=== PATIENT | male | born 1955 | race Caucasian/White ===

== ENCOUNTER → 2019-12-11 08:16 | Outpatient (CLI) | payer MEDICARE, BC, SELFPAY ==
--- NOTE | 2019-12-11 08:16 | MR_ITS ---
PROCEDURE: MR SHOULDER LT WO CON CLINICAL INDICATION: left shoulder pain after fall LT SHOULDER PAIN. PT FELL AND LANDED ON SHOULDER [id number] AGO. PAIN WHEN RAISING ARM. ARM CATCHES AND MAKES A POPPING NOISE. WEAKNESS IN ARM. NO PRIOR. COMPARISON: No exams were available for comparison TECHNIQUE: Routine multiplanar multi echo sequences are performed without gadolinium enhancement. FINDINGS: Hypertrophic changes are present at the acromioclavicular joint with resultant subacromial stenosis. There is some impingement upon the musculotendinous junction of the supraspinatus tendon. There is some increased T2 signal within the supraspinatus and infraspinatus tendons consistent with tendinopathy/tendinosis. A definite tear is not identified. The subscapularis and teres minor tendons are intact. The bicipital tendon is in place. No obvious labral tear. Small amount of fluid is present in the subcoracoid region. IMPRESSION: Hypertrophic changes of the AC joint with some impingement upon the supraspinatus tendon with tendinopathy/tendinosis but no evidence of rotator cuff tear. Small amount fluid noted in the sub coracoid region Dictated by: Reji Green MD 12/12/2019 12:21 Reji Green MD in [place] 12/12/2019 12:21
== END ==
PROVIDERS: PCP Family Medicine; Visit Provider Family Medicine
DX: M25.512 Pain in left shoulder (principal); S49.92XD Unspecified injury of left shoulder and upper arm, subsequent encounter
CPT/HCPCS: 73221

== ENCOUNTER 2020-01-10 13:00 | Outpatient (RCR) | payer MEDICARE, BC, SELFPAY ==
--- NOTE | 2019-12-09 12:05 | HMH.OTOPEV ---
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 Chief Complaint Pain Symptom Type Ache Symptoms Relieved By Nothing Symptoms Aggravated By Physical Activity Prior Functional Limitations None Current Functional Limitations Reaching,Lifting Symptom Description Constant and Continuous Level of pain today (0-10) 6 Pain scale - at its best (0-10) 6 Pain scale - at its worst (0-10) 10 Shoulder/Elbow Eval Shoulder Objective Measurements Shoulder ROM Left Shoulder Abduction Active Range of 80 Motion (degrees) Shoulder Flexion Active Range of Motion 90 (degrees) Query Text: Shoulder External Rotation Active Range 50 of Motion (degrees) Shoulder Internal Rotation Active Range 60 of Motion (degrees) Shoulder MMT Shoulder Abduction Strength Grade 3- Fair- Shoulder Flexion Strength Grade 3- Fair- Shoulder Horizontal Abduction Strength 3- Fair- Grade Shoulder Horizontal Adduction Strength 3- Fair- Grade Shoulder External Rotation Strength 3- Fair- Grade Shoulder Internal Rotation Strength 3- Fair- Grade Shoulder Strength Patient Testing Sitting Position Shoulder Special Tests impingement sign present shoulder exam left standard Shoulder Drop Arm Test Negative Left Shoulder Empty Can (Supraspinatus) Test Positive Left Shoulder Mendiola-Brian Impingement Positive Left Test Elbow Objective Measurements OT Outpatient Assessment Impairments Problems/Impairments Impaired Range of Motion, Impaired Strength,Subjective C /O Pain Prognosis Rehab Potential Good Clinical Impression Consistent with Diagnosis Yes Short Term Goals Number of Weeks 2 Increase Range of Motion Yes: L shoulder AROM flex: 120 ; ABD: 120; ER: 60 and IR
--- NOTE | 2020-01-06 14:01 | HMH.RHREAS ---
Rehab Reassessment Rehab OP Re-assessment Start: 01/06/20 13:10 Freq: Status: Active Protocol: Document 01/06/20 13:44 KENNYRUBEN (Rec: 01/06/20 13:57 KENNYRUBEN [id number]) Electronically Signed By Antoinette Queen, RADHA 01/06/20 13:44 Rehab Re-assessment Subjective Subjective My shoulder is still bothering me. I see the doctor on the . Objective Objective Notes Patient has participated well in skilled OP services of thera act, thera exer and modalities to improve B UE AAROM, AROM and decrease pain management. Patient AROM of B UE shoulder flex, ABD, ER and IR, strengthen and endurance has improved. However Patient continues to verbalize increase high pain levels at night. 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 Assessment Progress Assessment Progressing as Expected Assessment Notes AROM has improved. Endurance has improved. Pain remained the same. Patient goals met L shoulder AROM flex: 130 ABD: 120 ER: 70 IR: 65 Goals Not Met L pain levels 6/10 Revised Goals L shoulder AROM flex: 140 ABD: 140 ER: 80 IR: 65 Pain at worst 5/10 Endurance to 40 mins prior to RB. Plan Plan Patient to complete another OT session on 01/10/20. Follow with ortho on 01/14/20 Frequency of Therapy 1-2x/wk Duration of therapy 4 Time and Billing Re-Eval Time 15 Re-Eval Billing Units 1 PHYSICIAN CERTIFICATION: I certify the specified therapy services for Chris Eddy are required, authorized, and reviewed every 30 days.
== END 2020-01-10 14:02 | disposition home or self-care (01) ==
LOC: OT 13:00
PROVIDERS: PCP Family Medicine; Visit Provider Family Medicine
DX: S49.92XD Unspecified injury of left shoulder and upper arm, subsequent encounter (principal); M25.512 Pain in left shoulder
CPT/HCPCS: 97014; 97033; 97035; 97110; 97164; 97530; G0283

== ENCOUNTER → 2020-01-14 13:23 | Outpatient (CLI) | payer MEDICARE, BC, SELFPAY ==
--- NOTE | 2020-01-14 13:30 | XR_ITS ---
PROCEDURE: XR SHOULDER LT MIN 2V CLINICAL INDICATION: left shoulder pain COMPARISON: No exams were available for comparison FINDINGS: Osteoarthritic changes are present at the acromioclavicular joint and glenohumeral joint. No fracture or dislocation. No lytic or blastic change. Other findings:No significant subacromial stenosis IMPRESSION: Mild osteoarthritis Dictated by: Reji Green MD 01/14/2020 16:59 Reji Green MD in [place] 01/14/2020 16:59
== END ==
PROVIDERS: PCP Family Medicine; Visit Provider Orthopaedic Surgery
DX: M25.512 Pain in left shoulder (principal)
CPT/HCPCS: 73030

== ENCOUNTER → 2020-04-21 07:52 | Outpatient (CLI) | payer MEDICARE, BC, SELFPAY ==
--- NOTE | 2020-04-21 07:53 | MR_ITS ---
PROCEDURE: MR CERVICAL SPINE WO CON (3D volume rendering MRI myelogram image set included) Referring Doctor: Paolo Colunga Patient Age:65Y CLINICAL INDICATION: neck pain Left side neck pain since fallJuly 2019 left arm pain and numbness COMPARISON: No exams were available for comparison TECHNIQUE: Standard multiplanar multiecho sequences are performed without contrast. 3-D MIP and myelographic images are also rendered and reviewed 3D volume rendering MRI myelogram image set included performed on MRI workstation FINDINGS: No prominent cranial cervical junction is normal. Normal alignment C-spine with no subluxation. Vertebral bodies are intact and disc spaces are well maintained. I would only note that at C4/5 there is a small disc protrusion at midline which mildly effaces the thecal sac and may just abut the cervical cord but does not it. There is a generous volume underlying osseous cervical canal in the cervical cord appears normal in caliber and signal throughout. The 3D MR myelogram image set shows only scant if any anterior indentation upon the thecal sac C4/5. No significant cut off of nerve root sleeves. Most notable additional finding are the perineural cysts lower lower C-spine c. These are seen along and towards periphery of-neural foramen most evident at C6/7 and to less degree C5/6 of with small perineural cyst at C4/5 to the left the only IMPRESSION: No prominent findings at the C-spine. Minor observations Only trace/scant central disc protrusion at C4/5 noted. Barely appreciable and only very slightly indenting the thecal sac at midline. Other minor observation: Incidental note small perineural cysts at the lower [id number] evident bilaterally at C6/7 and C5/6, and less evident to the left C4/5 Dictated by: Evangelista Dasilva MD 04/26/2020 13:27 Evangelista Dasilva MD in [place] 04/26/2020 13:27
== END ==
PROVIDERS: PCP Family Medicine; Visit Provider Family Medicine
DX: M54.2 Cervicalgia (principal)
CPT/HCPCS: 72141; 76376

== ENCOUNTER → 2020-05-18 18:08 | Outpatient (CLI) | payer MEDICARE, BC, SELFPAY ==
[2020-05-26 11:23] LABS: Neisseria gonorrhoeae, NAA Negative (Negative)
== END ==
PROVIDERS: Visit Provider Family Medicine
DX: Z11.3 Encounter for screening for infections with a predominantly sexual mode of transmission (principal); Z72.51 High risk heterosexual behavior; Z72.89 Other problems related to lifestyle
CPT/HCPCS: 87491; 87591

== ENCOUNTER → 2020-05-27 17:12 | Outpatient (CLI) | payer MEDICARE, BC, SELFPAY | PROVIDERS: PCP Family Medicine; Visit Provider Family Medicine | DX: Z20.822 Contact with and (suspected) exposure to COVID-19 (principal) | CPT/HCPCS: U0003 ==

== ENCOUNTER → 2020-08-20 13:22 | Outpatient (CLI) | payer MEDICARE, BC, SELFPAY ==
[2020-08-20 13:44] LABS: Basophils % 0.5 % (0.1-2.0); Eosinophils # 0.4 K/mm3 (0.0-0.4); Eosinophils % 5.5 % (0.1-12.0); Hematocrit 43.2 % (42.0-52.0); Hemoglobin 14.8 g/dL (14.1-18.0); Lymphocytes # 2.3 K/mm3 (0.7-4.5); Lymphocytes % 28.9 % (10-50); Mean Corpuscular HGB Conc 34.2 g/dL (31.8-35.4); Mean Corpuscular Volume 96.5 fl (80-94); Mean Platelet Volume 8.1 fl (7.4-10.4); Monocytes # 0.6 K/mm3 (0.1-1.0); Neutrophils # 4.6 K/mm3 (1.8-7.8); Platelet Count 225 K/mm3 (142-424); Red Blood Count 4.48 M/mm3 (4.60-6.20); Red Cell Distribution Width 13.8 % (11.5-17.5); White Blood Count 7.9 K/mm3 (4.8-10.8)
[2020-08-20 14:07] LABS: Chloride 102 mmol/L (98-107)
[2020-08-20 14:08] LABS: Potassium 4.4 mmoL/L (3.5-5.1); Sodium 135 mmol/L (136-145)
[2020-08-20 14:10] LABS: Alanine Aminotransferase 64 U/L (12-78); Albumin Level 4.5 g/dl (3.5-5.0); Albumin/Globulin Ratio 1.6 (1.1-1.8); Alkaline Phosphatase 67 U/L (38-126); Anion Gap 15.4 mEq/L (5-15); Aspartate Amino Transferase 47 U/L (17-59); Bilirubin,Total 0.7 mg/dl (0.2-1.3); Blood Urea Nitrogen 14 mg/dl (9-20); Carbon Dioxide 22 mmol/L (22.0-30.0); Cholesterol 224 mg/dl (140-200); Estimated Glomerular Filt Rate 97 ml/min (>60); GFR (African American) 117 ML/MIN (>60); Globulin 2.9 g/dL (1.3-3.2); Total Protein,Serum 7.4 g/dl (6.3-8.2); Triglycerides 245 mg/dl (30-150); VLDL Cholesterol 49 mg/dL (0-40)
[2020-08-20 14:11] LABS: Calcium 9.2 mg/dl (8.4-10.2); Chol/HDL Ratio 6.1 (1-3.5); Glucose 114 mg/dl (74-100); HDL Cholesterol 37 mg/dl (40-60)
[2020-08-20 14:17] LABS: Hemoglobin A1C 6.3 % (4.0-6.0)
[2020-08-20 14:22] LABS: Direct LDL Cholesterol 143.68 mg/dL (100-129)
[2020-08-20 14:28] LABS: T4 (Thyroxine) 7.9 ug/dl (5.53-11.0)
[2020-08-20 14:42] LABS: Thyroid Stimulating Hormone 3.88 uIU/mL (0.465-4.68)
[2020-08-20 15:29] LABS: Prostate Specific Ag Screen 0.7 ng/ml (0.0-4.0)
== END ==
PROVIDERS: Visit Provider Family Medicine
DX: Z12.5 Encounter for screening for malignant neoplasm of prostate (principal); G47.00 Insomnia, unspecified; E11.9 Type 2 diabetes mellitus without complications; N52.9 Male erectile dysfunction, unspecified; Z79.84 Long term (current) use of oral hypoglycemic drugs
CPT/HCPCS: 80053; 80061; 83036; 84436; 84443; 85025; G0103

== ENCOUNTER 2020-10-01 12:02 | Observation (INO) | payer MEDICARE, BC, SELFPAY ==
[2020-10-01 12:18] VITALS: BP 160/87; PULSE 100; RESP 20; TEMP 36.9; O2SAT 96; BMI 37.2
--- NOTE | 2020-10-01 12:53 | XR_ITS ---
PROCEDURE: XR KNEE LT 2V CLINICAL INDICATION: pain COMPARISON: No exams were available for comparison FINDINGS: There is very slight decrease in the joint space medially which may be related to minimal osteoarthritic change. No fracture or dislocation. No lytic or blastic change. Other findings:None. IMPRESSION: Minimal osteoarthritic change medial compartment Dictated by: Reji Green MD 10/01/2020 14:28 Reji Green MD in [place] 10/01/2020 14:28
--- NOTE | 2020-10-01 12:53 | XR_ITS ---
PROCEDURE: XR KNEE RT 2V CLINICAL INDICATION: pain COMPARISON: No exams were available for comparison FINDINGS: No fracture or dislocation. No lytic or blastic change. There is normal mineralization. There are mild osteoarthritic changes of the medial compartment and to lesser degree at the patellofemoral joint and lateral compartment. Other findings:There may be a small suprapatellar effusion. IMPRESSION: Mild osteoarthritis Dictated by: Reji Green MD 10/01/2020 14:27 Reji Green MD in [place] 10/01/2020 14:27
--- NOTE | 2020-10-01 12:53 | XR_ITS ---
PROCEDURE: XR CHEST 2V CLINICAL HISTORY: dyspnea COMPARISON: No exams were available for comparison FINDINGS: The cardiomediastinal silhouette and pulmonary vascularity are within normal limits. There are slight increased markings in the right lower lung zone medially suspicious for an area of infiltrate. No acute bony abnormalities. IMPRESSION: Possible infiltrate in the right lower lobe medially Dictated by: Reji Green MD 10/01/2020 14:31 Reji Green MD in [place] 10/01/2020 14:31
--- NOTE | 2020-10-01 12:55 | P.CONPHA_ITS ---
[facility] Pharmacy VTE Monitoring - Patient Demographics Admission date: 10/01/20 Report Date: 10/01/20 Time: 12:55 Allergies/Adverse Reactions: Patient Allergies No Known Allergies Allergy (Verified 10/01/20 11:06) Height: 1.88 m Weight: 131.542 kg - Prophylaxis VTE Prophylaxis Ordered?: Yes Types of VTE Prophylaxis: TEDS Knee High Location of Applied Device: Bilateral Lower Extremeties
[2020-10-01 13:35] LABS: Basophils % 0.3 % (0.1-2.0); Eosinophils # 0.3 K/mm3 (0.0-0.4); Eosinophils % 1.8 % (0.1-12.0); Hemoglobin 14.7 g/dL (14.1-18.0); Lymphocytes % 14.3 % (10-50); Mean Corpuscular HGB Conc 34.9 g/dL (31.8-35.4); Mean Corpuscular Hemoglobin 32.9 pg (27.0-31.2); Mean Corpuscular Volume 94.3 fl (80-94); Mean Platelet Volume 8.3 fl (7.4-10.4); Monocytes # 0.9 K/mm3 (0.1-1.0); Monocytes % 6.2 % (1.7-9.3); Neutrophils # 10.9 K/mm3 (1.8-7.8); Neutrophils % 77.5 % (37.0-80.0); Platelet Count 234 K/mm3 (142-424); Red Blood Count 4.45 M/mm3 (4.60-6.20); Red Cell Distribution Width 13.5 % (11.5-17.5); White Blood Count 14.1 K/mm3 (4.8-10.8)
[2020-10-01 13:42] LABS: Chloride 101 mmol/L (98-107); Potassium 4.5 mmoL/L (3.5-5.1); Sodium 135 mmol/L (136-145)
[2020-10-01 13:44] LABS: Blood Urea Nitrogen 20 mg/dl (9-20); Creatinine Clearance Estimated 137 mL/min (50-200); Estimated Glomerular Filt Rate 135 ml/min (>60); GFR (African American) 164 ML/MIN (>60)
[2020-10-01 13:45] LABS: Alanine Aminotransferase 35 U/L (12-78); Albumin Level 4.6 g/dl (3.5-5.0); Albumin/Globulin Ratio 1.3 (1.1-1.8); Alkaline Phosphatase 60 U/L (38-126); Anion Gap 12.5 mEq/L (5-15); Aspartate Amino Transferase 31 U/L (17-59); Bilirubin,Total 0.9 mg/dl (0.2-1.3); Calcium 9.2 mg/dl (8.4-10.2); Carbon Dioxide 26 mmol/L (22.0-30.0); Globulin 3.6 g/dL (1.3-3.2); Glucose 108 mg/dl (74-100); Total Protein,Serum 8.2 g/dl (6.3-8.2)
[2020-10-01 13:51] LABS: C-Reactive Protein 22.8 mg/L (0-4)
[2020-10-01 14:11] LABS: Erythrocyte Sedimentation Rate 73 mm/hr (0-20)
[2020-10-01 14:56] VITALS: BP 158/80; PULSE 98; RESP 18; TEMP 36.7; O2SAT 97
--- NOTE | 2020-10-01 17:36 | PC.NURSE ---
HE IS AOX4, ABLE TO MAKE NEEDS KNOWN TO STAFF, HE HAS BEEN UP TO CHAIR SINCE ARRIVING TO FLOOR, VITAL SIGNS HAVE REMAINED STABLE, PT HAS DENIED DIFFICULTY BREATHING AND HAS NOT REQUIRED O2 SUPPORT, HE DENIES N/V/D, HAS TOLERATED REGULAR DIET WELL, NO NEEDS VOICED
--- NOTE | 2020-10-01 19:19 | HMH.HP ---
*Admission Date: 10/01/20 *Chief complaint: angioedema *History of present illness: Patient is a 65-year-old white male, known to me from the office, who was direct admitted for angioedema with escalating features. The patient had been spraying an insecticide in his garden preceding his admission. He evidently used a very potent dose, and it came in contact with his skin. He developed a skin lesion on the dorsum of his right thumb, had called the office with symptoms suggesting contact dermatitis with possible cellulitis. We called in a course of oral Keflex and topical Temovate. The patient's systemic complaints escalated, he had a low-grade fever, diffuse joint pain, hives on his upper extremities, lower extremities, trunk and back, overt swelling of the lips and earlobes and a sensation of tightness in his neck and throat. He related that he felt absolutely horrible and was concerned about the swelling in his upper airway. This led to the decision to meet him for IV steroids, IV Benadryl, and further work-up. Of note is a visit to the emergency room in [place] but a month ago following a tick bite in his abdomen. He relays that he was put on a course of antibiotics. Receipt of specific information from the hospital is pending at the time of dictation. Patient does not have an YUMIKO inhibitor on board, and I think his symptoms are more related to exposure than infection. He is noted to have inflammatory markers elevated, Lyme studies are pending. [facility] History Medical History: Reports:: Anxiety, Depression, Diabetes Mellitus Type 1, Hypertension *Have you ever received a pneumonia vaccine?: Yes *Have you received a flu vaccine this season?: Yes Other Surgeries: Yes: Colonoscopy, Other Amputation: No Fractures: No - *Social History Last grade of school completed: High school graduate Smoking Status: Never smoker Alcohol Intake: never Alcohol Intake Frequency:: a few times a month Substance Use Type: denies use *Occupational Status:: employed Housing: house Household Members: other *Travel in the last 8 weeks: None - Psychiatric History Pschychiatric History:: Reports:: Anxiety, Depression Family Hx:: Cancer, Diabetes, Heart Attack, Hypertension, Stroke Review of Systems - Constitutional Reports body ache(s), Reports fatigue, Reports fever(s), Reports lack of energy, Reports malaise, Reports weakness - Eyes Denies change in vision - ENT Reports change in voice, Reports hoarseness, Reports lip swelling, Reports mouth pain, Reports pain with swallowing, Reports sore throat, Reports throat swelling, Reports tongue swelling - *Cardiovascular Reports shortness of breath, Denies chest pain - *Respiratory Reports chest congestion - *Gastrointestinal Denies abdominal pain - *Genitourinary Denies difficulty urinating - *Musculoskeletal Reports abnormal walking, Reports joint pain, Reports joint swelling, Reports muscle cramps, Reports muscle weakness, Reports body aches, Reports numbness, Reports stiffness - Integumentary/Breasts Reports changing lesions, Reports redness, Reports lesions, Reports new lesions, Reports rash, Denies yellowing of the skin - *Neurologic Reports abnormal walking, Reports numbness, Reports sensory deficit, Reports weakness - Psychiatric Reports abnormal sleep pattern - Endocrine Reports flushing - Hematologic/Lymphatic Denies easy bleeding - Allergic/Immunologic Reports itchy eyes, Reports lip swelling, Reports throat swelling, Reports tongue swelling, Reports hives, Reports wheezing Meds Home Medications Medication Instructions Recorded Confirmed Type zolpidem 5 mg tablet 5 mg PO HS PRN #30 tab 09/25/20 10/01/20 Rx Atorvastatin Calcium [Lipitor 20mg 20 mg PO DAILY 10/01/20 10/01/20 History Tab] Clobetasol Propionate [Temovate 1 applic TOPICAL BID 10/01/20 10/01/20 History 0.05% cream 15gm tube] Meloxicam 15 mg PO DAILY 10/01/20 10/01/20 History Metformin HCl [Gluc
[2020-10-01 19:32] VITALS: BP 147/82; PULSE 100; RESP 16; TEMP 36.6; O2SAT 96
[2020-10-02 02:09] LABS: POC Glucose,Bedside 413 (70-110)
[2020-10-02 02:27] LABS: POC Glucose,Bedside 244 (70-110)
[2020-10-02 03:47] VITALS: BP 128/74; PULSE 92; RESP 16; TEMP 36.6; O2SAT 92
--- NOTE | 2020-10-02 04:47 | PC.NURSE ---
Patient was a direct admit from Dr. Colunga's office. He us A&Ox4 , vital signs have been stable. Patient has had no complaints this shift. He has rested well. He is independent. Call hall is within reach, bed is in lowest position.
[2020-10-02 05:00] VITALS: BMI 37.2
[2020-10-02 08:00] VITALS: BP 145/83; PULSE 102; RESP 20; TEMP 36.9; O2SAT 96
--- NOTE | 2020-10-02 08:03 | HMH.PHAINT ---
clarified home medication list using list from [facility] and pt interview
--- NOTE | 2020-10-02 08:48 | HMH.DCSUM ---
General - General Admission date:: 10/01/20 Discharge date: 10/02/20 HPI HPI: Patient is a 65-year-old white male, known to me from the office, who was direct admitted for angioedema with escalating features. The patient had been spraying an insecticide in his garden preceding his admission. He evidently used a very potent dose, and it came in contact with his skin. He developed a skin lesion on the dorsum of his right thumb, had called the office with symptoms suggesting contact dermatitis with possible cellulitis. We called in a course of oral Keflex and topical Temovate. The patient's systemic complaints escalated, he had a low-grade fever, diffuse joint pain, hives on his upper extremities, lower extremities, trunk and back, overt swelling of the lips and earlobes and a sensation of tightness in his neck and throat. He related that he felt absolutely horrible and was concerned about the swelling in his upper airway. This led to the decision to meet him for IV steroids, IV Benadryl, and further work-up. Of note is a visit to the emergency room in [place] but a month ago following a tick bite in his abdomen. He relays that he was put on a course of antibiotics. Receipt of specific information from the hospital is pending at the time of dictation. Patient does not have an YUMIKO inhibitor on board, and I think his symptoms are more related to exposure than infection. He is noted to have inflammatory markers elevated, Lyme studies are pending. Hospital Course Hospital Course: Laboratory Tests 10/01/20 10/01/20 10/01/20 13:20 13:20 16:32 WBC 14.1 H RBC 4.45 L Hgb 14.7 Hct 42.0 MCV 94.3 H MCH 32.9 H MCHC 34.9 RDW 13.5 Plt Count 234 MPV 8.3 Neut % (Auto) 77.5 Lymph % (Auto) 14.3 [place] % (Auto) 6.2 Eos % (Auto) 1.8 Baso % (Auto) 0.3 Neut # (Auto) 10.9 H Lymph # (Auto) 2.0 [place] # (Auto) 0.9 Eos # (Auto) 0.3 Baso # (Auto) 0.0 ESR 73 H Sodium 135 L Potassium 4.5 Chloride 101 Carbon Dioxide 26 Anion Gap 12.5 BUN 20 Creatinine 0.60 L Estimated Creat Clear 137 Estimated GFR 135 Est GFR ( Amer) 164 Glucose 108 H POC Glucose 244 H Calcium 9.2 Total Bilirubin 0.9 AST 31 ALT 35 Alkaline Phosphatase 60 C-Reactive Protein 22.8 H Total Protein 8.2 Albumin 4.6 Globulin 3.6 H Albumin/Globulin Ratio 1.3 10/01/20 22:33 WBC RBC Hgb Hct MCV MCH MCHC RDW Plt Count MPV Neut % (Auto) Lymph % (Auto) [place] % (Auto) Eos % (Auto) Baso % (Auto) Neut # (Auto) Lymph # (Auto) [place] # (Auto) Eos # (Auto) Baso # (Auto) ESR Sodium Potassium Chloride Carbon Dioxide Anion Gap BUN Creatinine Estimated Creat Clear Estimated GFR Est GFR ( Amer) Glucose POC Glucose 413 H* Calcium Total Bilirubin AST ALT Alkaline Phosphatase C-Reactive Protein Total Protein Albumin Globulin Albumin/Globulin Ratio Microbiology 10/01/20 13:20 Nasopharyngeal Coronavirus COVID-19 PCR - Final PROCEDURE: XR KNEE LT 2V CLINICAL INDICATION: pain COMPARISON: No exams were available for comparison FINDINGS: There is very slight decrease in the joint space medially which may be related to minimal osteoarthritic change. No fracture or dislocation. No lytic or blastic change. Other findings:None. IMPRESSION: Minimal osteoarthritic change medial compartment PROCEDURE: XR KNEE RT 2V CLINICAL INDICATION: pain COMPARISON: No exams were available for comparison FINDINGS: No fracture or dislocation. No lytic or blastic change. There is normal mineralization. There are mild osteoarthritic changes of the medial compartment and to lesser degree at the patellofemoral joint and lateral compartment. Other findings:There may be a small suprapatellar effusion. IMPRESSION: Mild osteoarthritis PROCEDURE: XR CHEST 2V CLINICAL
[2020-10-02 12:00] LABS: POC Glucose,Bedside 241 (70-110)
== END 2020-10-02 11:14 | disposition home or self-care (01) ==
PROVIDERS: Admitting Provider Family Medicine; PCP Family Medicine; Visit Provider Family Medicine
DX: T78.3XXA Angioneurotic edema, initial encounter (principal); T60.91XA Toxic effect of unspecified pesticide, accidental (unintentional), initial encounter; L25.9 Unspecified contact dermatitis, unspecified cause; E11.9 Type 2 diabetes mellitus without complications; Z79.84 Long term (current) use of oral hypoglycemic drugs; Z79.899 Other long term (current) drug therapy; Y92.017 Garden or yard in single-family (private) house as the place of occurrence of the external cause; I10 Essential (primary) hypertension
CPT/HCPCS: G0379; 36415; 71046; 73560; 80053; 82962; 85025; 85651; 86140; 86618; G0378; U0003

== ENCOUNTER 2020-10-04 18:28 | Emergency (ER) | payer MEDICARE, BC, SELFPAY ==
[2020-10-04 18:29] VITALS: BP 152/85; PULSE 100; RESP 18; TEMP 36.8; O2SAT 95; BMI 36.9
[2020-10-04 19:00] VITALS: BP 146/89; PULSE 97; O2SAT 93
[2020-10-04 19:17] LABS: Basophils # 0.1 K/mm3 (0-0.2); Basophils % 0.4 % (0.1-2.0); Eosinophils # 0.2 K/mm3 (0.0-0.4); Eosinophils % 1.3 % (0.1-12.0); Hemoglobin 14.6 g/dL (14.1-18.0); Lymphocytes # 2.6 K/mm3 (0.7-4.5); Lymphocytes % 16.8 % (10-50); Mean Corpuscular HGB Conc 34.8 g/dL (31.8-35.4); Mean Corpuscular Hemoglobin 32.8 pg (27.0-31.2); Mean Corpuscular Volume 94.2 fl (80-94); Monocytes # 0.8 K/mm3 (0.1-1.0); Monocytes % 5.1 % (1.7-9.3); Neutrophils % 76.4 % (37.0-80.0); Platelet Count 237 K/mm3 (142-424); Red Blood Count 4.46 M/mm3 (4.60-6.20); Red Cell Distribution Width 13.3 % (11.5-17.5); White Blood Count 15.7 K/mm3 (4.8-10.8)
[2020-10-04 19:19] LABS: MANUAL DIFFERENTIAL MANUAL DIFFERENTIAL (MANUAL DIFF)
[2020-10-04 19:20] LABS: Alanine Aminotransferase 61 U/L (12-78); Albumin Level 4.2 g/dl (3.5-5.0); Albumin/Globulin Ratio 1.3 (1.1-1.8); Alkaline Phosphatase 66 U/L (38-126); Anion Gap 12.1 mEq/L (5-15); Aspartate Amino Transferase 34 U/L (17-59); Bilirubin,Total 0.9 mg/dl (0.2-1.3); Blood Urea Nitrogen 14 mg/dl (9-20); Calcium 8.7 mg/dl (8.4-10.2); Carbon Dioxide 28 mmol/L (22.0-30.0); Chloride 99 mmol/L (98-107); Creatinine Clearance Estimated 136 mL/min (50-200); Estimated Glomerular Filt Rate 135 ml/min (>60); GFR (African American) 164 ML/MIN (>60); Globulin 3.3 g/dL (1.3-3.2); Glucose 126 mg/dl (74-100); Potassium 4.1 mmoL/L (3.5-5.1); Sodium 135 mmol/L (136-145); Total Protein,Serum 7.5 g/dl (6.3-8.2)
[2020-10-04 19:30] VITALS: BP 121/68; PULSE 94; O2SAT 93
[2020-10-04 19:32] LABS: Lymphocytes % 12 % (10-50); Monocytes % 4 % (2-9); Neutrophils % 84 % (42-76); Platelet Estimate Normal; RBC Morphology Normal; Total Cells Counted 100
--- NOTE | 2020-10-04 19:41 | HMH.EDGENADL ---
ED Disposition Clinical Impression: Acute urticaria Disposition: Home, Self-Care Condition on Discharge: Good Instructions: DI for Hives Additional Instructions: Prednisone, hydroxyzine, Pepcid as prescribed. See Dr. Colunga in the office tomorrow as scheduled. Additional instructions for ALLERGIC REACTION: Return immediately if severe intolerable rash or itching, trouble breathing, or faintness. Prescriptions: hydrOXYzine pamoate [Hydroxyzine Pamoate] 50 mg PO Q6H 5 Days #20 cap Transmission Status: Pending to [facility] Famotidine [Pepcid 20mg Tablet] 20 mg PO BID 5 Days #10 tab Transmission Status: Pending to [facility] predniSONE [Prednisone 20mg Tab] 20 mg PO BID #10 tab Transmission Status: Pending to [facility] Referrals: Paolo Colunga MD [Primary Care Provider] - - Critical Care Critical Care Time: No Attestation: On 10/04/20, the high probability of a clinically significant, sudden or life threatening deterioration of the following system(s) required my full and direct attention, intervention and personal management. The time I documented below is in addition to time spent performing reported procedures but includes the following listed in this critical care notation. Medical Decision Making - Luis Daniel Inquiry Pt receiving controlled substance: No Vital Signs: 10/04/20 18:29 Temperature 98.2 F Temperature Source Oral Pulse Rate [Right] 100 H Respiratory Rate 18 Blood Pressure [Right Arm] 152/85 H Blood Pressure Mean [Right Arm] 107 02 Sat by Pulse Oximetry 95 Oxygen Delivery Method Room Air - Lab Data Lab Results 10/04/20 19:05: WBC 15.7 H, RBC 4.46 L, Hgb 14.6, Hct 42.0, MCV 94.2 H, MCH 32.8 H, MCHC 34.8, RDW 13.3, Plt Count 237, MPV 8.0, Neut % (Auto) 76.4, Lymph % (Auto) 16.8, [place] % (Auto) 5.1, Eos % (Auto) 1.3, Baso % (Auto) 0.4, Neut # (Auto) 12.0 H, Lymph # (Auto) 2.6, [place] # (Auto) 0.8, Eos # (Auto) 0.2, Baso # (Auto) 0.1, Total Counted 100, Neutrophils % (Manual) 84 H, Lymphocytes % (Manual) 12, Monocytes % (Manual) 4, Platelet Estimate Normal, RBC Morphology Normal 10/04/20 19:05: Sodium 135 L, Potassium 4.1, Chloride 99, Carbon Dioxide 28, Anion Gap 12.1, BUN 14, Creatinine 0.60 L, Estimated Creat Clear 136, Estimated GFR 135, Est GFR ( Amer) 164, Glucose 126 H, Calcium 8.7, Total Bilirubin 0.9, AST 34, ALT 61, Alkaline Phosphatase 66, Total Protein 7.5, Albumin 4.2, Globulin 3.3 H, Albumin/Globulin Ratio 1.3 Result diagrams: 10/04/20 19:05 10/04/20 19:05 Orders (Tests/Meds): ED MEDICATIONS Generic Name Dose Route Start Last Admin Trade Name Freq PRN Reason Stop Dose Admin Sodium Chloride 1,000 mls @ 999 mls/hr 10/04/20 20:15 10/04/20 20:03 Sod Chlor 0.9% 1000ml Bag IV 10/04/20 21:15 999 mls/hr .Q1H1M CRYSTAL Administration Sodium Chloride 8 ml 10/04/20 19:45 Sodium Chloride 0.9% 10ml Vial IV 11/03/20 19:44 NEEDED PRN dilute pepcid Discontinued Medications Generic Name Dose Route Start Last Admin Trade Name Freq PRN Reason Stop Dose Admin Diphenhydramine HCl 25 mg 10/04/20 18:54 10/04/20 19:12 Diphenhydramine 50mg/Ml Vial IV 10/04/20 18:55 25 mg ONCE ONE Administration Famotidine 20 mg 10/04/20 19:45 10/04/20 20:03 Famotidine 20mg/2ml Vial IV 10/04/20 19:46 20 mg ONCE ONE Administration Methylprednisolone Sodium Succinate 125 mg 10/04/20 18:54 10/04/20 19:11 Methylprednisolone Sod Succ 125mg Vial IV 10/04/20 18:55 125 mg ONCE ONE Administration Metoclopramide HCl 5 mg 10/04/20 18:54 10/04/20 19:14 Metoclopramide Hcl 10mg/2ml Vial IVP 10/04/20 18:55 5 mg ONCE ONE Administration - Physician Consults Physician Consulted: Keanu Time: 20:05 Reason -: Pt condition Comment/Response: Start on steroids, antihistamines, Pepcid. He will see the patient in his office tomorrow as scheduled. General Adult HPI - General Chief complaint: Allergic Reaction State
[2020-10-04 20:00] VITALS: BP 136/72; PULSE 94; O2SAT 93
[2020-10-04 20:30] VITALS: BP 136/78; PULSE 93; O2SAT 93
[2020-10-04 21:26] VITALS: BP 134/71; PULSE 91; RESP 16; TEMP 36.8; O2SAT 94
== END 2020-10-04 21:28 | disposition home or self-care (01) ==
PROVIDERS: Emergency Provider Emergency Medicine; PCP Family Medicine
DX: L50.8 Other urticaria (principal); I10 Essential (primary) hypertension; F41.8 Other specified anxiety disorders; E10.9 Type 1 diabetes mellitus without complications; Z79.899 Other long term (current) drug therapy
CPT/HCPCS: 80053; 85007; 85025; 96374; 96375; 99282

== ENCOUNTER 2020-10-30 11:29 | Emergency (ER) | payer MEDICARE, BC, SELFPAY ==
[2020-10-30 11:30] VITALS: BP 166/72; PULSE 96; RESP 20; TEMP 36.7; O2SAT 97; BMI 36.4
--- NOTE | 2020-10-30 12:10 | HMH.EDUTC ---
[facility] [place] Clinical Impression: Acute urticaria Disposition: Home, Self-Care Condition on Discharge: Good Instructions: DI for Hives, DI for General Allergic Reactions, Prednisone Additional Instructions: Make sure to look around and try to avoid weeds or hay to see if that may be what is provoking your hives and allergic reaction Take medication as prescribed Start oral steriods tomorrow you was given injection today Follow up with your Family doctor Return if needed Prescriptions: hydrOXYzine pamoate [Hydroxyzine Pamoate] 50 mg PO Q8HP PRN #15 cap PRN Reason: Itching Transmission Status: Received by [employer] Famotidine [Pepcid 20mg Tablet] 20 mg PO BID #10 tab Transmission Status: Received by [employer] predniSONE [Prednisone 20mg Tab] 20 mg PO BID #10 tab Transmission Status: Received by [employer] Referrals: Paolo Colunga MD [Primary Care Provider] - As needed Time of Disposition: 12:45 Medical Decision Making - Luis Daniel Inquiry Pt receiving controlled substance: No Luis Daniel was queried for this patient: No Vital Signs: 10/30/20 11:30 10/30/20 12:38 Temperature 98.1 F 98.1 F Temperature Source Oral Pulse Rate 96 H Pulse Rate [Right Brachial] 96 H Respiratory Rate 20 20 Blood Pressure 166/72 H Blood Pressure [Right Arm] 166/72 H Blood Pressure Mean [Right Arm] 103 Blood Pressure Source [Right Arm] Automatic Cuff Blood Pressure Position [Right Arm] Sitting 02 Sat by Pulse Oximetry 97 Oxygen Delivery Method Room Air Orders (Tests/Meds): ED MEDICATIONS Discontinued Medications Generic Name Dose Route Start Last Admin Trade Name Freq PRN Reason Stop Dose Admin Famotidine 20 mg 10/30/20 12:17 10/30/20 12:23 Famotidine 20mg Tablet PO 10/30/20 12:18 20 mg ONCE ONE Administration Methylprednisolone Sodium Succinate 125 mg 10/30/20 12:17 10/30/20 12:24 Methylprednisolone Sod Succ 125mg Vial IM 10/30/20 12:18 125 mg ONCE ONE Administration Medical Decision Narrative: Patient state that he was given Prednisone, hydroxyzine and pepcid for his last break out and it worked to clear it up quickly [facility] [place] - General Stated complaint: hives all over body Time Seen by Provider: 10/30/20 12:10 Mode of Arrival: Ambulatory Source of Information: Patient Limitations: No Limitations Description of Symptoms (Recalled from Triage Doc. by RN): PATIENT C/O HIVES ALL OVER BODY. 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 HE WAS SEEN BY PCP AND ADMITTED TO HOSPITAL FOR THE HIVES. ALSO STATES HE CAME BACK AFTER D/C FROM HOSPITAL FOR FLARE UP OF HIVES WELL. HE STATES THE HIVES ARE STARTING TO MAKE HIM FEEL SICK AND REPORTS WEAKNESS, NAUSEA, AND SOA. CURRENTLY TAKING ALLERGY MEDICINES FOR THE HIVES, BUT THEY ARE NOT GETTING BETTER HEENT Symptoms (Recalled from RN notes): No Resp Symptoms (Recalled from RN notes): No Skin Symptoms (Recalled from RN notes): Yes MS Symptoms (Recalled from RN notes): No Functional Status (Recalled from RN notes): WNL - History of Present Illness Provider Complaint: Patient state that he used some commercial grade week killer about three weeks ago and it did not kill the weeds so he pulled them up by hand States that he broke out in hives all over his body and was admitted to the hospital for a day and they give him steriods and they went away States that then he went to another garden that had not been sprayed and pulled some weeds and again had to go to the ED for hives all over his body State that they give him some more steriods and they went away States that on Wed he cut some hay and has been rolling it now having hives again all over his body and in his hair States that he was up most of the night last night itching but they have not figured out what he may be allergic too - Related Data Home Medications Medication Instructions Recorded Confirme
[2020-10-30 12:38] VITALS: BP 166/72; PULSE 96; RESP 20; TEMP 36.7; O2SAT 97
== END 2020-10-30 12:58 | disposition home or self-care (01) ==
PROVIDERS: Emergency Provider Nurse Practitioner; PCP Family Medicine
DX: L50.8 Other urticaria (principal); F41.8 Other specified anxiety disorders; I10 Essential (primary) hypertension
CPT/HCPCS: G0463; 96372; 99202

== ENCOUNTER → 2021-02-18 19:12 | Outpatient (CLI) | payer MEDICARE, BC, SELFPAY ==
[2021-02-18 19:44] LABS: Basophils # 0.1 K/mm3 (0-0.2); Eosinophils # 0.3 K/mm3 (0.0-0.4); Hematocrit 48.8 % (42.0-52.0); Hemoglobin 16.3 g/dL (14.1-18.0); Lymphocytes # 2.2 K/mm3 (0.7-4.5); Lymphocytes % 22.2 % (10-50); Mean Corpuscular HGB Conc 33.5 g/dL (31.8-35.4); Mean Corpuscular Hemoglobin 32.6 pg (27.0-31.2); Mean Corpuscular Volume 97.4 fl (80-94); Mean Platelet Volume 8.3 fl (7.4-10.4); Monocytes # 0.6 K/mm3 (0.1-1.0); Monocytes % 6.1 % (1.7-9.3); Neutrophils # 6.7 K/mm3 (1.8-7.8); Neutrophils % 67.6 % (37.0-80.0); Platelet Count 272 K/mm3 (142-424); Red Blood Count 5.01 M/mm3 (4.60-6.20); Red Cell Distribution Width 13.7 % (11.5-17.5)
[2021-02-18 20:07] LABS: Chloride 102 mmol/L (98-107)
[2021-02-18 20:08] LABS: Sodium 140 mmol/L (136-145)
[2021-02-18 20:10] LABS: Alanine Aminotransferase 47 U/L (12-78); Albumin Level 4.5 g/dl (3.5-5.0); Albumin/Globulin Ratio 1.3 (1.1-1.8); Alkaline Phosphatase 79 U/L (38-126); Aspartate Amino Transferase 41 U/L (17-59); Bilirubin,Total 0.4 mg/dl (0.2-1.3); Blood Urea Nitrogen 8 mg/dl (9-20); Carbon Dioxide 24 mmol/L (22.0-30.0); Estimated Glomerular Filt Rate 166 ml/min (>60); GFR (African American) 201 ML/MIN (>60); Globulin 3.6 g/dL (1.3-3.2); Total Protein,Serum 8.1 g/dl (6.3-8.2)
[2021-02-18 20:11] LABS: Chol/HDL Ratio 4.3 (1-3.5); Cholesterol 145 mg/dl (140-200); Glucose 88 mg/dl (74-100); HDL Cholesterol 34 mg/dl (40-60); Triglycerides 192 mg/dl (30-150); VLDL Cholesterol 38 mg/dL (0-40)
[2021-02-18 20:34] LABS: Thyroid Stimulating Hormone 1.43 uIU/mL (0.465-4.68)
[2021-02-18 20:41] LABS: Direct LDL Cholesterol 85.34 mg/dL (100-129)
[2021-02-18 20:50] LABS: Hemoglobin A1C 5.7 % (4.0-6.0)
== END ==
PROVIDERS: Visit Provider Family Medicine
DX: I10 Essential (primary) hypertension (principal); T78.3XXA Angioneurotic edema, initial encounter; R06.00 Dyspnea, unspecified; E11.9 Type 2 diabetes mellitus without complications; E78.5 Hyperlipidemia, unspecified; Z79.84 Long term (current) use of oral hypoglycemic drugs
CPT/HCPCS: 80053; 80061; 83036; 84443; 85025

== ENCOUNTER → 2021-03-20 09:29 | Outpatient (CLI) | payer MEDICARE, BC, SELFPAY ==
[2021-03-20 09:34] LABS: MANUAL DIFFERENTIAL MANUAL DIFFERENTIAL (MANUAL DIFF)
[2021-03-20 09:55] LABS: Basophils # 0.1 K/mm3 (0-0.2); Basophils % 0.9 % (0.1-2.0); Eosinophils # 0.4 K/mm3 (0.0-0.4); Eosinophils % 4.1 % (0.1-12.0); Hematocrit 44.4 % (42.0-52.0); Hemoglobin 15.4 g/dL (14.1-18.0); Lymphocytes # 1.7 K/mm3 (0.7-4.5); Lymphocytes % 18.4 % (10-50); Mean Corpuscular HGB Conc 34.7 g/dL (31.8-35.4); Mean Corpuscular Hemoglobin 32.7 pg (27.0-31.2); Mean Corpuscular Volume 94.2 fl (80-94); Mean Platelet Volume 7.7 fl (7.4-10.4); Monocytes # 0.6 K/mm3 (0.1-1.0); Monocytes % 6.3 % (1.7-9.3); Neutrophils # 6.4 K/mm3 (1.8-7.8); Neutrophils % 70.2 % (37.0-80.0); Platelet Count 277 K/mm3 (142-424); Red Blood Count 4.71 M/mm3 (4.60-6.20); Red Cell Distribution Width 13.7 % (11.5-17.5); White Blood Count 9.1 K/mm3 (4.8-10.8)
[2021-03-20 10:27] LABS: Chloride 99 mmol/L (98-107)
[2021-03-20 10:28] LABS: Potassium 4.4 mmoL/L (3.5-5.1); Sodium 138 mmol/L (136-145)
[2021-03-20 10:31] LABS: Anion Gap 13.4 mEq/L (5-15); Blood Urea Nitrogen 16 mg/dl (9-20); Calcium 9.4 mg/dl (8.4-10.2); Carbon Dioxide 30 mmol/L (22.0-30.0); Estimated Glomerular Filt Rate 166 ml/min (>60); GFR (African American) 201 ML/MIN (>60); Glucose 160 mg/dl (74-100)
[2021-03-20 11:08] LABS: Eosinophils % 3 % (0-3); Lymphocytes % 20 % (10-50); Monocytes % 7 % (2-9); Neutrophils % 68 % (42-76); Platelet Estimate Normal; RBC Morphology Normal; Total Cells Counted 100
== END ==
PROVIDERS: Visit Provider Urology
DX: N47.1 Phimosis (principal); Z01.812 Encounter for preprocedural laboratory examination; Z11.52 Encounter for screening for COVID-19; Z51.81 Encounter for therapeutic drug level monitoring
CPT/HCPCS: 36415; 80048; 85007; 85014; 85018; 85048; 85049; C9803; U0003; U0005

== ENCOUNTER 2021-03-22 08:50 | Day surgery (SDC) | payer MEDICARE, BC, SELFPAY ==
[2021-03-12 10:58] VITALS: BMI 34.9
[2021-03-22 09:37] VITALS: BP 146/93; PULSE 89; RESP 18; TEMP 36.8; O2SAT 96
--- NOTE | 2021-03-22 11:25 | P.PN_ITS ---
[facility] Anesthesia Checklist - Patient Identification Patient Identification: Arm Band - Structural Data Admitted From: Home Planned Operative Procedure/s: Circumcision Consent for Planned Operative Procedure(s) Verified: Yes - NPO Status Verified Time NPO: 00:00 - Additional verifications Anesthesia Reactions: Yes (difficulty to urinating) Hx Blood Transfusions: No Blood Transfusion Reaction: No - Airway Assessment C-Spine Mobility Assessed: Yes TMJ Mobility Assessed: Yes Dentition: Edentulous - Neurological Assessment Level of Consciousness: Awake Hx Seizures: No Numbness or tingling in extremities: No - Anesthesia Plan Anesthesia Risk discussed: Yes Anesthesia Plan: Verified ASA Class: III Anesthesia Type: MAC [facility] History I have reviewed the patient's past medical history: Yes Medical History: Reports:: Anxiety, Depression, Diabetes Mellitus Type 2, Hypertension Denies:: Cancer, Diabetes Mellitus Type 1, Internal Pacemaker, MRSA, Seizures *Have you ever received a pneumonia vaccine?: Yes *Have you received a flu vaccine this season?: No Other Medical History: Reports: Arthritis. Denies: Blood Transfusion Reaction Anesthesia experience/problems:: None Other Surgeries: Yes: No Previous Surgery, Colonoscopy, Other. No: Pacemaker Amputation: No Fractures: No - *Social History Last grade of school completed: High school graduate Smoking Status: Never smoker Tobacco Type: smokeless tobacco # Packs/Day (cigarettes): 1 Alcohol Intake: current Alcohol Intake Frequency:: holidays/special occasions only Substance Use Type: denies use *Occupational Status:: retired Housing: house Household Members: other *Travel in the last 8 weeks: None - Psychiatric History Pschychiatric History:: Reports:: Anxiety, Depression Family Hx:: Cancer, Diabetes
[2021-03-22 12:18] VITALS: BP 109/52; PULSE 90; RESP 18; TEMP 36.3; O2SAT 94
[2021-03-22 12:33] VITALS: BP 118/56; PULSE 92; RESP 16; TEMP 36.3; O2SAT 93
[2021-03-22 12:48] VITALS: BP 116/67; PULSE 91; RESP 16; TEMP 36.3; O2SAT 96
--- NOTE | 2021-03-22 16:57 | P.OP_ITS ---
Date of procedure: 03/22/21 Pre-op Diagnosis:: Penile phimosis Post-op Diagnosis:: Penile phimosis Procedure performed:: Circumcision, adult Surgeon:: Cedrick Richardson MD NIGHT COORDINATOR:: Sly Russ Anesthesia: MAC Estimated blood loss (mL): 2 Clinical Note:: 66-year-old white male with penile phimosis. He presents for urologic management. Operative findings:: Penile phimosis is noted. After cutting and retracting the foreskin back there are some chronic changes at the glans penis and foreskin. No cancers noted. Operative note:: Patient taken to the operating room after informed consent was obtained. He was placed on the operating table in the supine position and general anesthesia administered. Preoperative antibiotics and sequential compression devices placed. 30 cc of local anesthetic was placed as a ring block around the base of the penis in a circumferential fashion. After adequate anesthesia incision was marked at the [place] of the glans. Straight clamp was used to clamp the dorsal foreskin back to the marked line for 30 seconds. It was then released and scissors used to incise the skin. Additional prep was placed after pulling the foreskin back. Foreskin was then clamped at 4 positions and scissors used to incise the foreskin in a circumferential fashion. Hemostasis then achieved of the underlying tissue and the skin was approximated 3-0 chromic's in interrupted fashion. The foreskin was noted to be very adhesed and adherent to the chronic phimosis. Compression dressing applied. Patient tolerated procedure well no complications. Condition: stable Disposition: same day Specimens:: Foreskin Complications:: None
[2022-01-20 10:54] LABS: POC Glucose,Bedside 117 (70-110)
== END 2021-03-22 12:50 | disposition home or self-care (01) ==
LOC: OR 08:51
PROVIDERS: PCP Family Medicine; Visit Provider Urology
DX: N47.1 Phimosis (principal); F41.9 Anxiety disorder, unspecified; F32.A Depression, unspecified; E11.9 Type 2 diabetes mellitus without complications; I10 Essential (primary) hypertension; M19.90 Unspecified osteoarthritis, unspecified site; F20.9 Schizophrenia, unspecified; F43.10 Post-traumatic stress disorder, unspecified; Z79.84 Long term (current) use of oral hypoglycemic drugs; Z79.899 Other long term (current) drug therapy
CPT/HCPCS: 54150; 82962; 96374

== ENCOUNTER → 2021-04-12 14:31 | Outpatient (CLI) | payer MEDICARE, BC, SELFPAY | PROVIDERS: Visit Provider Family Medicine | DX: Z98.890 Other specified postprocedural states (principal) | CPT/HCPCS: 87070; 87077; 87186; 87205 ==

== ENCOUNTER → 2021-06-14 16:00 | Outpatient (CLI) | payer MEDICARE, SELFPAY ==
[2021-06-14 19:19] LABS: Basophils # 0.1 K/mm3 (0-0.2); Basophils % 0.5 % (0.1-2.0); Eosinophils # 0.3 K/mm3 (0.0-0.4); Hematocrit 46.7 % (42.0-52.0); Hemoglobin 15.7 g/dL (14.1-18.0); Lymphocytes # 2.5 K/mm3 (0.7-4.5); Lymphocytes % 23.6 % (10-50); Mean Corpuscular HGB Conc 33.5 g/dL (31.8-35.4); Mean Corpuscular Hemoglobin 32.3 pg (27.0-31.2); Mean Corpuscular Volume 96.5 fl (80-94); Mean Platelet Volume 8.8 fl (7.4-10.4); Monocytes # 0.6 K/mm3 (0.1-1.0); Monocytes % 5.3 % (1.7-9.3); Neutrophils # 7.1 K/mm3 (1.8-7.8); Neutrophils % 67.6 % (37.0-80.0); Platelet Count 341 K/mm3 (142-424); Red Blood Count 4.84 M/mm3 (4.60-6.20); Red Cell Distribution Width 13.6 % (11.5-17.5); White Blood Count 10.5 K/mm3 (4.8-10.8)
[2021-06-14 19:49] LABS: Alanine Aminotransferase 36 U/L (12-78); Albumin Level 4.4 g/dl (3.5-5.0); Albumin/Globulin Ratio 1.3 (1.1-1.8); Alkaline Phosphatase 91 U/L (38-126); Anion Gap 15.3 mEq/L (5-15); Aspartate Amino Transferase 35 U/L (17-59); Bilirubin,Total 0.5 mg/dl (0.2-1.3); Blood Urea Nitrogen 17 mg/dl (9-20); Calcium 9.2 mg/dl (8.4-10.2); Carbon Dioxide 26 mmol/L (22.0-30.0); Chloride 100 mmol/L (98-107); Chol/HDL Ratio 4.5 (1-3.5); Cholesterol 201 mg/dl (140-200); Estimated Glomerular Filt Rate 135 ml/min (>60); GFR (African American) 163 ML/MIN (>60); Globulin 3.5 g/dL (1.3-3.2); Glucose 102 mg/dl (74-100); HDL Cholesterol 45 mg/dl (40-60); Potassium 4.3 mmoL/L (3.5-5.1); Sodium 137 mmol/L (136-145); Total Protein,Serum 7.9 g/dl (6.3-8.2); Triglycerides 88 mg/dl (30-150); VLDL Cholesterol 18 mg/dL (0-40)
[2021-06-14 20:06] LABS: 25-OH Vitamin D, Total 38.4 ng/mL (30-100)
[2021-06-14 20:20] LABS: Thyroid Stimulating Hormone 2.77 uIU/mL (0.465-4.68)
== END ==
LOC: LAB.DROPOF 06-16 09:33
PROVIDERS: Visit Provider Family Medicine
DX: Z00.00 Encounter for general adult medical examination without abnormal findings (principal); R06.00 Dyspnea, unspecified; T78.3XXA Angioneurotic edema, initial encounter; E55.9 Vitamin D deficiency, unspecified; N52.9 Male erectile dysfunction, unspecified
CPT/HCPCS: 80053; 80061; 82306; 84443; 85025

== ENCOUNTER → 2021-07-20 13:24 | Outpatient (CLI) | payer MEDICARE, SELFPAY ==
[2021-07-20 13:50] LABS: Erythrocyte Sedimentation Rate 26 mm/hr (0-20)
[2021-07-20 14:13] LABS: Uric Acid 5.2 mg/dl (3.5-8.5)
[2021-07-20 14:30] LABS: C-Reactive Protein 16.5 mg/L (0-4)
[2021-07-21 12:19] LABS: RA Latex Turbid. 589.1 IU/mL (<14.0)
[2021-07-21 18:10] LABS: Antinuclear Antibodies, IFA Negative (.)
== END ==
LOC: LAB.DROPOF 08-12 13:24
PROVIDERS: Visit Provider Family Medicine
DX: T78.3XXA Angioneurotic edema, initial encounter (principal)
CPT/HCPCS: 84550; 85651; 86038; 86140; 86431

== ENCOUNTER → 2021-08-20 16:00 | Outpatient (CLI) | payer MEDICARE, SELFPAY ==
[2021-08-20 17:20] LABS: Alanine Aminotransferase 31 U/L (12-78); Albumin Level 3.8 g/dl (3.5-5.0); Albumin/Globulin Ratio 1.3 (1.1-1.8); Alkaline Phosphatase 65 U/L (38-126); Anion Gap 12.8 mEq/L (5-15); Aspartate Amino Transferase 25 U/L (17-59); Basophils # 0.1 K/mm3 (0-0.2); Basophils % 0.6 % (0.1-2.0); Bilirubin,Total 0.5 mg/dl (0.2-1.3); Blood Urea Nitrogen 21 mg/dl (9-20); Calcium 9.1 mg/dl (8.4-10.2); Carbon Dioxide 28 mmol/L (22.0-30.0); Chloride 103 mmol/L (98-107); Eosinophils # 0.1 K/mm3 (0.0-0.4); Eosinophils % 1.2 % (0.1-12.0); Estimated Glomerular Filt Rate 97 ml/min (>60); GFR (African American) 117 ML/MIN (>60); Globulin 2.9 g/dL (1.3-3.2); Glucose 113 mg/dl (74-100); Hematocrit 42.2 % (42.0-52.0); Hemoglobin 14.2 g/dL (14.1-18.0); Lymphocytes # 3.1 K/mm3 (0.7-4.5); Lymphocytes % 26.4 % (10-50); Mean Corpuscular HGB Conc 33.5 g/dL (31.8-35.4); Mean Corpuscular Hemoglobin 32.3 pg (27.0-31.2); Mean Corpuscular Volume 96.4 fl (80-94); Mean Platelet Volume 9.1 fl (7.4-10.4); Monocytes # 0.6 K/mm3 (0.1-1.0); Monocytes % 4.9 % (1.7-9.3); Neutrophils # 7.9 K/mm3 (1.8-7.8); Neutrophils % 66.9 % (37.0-80.0); Platelet Count 239 K/mm3 (142-424); Potassium 3.8 mmoL/L (3.5-5.1); Red Blood Count 4.38 M/mm3 (4.60-6.20); Red Cell Distribution Width 14.5 % (11.5-17.5); Sodium 140 mmol/L (136-145); Total Protein,Serum 6.7 g/dl (6.3-8.2); White Blood Count 11.7 K/mm3 (4.8-10.8)
== END ==
LOC: LAB.DROPOF 08-23 18:04
PROVIDERS: Visit Provider Family Medicine
DX: M15.4 Erosive (osteo)arthritis (principal); T78.3XXA Angioneurotic edema, initial encounter
CPT/HCPCS: 80053; 85025

== ENCOUNTER → 2021-12-08 20:43 | Outpatient (CLI) | payer MEDICARE, SELFPAY | PROVIDERS: PCP Family Medicine; Visit Provider Emergency Medicine | DX: U07.1 COVID-19 (principal) | CPT/HCPCS: C9803; U0003; U0005 ==

== ENCOUNTER → 2022-05-13 15:09 | Outpatient (CLI) | payer MEDICARE, SELFPAY ==
[2022-05-13 14:09] LABS: Coronavirus 19, PCR Not Detected (NotDetected); Influenza A, PCR Not Detected (NotDetected); Influenza B, PCR Not Detected (NotDetected)
== END ==
PROVIDERS: PCP Family Medicine; Visit Provider Family Medicine
DX: R05.9 Cough, unspecified (principal)
CPT/HCPCS: C9803; U0003; U0005

== ENCOUNTER → 2022-06-13 15:06 | Outpatient (CLI) | payer MEDICARE, SELFPAY ==
--- NOTE | 2022-06-13 15:12 | XR_ITS ---
FINAL REPORT TECHNIQUE: Chest PA & Lateral CLINICAL HISTORY: soa for 2 months, pain in chest, frequent bouts of pna COMPARISON: September 2020 FINDINGS: 2 views of the chest were performed. The heart size is normal. The mediastinum is within normal limits. There is mild scarring in the lung bases. There are no pleural effusions. There is no pneumothorax. The bony thorax appears intact. IMPRESSION: No acute cardiopulmonary process. Reviewed, Interpreted and Dictated by Micky Cavazos III, MD Transcribed by Perez Jeuss Authenticated and [facility]
== END ==
LOC: RAD 15:08
PROVIDERS: PCP Family Medicine; Visit Provider Family Medicine
DX: J18.9 Pneumonia, unspecified organism (principal)
CPT/HCPCS: 71046

== ENCOUNTER → 2022-08-08 23:35 | Outpatient (CLI) | payer MEDICARE, SELFPAY ==
[2022-08-08 18:56] LABS: Alanine Aminotransferase 55 U/L (12-78); Albumin Level 4.1 g/dl (3.5-5.0); Albumin/Globulin Ratio 1.6 (1.1-1.8); Alkaline Phosphatase 59 U/L (38-126); Anion Gap 7.9 mEq/L (5-15); Aspartate Amino Transferase 35 U/L (17-59); Bilirubin,Total 0.5 mg/dl (0.2-1.3); Blood Urea Nitrogen 16 mg/dl (9-20); Calcium 8.8 mg/dl (8.4-10.2); Carbon Dioxide 27 mmol/L (22.0-30.0); Chloride 103 mmol/L (98-107); Chol/HDL Ratio 2.6 (1-3.5); Cholesterol 135 mg/dl (140-200); Estimated Glomerular Filt Rate 166 ml/min (>60); GFR (African American) 201 ML/MIN (>60); Globulin 2.6 g/dL (1.3-3.2); Glucose 136 mg/dl (74-100); HDL Cholesterol 51 mg/dl (40-60); Potassium 3.9 mmoL/L (3.5-5.1); Sodium 134 mmol/L (136-145); Total Protein,Serum 6.7 g/dl (6.3-8.2); Triglycerides 169 mg/dl (30-150); VLDL Cholesterol 34 mg/dL (0-40)
[2022-08-08 19:07] LABS: Direct LDL Cholesterol 65.78 mg/dL (100-129)
[2022-08-08 19:22] LABS: Basophils % 0.1 % (0.1-2.0); Eosinophils % 0.2 % (0.1-12.0); Hemoglobin 15.1 g/dL (14.1-18.0); Lymphocytes % 8.4 % (10-50); Mean Corpuscular HGB Conc 33.4 g/dL (31.8-35.4); Mean Corpuscular Hemoglobin 32.2 pg (27.0-31.2); Mean Corpuscular Volume 96.2 fl (80-94); Mean Platelet Volume 9.2 fl (7.4-10.4); Monocytes # 0.4 K/mm3 (0.1-1.0); Monocytes % 3.3 % (1.7-9.3); Platelet Count 214 K/mm3 (142-424); Red Blood Count 4.68 M/mm3 (4.60-6.20); White Blood Count 12.5 K/mm3 (4.8-10.8)
[2022-08-08 19:26] LABS: Thyroid Stimulating Hormone 1.27 uIU/mL (0.465-4.68)
[2022-08-08 19:29] LABS: MANUAL DIFFERENTIAL MANUAL DIFFERENTIAL (MANUAL DIFF)
[2022-08-08 19:50] LABS: Hemoglobin A1C 5.9 % (4.0-6.0)
[2022-08-08 20:38] LABS: Eosinophils % 1 % (0-3); Lymphocytes % 9 % (10-50); Monocytes % 3 % (2-9); Neutrophils % 87 % (42-76); Total Cells Counted 100
[2022-08-08 20:39] LABS: Platelet Estimate Normal; RBC Morphology Normal
== END ==
PROVIDERS: PCP Family Medicine; Visit Provider Family Medicine
DX: F39 Unspecified mood [affective] disorder (principal); G47.00 Insomnia, unspecified; N52.9 Male erectile dysfunction, unspecified; Z79.899 Other long term (current) drug therapy
CPT/HCPCS: 80053; 80061; 83036; 84443; 85007; 85025

== ENCOUNTER → 2022-10-06 14:05 | Outpatient (CLI) | payer MEDICARE, SELFPAY ==
--- NOTE | 2022-10-06 14:05 | CT_ITS ---
FINAL REPORT TECHNIQUE: Axial CT images were performed from the lung apices through the upper abdomen. Inspiration and expiration supine images were obtained. In addition prone images in inspiration were obtained. Coronal and sagittal reformats were submitted. This study was performed with techniques to keep radiation doses as low as reasonably achievable (ALARA). Individualized dose reduction techniques using automated exposure control or adjustment of mA and/or kV according to the patient's size were employed. CLINICAL HISTORY: soa FINDINGS: Severe coronary artery calcifications are identified. There is no evidence of emphysema or bronchiectasis identified. There is mild peripheral interstitial fibrosis present. There are small areas of air trapping in the upper lobes seen on the expiration images. There is no axillary adenopathy. There is no hilar or mediastinal mass or adenopathy. Heart size is normal. There is no pericardial or pleural effusion. Gallstones are identified in the gallbladder. Moderate vascular calcifications are noted. IMPRESSION: Mild peripheral interstitial fibrosis. Small areas of air trapping in the upper lobes on expiration. Gallstone present. Reviewed, Interpreted and Dictated by Micky Cavazos III, MD Transcribed by Cynthia Villa Authenticated and [facility]
[2022-10-06 15:10] VITALS: PULSE 87
== END ==
PROVIDERS: PCP Family Medicine; Visit Provider Internal Medicine Pulmonary Disease
DX: J84.9 Interstitial pulmonary disease, unspecified (principal); R06.02 Shortness of breath
CPT/HCPCS: 71250; 94060; 94618; 94640; 94727; 94729

== ENCOUNTER → 2023-01-16 14:38 | Outpatient (CLI) | payer MEDICARE, SELFPAY ==
--- NOTE | 2023-01-16 15:08 | PC.NURSE ---
Pre and Post Spirometry completed without incident. Albuterol 0.083% given via HHN, per protocol, Pt tolerated tx well.
== END ==
PROVIDERS: PCP Family Medicine; Visit Provider Internal Medicine Pulmonary Disease
DX: R06.02 Shortness of breath (principal)
CPT/HCPCS: 94060; 94726; 94729

== ENCOUNTER → 2023-03-31 09:05 | Outpatient (CLI) | payer MEDICARE, SELFPAY ==
[2023-03-31 21:55] LABS: Amphetamine/Metha Screen,Urine Negative ng/ml (<1000)
[2023-03-31 21:56] LABS: Barbiturates Screen,Urine Negative ng/ml (<200); Benzodiazepines Screen,Urine Negative ng/ml (<200)
[2023-03-31 21:57] LABS: Cannabinoid Screen,Urine Positive ng/ml (<50)
[2023-03-31 21:58] LABS: Cocaine Screen,Urine Negative ng/ml (<300)
[2023-03-31 21:59] LABS: Methadone Screen,Urine Negative ng/ml (<300); Opiate Screen,Urine Negative ng/ml (<300)
[2023-03-31 22:00] LABS: Phencyclidine Screen,Urine Negative ng/ml (<25)
== END ==
PROVIDERS: PCP Family Medicine; Visit Provider Family Medicine
DX: M54.2 Cervicalgia (principal)
CPT/HCPCS: 80305

== ENCOUNTER 2023-04-28 09:27 | Outpatient (CLI) | payer MEDICARE, SELFPAY ==
[2023-04-28 23:22] LABS: Amphetamine/Metha Screen,Urine Negative ng/ml (<1000); Barbiturates Screen,Urine Negative ng/ml (<200); Benzodiazepines Screen,Urine Negative ng/ml (<200); Cannabinoid Screen,Urine Negative ng/ml (<50); Cocaine Screen,Urine Negative ng/ml (<300); Methadone Screen,Urine Negative ng/ml (<300); Opiate Screen,Urine Negative ng/ml (<300); Phencyclidine Screen,Urine Negative ng/ml (<25)
== END 2023-04-28 23:59 ==
LOC: LAB.DROPOF 04-29 09:28
PROVIDERS: PCP Family Medicine; Visit Provider Family Medicine
DX: Z79.899 Other long term (current) drug therapy (principal)
CPT/HCPCS: 80307

== ENCOUNTER 2023-05-15 18:24 | Outpatient (CLI) | payer MEDICARE, SELFPAY ==
[2023-05-15 23:47] LABS: Amphetamine/Metha Screen,Urine Negative ng/ml (<1000); Barbiturates Screen,Urine Negative ng/ml (<200)
[2023-05-15 23:48] LABS: Benzodiazepines Screen,Urine Negative ng/ml (<200); Cannabinoid Screen,Urine Negative ng/ml (<50)
[2023-05-15 23:49] LABS: Cocaine Screen,Urine Negative ng/ml (<300)
[2023-05-15 23:50] LABS: Methadone Screen,Urine Negative ng/ml (<300)
[2023-05-15 23:51] LABS: Opiate Screen,Urine Positive ng/ml (<300)
[2023-05-16] LABS: Phencyclidine Screen,Urine Negative ng/ml (<25)
== END 2023-05-15 23:59 ==
LOC: LAB.DROPOF 18:24
PROVIDERS: PCP Family Medicine; Visit Provider Family Medicine
DX: Z79.899 Other long term (current) drug therapy (principal)
CPT/HCPCS: 80307

== ENCOUNTER 2023-05-25 11:50 | Emergency (ER) | payer MEDICARE, SELFPAY ==
[2023-05-25 12:30] VITALS: BP 160/87; PULSE 104; RESP 18; TEMP 36.7; O2SAT 97; BMI 36.3
--- NOTE | 2023-05-25 12:36 | ED_ITS ---
Discharge Plan Disposition Patient Disposition: Home, Self-Care Condition: Good Prescriptions Prescriptions: New furosemide [Lasix] 20 mg tablet 20 mg PO DAILY Qty: 5 0RF No Action albuterol sulfate 90 mcg/actuation HFA aerosol inhaler 2 puff inhalation QID PRN (Reason: shortness of breath or wheezing) Qty: 8.5 10RF albuterol sulfate 2.5 mg /3 mL (0.083 %) solution for nebulization 2.5 mg inhalation QID Qty: 180 10RF folic acid 1 mg tablet 1 mg PO DAILY Qty: 90 3RF metformin 500 mg tablet See Rx Instructions .ROUTE .COMPLEX Qty: 180 3RF Dose Instruction: TAKE 1 TABLET BY MOUTH 2 TIMES DAILY FOR DIABETES. Rx Instructions: TAKE 1 TABLET BY MOUTH 2 TIMES DAILY FOR DIABETES. prednisone 20 mg tablet 40 mg PO DAILY Qty: 60 3RF sulfamethoxazole-trimethoprim [Bactrim DS] 800-160 mg tablet 1 tab PO .q48 hrs Qty: 45 0RF Rx Instructions: One tablet by oral every other day. atorvastatin 20 mg tablet See Rx Instructions .ROUTE .COMPLEX Qty: 90 3RF Dose Instruction: TAKE 1 TABLET BY MOUTH ONCE A DAY Rx Instructions: TAKE 1 TABLET BY MOUTH ONCE A DAY oxycodone-acetaminophen [Percocet] 10-325 mg tablet 1 tab PO TID PRN (Reason: pain) Qty: 90 0RF Rx Instructions: for severe pain assoc w/rheumatoid gabapentin 300 mg capsule 300 mg PO Q8H PRN (Reason: neuropathy) Qty: 90 3RF Referrals Follow up/Referrals: Paolo Colunga MD [Primary Care Provider] - See instructions Activity Restrictions/Add. Instructions Additional Instructions/Restrictions: Resume your normal oral steroids Take the medications as directed. Follow up with your regular doctor within the next 48 to 72 hours. GO TO THE ER FOR ANY WORSENING SYMPTOMS Clinical Impressions Clinical Impression: Arthralgia, Rheumatoid arthritis, Pedal edema Instructions Patient Instructions: DI for Arthralgia, Furosemide, Ketorolac Injection, Dexamethasone Injection Discharge ED Provider: Hilario Raza [facility] General Stated complaint: joints hands and feet aching Time Seen by Provider: 05/25/23 12:36 History of Present Illness Provider Complaint: He states that over the past several days he has had worsening joint pain in his hands and feet. He has a history of rheumatoid arthritis. He states that in the past he has had to get a steroid shot to try to help it. He also states that over the past several days he has developed some swelling in both his feet. He states that the swelling causes his pain to be worse in his feet. He denies any shortness of breath, cough, congestion, chest pain, fever and malaise. He does state that the joint pain makes him feel more fatigued than his normal. Related Data Previous Rx's Medication Instructions Recorded albuterol sulfate 90 mcg/actuation 2 puff inhalation QID PRN 04/26/22 aerosol inhaler shortness of breath or wheezing #8.5 grams albuterol sulfate 2.5 mg/3 mL 2.5 mg (3 mL) inhalation QID #180 05/13/22 (0.083 %) solution for nebulization mL folic acid 1 mg tablet 1 mg PO DAILY #90 tabs 11/28/22 metformin 500 mg tablet See Rx Instructions .Route 11/28/22 .COMPLEX #180 tabs prednisone 20 mg tablet 40 mg PO DAILY #60 tabs 01/26/23 sulfamethoxazole 800 1 tab PO .q48 hrs #45 tabs 01/26/23 mg-trimethoprim 160 mg tablet (Bactrim DS) atorvastatin 20 mg tablet See Rx Instructions .Route 01/27/23 .COMPLEX #90 tabs oxycodone-acetaminophen 10 mg-325 1 tab PO TID PRN pain #90 tabs 05/23/23 mg tablet (Percocet) furosemide 20 mg tablet (Lasix) 20 mg PO DAILY #5 tabs 05/25/23 gabapentin 300 mg capsule 300 mg PO Q8H PRN neuropathy #90 05/25/23 caps Allergies Allergy/AdvReac Type Severity Reaction Status Date / Time No Known Allergies Allergy Verified 05/25/23 12:47 [facility] Disclaimer: The information contained in this section may have been updated after the patient was seen, as this information can be updated by other users. Medical History Asthma Asthma Dyspnea on exertion History of 2019 novel coronavirus disease (COVID-19) ILD (interstitial lung disease) Immunosuppression Pulmonary fibrosis, unspecified Rheumatoid arthritis Surgical History History of surgery on lower extremity Family History Other Diabetes Social History Smoking Status: Never smoker second hand exposure: No alcohol intake: current substance use type: denies use current occupational status: retired Travel in the last 8 weeks: None household members: other housing: house current occupation: [employer] current occupational exposures/hazards: No caffeine: Yes ROS Obtained: Yes All systems reviewed & no additional complaints except as documented Constitutional Constitutional: Denies chills and Denies fever(s) Eyes Eyes: Denies eye discharge ENT Ears, Nose, Mouth, and Throat: Denies dizziness, Denies otalgia and Denies sore throat Cardiovascular Cardiovascular: Denies chest pain, Denies dyspnea, Denies dyspnea on exertion and Reports pedal edema Respiratory Respiratory: Denies shortness of breath, Denies chest congestion, Denies cough, Denies dyspnea, Denies dyspnea on exertion, Denies stridor and Denies wheezing Gastrointestinal Gastrointestingal: Denies nausea or vomiting Musculoskeletal Musculoskeletal: Reports as per HPI and Reports arthralgias Integumentary/Breasts Skin/Breast: Denies rash Neurologic Neurologic: Denies dizziness and Denies paresthesias Allergic/Immunologic Allergic/Immunologic: Denies wheezing Physical Exam General General appearance: alert and in no apparent distress Head Head exam: atraumatic, normocephalic and normal inspection Eye Eye exam: Present normal appearance, PERRL and EOMI ENT ENT exam: Present normal exam, normal oropharynx, mucous membranes moist, TM's normal bilaterally and normal external ear exam Neck Neck exam: Present normal inspection, full ROM and trachea midline; Absent meningismus or lymphadenopathy Chest Chest inspection: Present normal inspection and symmetric chest wall rise; Absent tenderness Respiratory Respiratory exam: Present normal lung sounds bilaterally; Absent respiratory distress Cardiovascular Cardiovascular exam: Present regular rate and normal rhythm; Absent JVD Expanded Cardiovascular Exam Peripheral pulses: 2+: radial (R), radial (L), posterior tibialis (R), posterior tibialis (L), dorsalis pedis (R) and dorsalis pedis (L) Abdominal Exam Abdominal exam: Present soft and normal bowel sounds; Absent distention, tenderness or guarding Extremities Exam Extremities exam: Present normal inspection, full ROM and normal capillary refill; Absent calf tenderness Expanded Lower Extremity Exam Right: Foot/toe exam: Present swelling Left: Foot/toe exam: Present swelling Back Exam Back exam: Present normal inspection; Absent tenderness Neurological Exam Neurological exam: Present alert and oriented X3 Psychiatric Psychiatric exam: Present normal affect and normal mood Skin Skin exam: Present warm, dry, intact and normal color Lymphatic Lymphatic Findings: no adenopathy Medical Decision Making Medical Records Medical records reviewed: No I reviewed the patient's medical records. Luis Daniel Inquiry Pt receiving controlled substance: No
[2023-05-25] MEDS: KETOROLAC 60MG/2ML VIAL 60 MG IM (13:06)
[2023-05-25] MEDS: DEXAMETHASONE 4MG/ML 1ML VIAL 8 MG IM (13:06)
[2023-05-25 13:35] VITALS: BP 160/87; PULSE 104; RESP 18; TEMP 36.7; O2SAT 97
== END 2023-05-25 13:35 | disposition home or self-care (01) ==
PROVIDERS: Emergency Provider Nurse Practitioner Family; PCP Family Medicine
DX: M79.641 Pain in right hand; M79.642 Pain in left hand; M79.671 Pain in right foot; M79.672 Pain in left foot; R60.0 Localized edema; M06.9 Rheumatoid arthritis, unspecified; J84.9 Interstitial pulmonary disease, unspecified
CPT/HCPCS: 96372; 99212; 99214; G0463

== ENCOUNTER 2023-08-10 11:07 | Outpatient (CLI) | payer MEDICARE, SELFPAY ==
[2023-08-10 18:28] LABS: Basophils % 0.3 % (0.1-2.0); Eosinophils # 0.2 K/mm3 (0.0-0.4); Eosinophils % 1.4 % (0.1-12.0); Hematocrit 42.9 % (42.0-52.0); Hemoglobin 14.3 g/dL (14.1-18.0); Lymphocytes # 1.9 K/mm3 (0.7-4.5); Lymphocytes % 16.8 % (10-50); Mean Corpuscular HGB Conc 33.5 g/dL (31.8-35.4); Mean Corpuscular Hemoglobin 32.7 pg (27.0-31.2); Mean Corpuscular Volume 97.7 fl (80-94); Mean Platelet Volume 8.2 fl (7.4-10.4); Monocytes # 0.5 K/mm3 (0.1-1.0); Monocytes % 4.8 % (1.7-9.3); Neutrophils # 8.6 K/mm3 (1.8-7.8); Neutrophils % 76.7 % (37.0-80.0); Platelet Count 279 K/mm3 (142-424); Red Blood Count 4.39 M/mm3 (4.60-6.20); Red Cell Distribution Width 15.5 % (11.5-17.5); White Blood Count 11.2 K/mm3 (4.8-10.8)
[2023-08-10 18:56] LABS: Alanine Aminotransferase 38 U/L (12-78); Albumin Level 4.2 g/dl (3.5-5.0); Albumin/Globulin Ratio 1.5 (1.1-1.8); Alkaline Phosphatase 75 U/L (38-126); Anion Gap 13.9 mEq/L (5-15); Aspartate Amino Transferase 33 U/L (17-59); Bilirubin,Total 0.6 mg/dl (0.2-1.3); Blood Urea Nitrogen 14 mg/dl (9-20); Calcium 9.4 mg/dl (8.4-10.2); Carbon Dioxide 24 mmol/L (22.0-30.0); Chloride 106 mmol/L (98-107); Chol/HDL Ratio 3.9 (1-3.5); Cholesterol 141 mg/dl (140-200); Estimated Glomerular Filt Rate 134 ml/min (>60); GFR (African American) 162 ML/MIN (>60); Globulin 2.8 g/dL (1.3-3.2); Glucose 122 mg/dl (74-100); HDL Cholesterol 36 mg/dl (40-60); Potassium 3.9 mmoL/L (3.5-5.1); Sodium 140 mmol/L (136-145); Triglycerides 114 mg/dl (30-150); VLDL Cholesterol 23 mg/dL (0-40)
[2023-08-10 19:07] LABS: Direct LDL Cholesterol 76.05 mg/dL (100-129)
[2023-08-10 19:15] LABS: 25-OH Vitamin D, Total 27.4 ng/mL (30-100)
[2023-08-10 19:28] LABS: Prostate Specific Ag Screen 0.6 ng/ml (0.0-4.0)
[2023-08-10 19:47] LABS: Vitamin B12 833 pg/mL (239-931)
[2023-08-10 20:37] LABS: Hemoglobin A1C 6.3 % (4.0-6.0)
== END 2023-08-10 23:59 | disposition home or self-care (01) ==
LOC: LAB.DROPOF 08-11 11:08
PROVIDERS: PCP Family Medicine; Visit Provider Family Medicine
DX: M06.9 Rheumatoid arthritis, unspecified (principal); R60.0 Localized edema; E11.9 Type 2 diabetes mellitus without complications; E55.9 Vitamin D deficiency, unspecified; E78.5 Hyperlipidemia, unspecified; Z12.5 Encounter for screening for malignant neoplasm of prostate; Z68.34 Body mass index [BMI] 34.0-34.9, adult; Z79.84 Long term (current) use of oral hypoglycemic drugs
CPT/HCPCS: 80053; 80061; 82306; 82607; 83036; 85025; G0103

== ENCOUNTER 2023-09-14 09:50 | Outpatient (CLI) | payer MEDICARE, SELFPAY ==
[2023-09-16 11:40] LABS: Testosterone,Total 230 ng/dL (264-916)
== END 2023-09-14 23:59 | disposition home or self-care (01) ==
LOC: LAB.DROPOF 09-15 09:50
PROVIDERS: PCP Family Medicine; Visit Provider Family Medicine
DX: N52.9 Male erectile dysfunction, unspecified (principal)
CPT/HCPCS: 84403

== ENCOUNTER 2024-01-31 10:04 | Outpatient (CLI) | payer MEDICARE, SELFPAY ==
[2024-01-31 18:34] LABS: Creatinine,Urine Random 98 mg/dL (Not Estab.); Microalbumin < 6.000 mg/L (0-16.7)
== END 2024-01-31 23:59 | disposition home or self-care (01) ==
LOC: LAB.DROPOF 02-01 10:05
PROVIDERS: PCP Family Medicine; Visit Provider Family Medicine
DX: N52.9 Male erectile dysfunction, unspecified (principal); E34.9 Endocrine disorder, unspecified
CPT/HCPCS: 82043; 82570

== ENCOUNTER 2024-04-12 14:35 | Outpatient (CLI) | payer MEDICARE, SELFPAY ==
[2024-04-12 18:36] LABS: Albumin Level 3.9 g/dl (3.5-5.0); Chloride 105 mmol/L (98-107); Potassium 4.4 mmoL/L (3.5-5.1); Sodium 133 mmol/L (136-145)
[2024-04-12 18:39] LABS: Alanine Aminotransferase 52 U/L (12-78); Albumin/Globulin Ratio 1.3 (1.1-1.8); Alkaline Phosphatase 75 U/L (38-126); Anion Gap 7.4 mEq/L (5-15); Aspartate Amino Transferase 48 U/L (17-59); Bilirubin,Total 0.6 mg/dl (0.2-1.3); Blood Urea Nitrogen 15 mg/dl (9-20); Carbon Dioxide 25 mmol/L (22.0-30.0); Estimated Glomerular Filt Rate 134 ml/min (>60); GFR (African American) 162 ML/MIN (>60); Globulin 2.9 g/dL (1.3-3.2); Total Protein,Serum 6.8 g/dl (6.3-8.2)
[2024-04-12 18:40] LABS: Glucose 121 mg/dl (74-100)
[2024-04-12 18:45] LABS: C-Reactive Protein 4.1 mg/L (0-4)
[2024-04-12 18:53] LABS: Eosinophils % 0.9 % (0.1-12.0); Hemoglobin 13.3 g/dL (14.1-18.0); Mean Corpuscular Hemoglobin 33.2 pg (27.0-31.2); Mean Corpuscular Volume 94.8 fl (80-94); Mean Platelet Volume 9.3 fl (7.4-10.4); Monocytes % 7.8 % (1.7-9.3); Neutrophils % 77.3 % (37.0-80.0); Platelet Count 269 K/mm3 (142-424); Red Blood Count 4.01 M/mm3 (4.60-6.20); Red Cell Distribution Width 13.6 % (11.5-17.5); White Blood Count 9.9 K/mm3 (4.8-10.8)
[2024-04-12 18:54] LABS: Basophils % 0.4 % (0.1-2.0); Eosinophils # 0.1 K/mm3 (0.0-0.4); Lymphocytes # 1.3 K/mm3 (0.7-4.5); Monocytes # 0.8 K/mm3 (0.1-1.0); Neutrophils # 7.6 K/mm3 (1.8-7.8)
[2024-04-12 19:05] LABS: Erythrocyte Sedimentation Rate 29 mm/hr (0-20)
[2024-04-12 19:06] LABS: Hemoglobin A1C 5.9 % (4.0-6.0)
== END 2024-04-12 23:59 | disposition home or self-care (01) ==
LOC: LAB.DROPOF 04-15 12:05
PROVIDERS: PCP Family Medicine; Visit Provider Family Medicine
DX: T78.3XXA Angioneurotic edema, initial encounter (principal); J84.9 Interstitial pulmonary disease, unspecified; M05.79 Rheumatoid arthritis with rheumatoid factor of multiple sites without organ or systems involvement; E11.9 Type 2 diabetes mellitus without complications; Z79.84 Long term (current) use of oral hypoglycemic drugs; F17.200 Nicotine dependence, unspecified, uncomplicated
CPT/HCPCS: 80053; 83036; 85025; 85651; 86140

== ENCOUNTER 2024-05-13 14:10 | Outpatient (CLI) | payer MEDICARE, SELFPAY ==
[2024-05-13 18:33] LABS: Basophils % 0.3 % (0.1-2.0); Eosinophils # 0.2 K/mm3 (0.0-0.4); Hematocrit 38.9 % (42.0-52.0); Hemoglobin 13.2 g/dL (14.1-18.0); Lymphocytes % 38.1 % (10-50); Mean Corpuscular HGB Conc 33.9 g/dL (31.8-35.4); Mean Corpuscular Volume 97.3 fl (80-94); Mean Platelet Volume 9.9 fl (7.4-10.4); Monocytes # 0.8 K/mm3 (0.1-1.0); Monocytes % 10.3 % (1.7-9.3); Neutrophils # 3.9 K/mm3 (1.8-7.8); Platelet Count 198 K/mm3 (142-424); Red Cell Distribution Width 14.4 % (11.5-17.5); White Blood Count 7.9 K/mm3 (4.8-10.8)
[2024-05-13 18:54] LABS: Albumin Level 3.8 g/dl (3.5-5.0); Chloride 104 mmol/L (98-107); Potassium 3.8 mmoL/L (3.5-5.1); Sodium 134 mmol/L (136-145)
[2024-05-13 18:57] LABS: Alanine Aminotransferase 43 U/L (12-78); Albumin/Globulin Ratio 1.5 (1.1-1.8); Alkaline Phosphatase 71 U/L (38-126); Anion Gap 9.8 mEq/L (5-15); Aspartate Amino Transferase 33 U/L (17-59); Bilirubin,Total 0.3 mg/dl (0.2-1.3); Blood Urea Nitrogen 13 mg/dl (9-20); Carbon Dioxide 24 mmol/L (22.0-30.0); Estimated Glomerular Filt Rate 112 ml/min (>60); GFR (African American) 135 ML/MIN (>60); Globulin 2.6 g/dL (1.3-3.2); Total Protein,Serum 6.4 g/dl (6.3-8.2)
[2024-05-13 18:58] LABS: Calcium 8.7 mg/dl (8.4-10.2); Glucose 119 mg/dl (74-100)
== END 2024-05-13 23:59 | disposition home or self-care (01) ==
LOC: LAB.DROPOF 05-14 07:59
PROVIDERS: PCP Family Medicine; Visit Provider Family Medicine
DX: M05.749 Rheumatoid arthritis with rheumatoid factor of unspecified hand without organ or systems involvement (principal)
CPT/HCPCS: 80053; 85025

== ENCOUNTER 2024-08-12 15:04 | Outpatient (CLI) | payer MEDICARE, SELFPAY ==
[2024-08-12 20:45] LABS: Albumin Level 3.9 g/dl (3.5-5.0); Albumin/Globulin Ratio 1.2 (1.1-1.8); Alkaline Phosphatase 76 U/L (38-126); Anion Gap 13.9 mEq/L (5-15); Bilirubin,Total 0.4 mg/dl (0.2-1.3); Blood Urea Nitrogen 12 mg/dl (9-20); Calcium 8.5 mg/dl (8.4-10.2); Carbon Dioxide 22 mmol/L (22.0-30.0); Chloride 106 mmol/L (98-107); Chol/HDL Ratio 2.9 (1-3.5); Cholesterol 150 mg/dl (140-200); Estimated Glomerular Filt Rate 134 ml/min (>60); GFR (African American) 162 ML/MIN (>60); Globulin 3.2 g/dL (1.3-3.2); Glucose 255 mg/dl (74-100); HDL Cholesterol 52 mg/dl (40-60); Potassium 3.9 mmoL/L (3.5-5.1); Sodium 138 mmol/L (136-145); Total Protein,Serum 7.1 g/dl (6.3-8.2); Triglycerides 108 mg/dl (30-150); VLDL Cholesterol 22 mg/dL (0-40)
[2024-08-12 20:50] LABS: Alanine Aminotransferase 50 U/L (12-78); Aspartate Amino Transferase 32 U/L (17-59)
[2024-08-12 20:56] LABS: C-Reactive Protein 0.9 mg/L (0-4); Direct LDL Cholesterol 71.66 mg/dL (100-129)
[2024-08-12 22:43] LABS: Prostate Specific Ag Screen 0.7 ng/ml (0.0-4.0)
== END 2024-08-12 23:59 | disposition home or self-care (01) ==
LOC: LAB.DROPOF 08-13 13:16
PROVIDERS: PCP Family Medicine; Visit Provider Family Medicine
DX: M06.9 Rheumatoid arthritis, unspecified (principal)
CPT/HCPCS: 80053; 80061; 84550; 86140; G0103

== ENCOUNTER 2024-09-09 15:09 | Outpatient (CLI) | payer MEDICARE, SELFPAY ==
[2024-09-09 18:56] LABS: Basophils % 0.4 % (0.1-2.0); Eosinophils # 0.1 Kmm3 (0.0-0.4); Eosinophils % 1.2 % (0.1-12.0); Hematocrit 41.4 % (42.0-52.0); Hemoglobin 14.2 g/dL (14.1-18.0); Immature Granulocytes # 0.06 10^3uL; Immature Granulocytes % 0.6 %; Lymphocytes # 1.9 K/mm3 (0.7-4.5); Lymphocytes % 18.1 % (10-50); Mean Corpuscular HGB Conc 34.3 g/dL (31.8-35.4); Mean Corpuscular Hemoglobin 33.6 pg (27.0-31.2); Mean Corpuscular Volume 97.9 fl (80-94); Mean Platelet Volume 9.6 fl (7.4-10.4); Monocytes # 1.1 K/mm3 (0.1-1.0); Monocytes % 10.3 % (1.7-9.3); Neutrophils # 7.4 K/mm3 (1.8-7.8); Neutrophils % 69.4 % (37.0-80.0); Nucleated Red Blood Cells # 0 10^3/uL; Nucleated Red Blood Cells % 0 %; Platelet Count 237 K/mm3 (142-424); Red Blood Count 4.23 M/mm3 (4.60-6.20); Red Cell Distribution Width-SD 50.3 fL; White Blood Count 10.6 K/mm3 (4.8-10.8)
[2024-09-09 20:14] LABS: Creatinine,Urine Random 139 mg/dL (Not Estab.)
[2024-09-09 20:15] LABS: Microalbumin/Creatinine Ratio 11.6
[2024-09-09 20:37] LABS: Alanine Aminotransferase 55 U/L (12-78); Albumin Level 4.1 g/dl (3.5-5.0); Albumin/Globulin Ratio 1.6 (1.1-1.8); Alkaline Phosphatase 89 U/L (38-126); Anion Gap 11.6 mEq/L (5-15); Aspartate Amino Transferase 39 U/L (17-59); Bilirubin,Total 0.5 mg/dl (0.2-1.3); Blood Urea Nitrogen 15 mg/dl (9-20); Calcium 8.7 mg/dl (8.4-10.2); Carbon Dioxide 25 mmol/L (22.0-30.0); Chloride 101 mmol/L (98-107); Chol/HDL Ratio 4.6 (1-3.5); Cholesterol 198 mg/dl (140-200); Estimated Glomerular Filt Rate 112 ml/min (>60); GFR (African American) 135 ML/MIN (>60); Globulin 2.6 g/dL (1.3-3.2); Glucose 186 mg/dl (74-100); HDL Cholesterol 43 mg/dl (40-60); Potassium 3.6 mmoL/L (3.5-5.1); Sodium 134 mmol/L (136-145); Total Protein,Serum 6.7 g/dl (6.3-8.2); Triglycerides 144 mg/dl (30-150); VLDL Cholesterol 29 mg/dL (0-40)
[2024-09-09 20:48] LABS: Direct LDL Cholesterol 139.78 mg/dL (100-129)
[2024-09-09 20:56] LABS: Hemoglobin A1C 6.1 % (4.0-6.0)
[2024-09-09 21:13] LABS: Thyroid Stimulating Hormone 3.46 uIU/mL (0.465-4.68)
== END 2024-09-09 23:59 | disposition home or self-care (01) ==
LOC: LAB.DROPOF 21:45
PROVIDERS: PCP Family Medicine; Visit Provider Family Medicine
DX: M06.9 Rheumatoid arthritis, unspecified (principal)
CPT/HCPCS: 80053; 80061; 82043; 82570; 83036; 84443; 85025

== ENCOUNTER 2024-10-29 20:05 | Emergency (ER) | payer MEDICARE, SELFPAY ==
[2024-10-29] VITALS (7 sets, daily range): BP systolic 125–132; BP diastolic 68–91; PULSE 83–95; RESP 16–22; TEMP 36.6–36.9; O2SAT 95–97; BMI 34.2
[2024-10-29 20:23] LABS: Microscopic, Urine URINE MICROSCOPIC (MICROSCOPIC)
--- OUTSIDE RECORDS SUMMARY | 2024-10-29 20:23 | XMS_ITS | Encounter Summary ---
Author Organization [facility] Address [address] [id number] Care Team Providers Care Ambulatory Analyst Name Role Phone Paolo Colunga MD Primary Care Provider [phone] Encounter Details Date Type Department Care Team (Late st Contact Info) Description 12/22/2023 [facility] [address] [place] [address] Paolo Colunga MD [address] [place] [address] Social History Tobacco Use Types Packs/Day Years Used Date Smoking Tobacco: Never Smokeless Tobacco: Current Snuff PHQ-2 Answer Date Recorded Patient Health Questionnaire-2 Score 0 06/22/2022 PHQ-2A Answer Date Recorded Depression Risk 0 06/22/2022 Sex and Gender Information Value Date Recorded Sex Assigned at Male 02/15/2022 10:22 AM EDT Legal Sex Male 6:46 PM EDT Gender Identity Male 02/15/2022 10:22 AM EDT Sexual Orientation Not on file documented as of this encounter Plan of Treatment Not on file documented as of this encounter Visit Diagnoses Not on filedocumented in this encounter Additional Health Concerns Assessment Noted Time A fall risk assessment has been complete d for the patient 06/22/2022 1:33 PM EST A Body Mass Index follow-up plan has been documented for the patient 06/22/2022 1:54 PM EST documented as of this encounter Care Teams Ambulatory Analyst Relationship Specialty Start Date End Date Paolo Colunga MD PCP - General 08/02/21 documented as of this encounter
--- OUTSIDE RECORDS SUMMARY | 2024-10-29 20:23 | XMS_ITS | Encounter Summary ---
Author Organization [facility] Address [address] [place] [address] Care Team Providers Care Furniture Builder Name Role Phone Paolo Colunga MD Primary Care Provider [phone] Reason for Referral * Consultation (Routine) - Closed Specialty Diagnoses / Procedures Referred By Contac t Referred To Contact Rheumatology Diagnoses Elevated rheumatoid factor Elevated sed rate Elevated C-reactive protein (CRP) Paolo Colunga MD Phone: tel: fax: Referral ID Status Reason Start Date Expiration Date V isits Requested Visits Authorized [id number] Closed Specialty Services Required 08/02/2021 02/01/2023 1 1 Encounter Details Date Type Department Care Team (Late st Contact Info) Description 08/02/2021 [facility] [address] [place] [address] Paolo Colunga MD [facility] [place] [address] Elevated rheumatoid factor (Primary Dx); Elevated sed rate; Elevated C-reactive protein (CRP) Social History Tobacco Use Types Packs/Day Years Used Date Smoking Tobacco: Never Assessed Sex and Gender Information Value Date Recorded Sex Assigned at Male 02/15/2022 10:22 AM EDT Legal Sex Male 6:46 PM EDT Gender Identity Male 02/15/2022 10:22 AM EDT Sexual Orientation Not on file documented as of this encounter Plan of Treatment Scheduled Referrals Name Type Priority Associated Diagnoses Order Schedule Ambulatory referral to Rheumatology Outpatient Referral Routine Elevated rheumatoid factor Elevated sed rate Elevated C-reactive protein (CRP) 1 Occurrences starting 08/02/2021 until 11/01/2021 documented as of this encounter Visit Diagnoses Diagnosis Elevated rheumatoid factor- Primary Other and unspecified nonspecific immunological findings Elevated sed rate Elevated sedimentation rate Elevated C-reactive protein (CRP) documented in this encounter Care Teams Furniture Builder Relationship Specialty Start Date End Date Paolo Colunga MD PCP - General 08/02/21 documented as of this encounter
--- OUTSIDE RECORDS SUMMARY | 2024-10-29 20:23 | XMS_ITS | Clinical Summary ---
Author Organization [facility] Address [address] [place] [address] Care Team Providers Care [employer] Certified Internetwork Expert Name Role Phone Paolo Colunga MD Primary Care Provider [phone] Allergies No known active allergies Medications atorvastatin (Lipitor) 20 MG tablet 2 Active gabapentin (Neurontin) 300 MG capsule 2 Active metFORMIN (Glucophage) 500 MG tablet 2 Active clonazePAM (KlonoPIN) 2 MG tablet 2 Active levoFLOXacin (Levaquin) 500 MG tablet 2 Active zolpidem (Ambien) 10 MG tablet 2 Active predniSONE (Deltasone) 10 MG tablet Take 1-3 tabs as needed for breakthrough pain 60 tablet 2 2 Active Additional Information Patient not taking.Reported on 06/22/2022 oxyCODONE-aceta minophen (Percocet) 7.5-325 MG tablet Take 1 tablet by mouth 3 (three) times a day. 3 Active albuterol 108 (90 Base) MCG/ACT inhaler Inhale 2 puffs 1 (one) time each day if needed. 3 Active Adalimumab (Humira Pen) 40 MG/0.4ML Pen-injector KitIndications: Seropositive rheumatoid arthritis of multiple sites (CMS/HCC) Inject 40 mg under the skin 1 (one) time per week. 12 each 2 3 Active Immunizations Immunization Administration Dates Next Due Influenza, injectable, quadrivalent 03/22/2017 Influenza, seasonal, injectable, preservative fr ee 2012 Pneumococcal Polysaccharide PPV23 04/07/2020, Tdap 03/26/2013,2012 Family History Medical History Relation Name Comments Depression Brothjethro palomino Diabetes Father Chris palomino sr. Hearing loss Father Chris palomino sr. Heart disease Father Chris palomino sr. Obesity Father Chrsi palomino sr. Mental illness Maternal Grandmother Violet Palomino Relation Name Status Comments Brothjethro palomino Father Chris palomino sr. Maternal Grandmother Violet Palomino Social History Tobacco Use Types Packs/Day Years Used Date Smoking Tobacco: Never Smokeless Tobacco: Current Snuff Tobacco Cessation:Ready to Q uit: Not Asked; Counseling Given: Not Answered PHQ-2 Answer Date Recorded Patient Health Questionnaire-2 Score 0 06/22/2022 PHQ-2A Answer Date Recorded Depression Risk 0 06/22/2022 Sex and Gender Information Value Date Recorded Sex Assigned at Male 02/15/2022 10:22 AM EDT Legal Sex Male 6:46 PM EDT Gender Identity Male 02/15/2022 10:22 AM EDT Sexual Orientation Not on file Last Filed Vital Signs Vital Sign Reading Time Taken Comments Blood Pressure 136/83 06/22/2022 1:29 PM EST Pulse 84 06/22/2022 1:29 PM EST Temperature 36.6 C (97.9 F) 06/22/2022 1:29 PM EST Respiratory Rate - - Oxygen Saturation 95% 06/22/2022 1:29 PM EST Inhaled Oxygen Concentration - - Weight 124 kg (273 lb 2.4 oz) 06/22/2022 1:29 PM EST Height 185.4 cm (6' 1 ) 06/22/2022 1:29 PM EST Body Mass Index 36.04 06/22/2022 1:29 PM EST Plan of Treatment Health Maintenance Due Date Last Done Comments [facility]Med[facility] Annual Wellness (AWV) 1955 Y-Infant/Child/Adol SDOH Screenings 1955 [id number] Vaccine (#1) 02/08/1960 [facility]- SDOH Screenings 1973 [facility]-Adult SDOH Screenings 1973 [facility]-Zoster Vaccines (1 of 2) 1974 CT Colonography 02/08/2000 Colonoscopy 02/08/2000 FIT-DNA 02/08/2000 FIT 02/08/2000 FOBT 02/08/2000 Sigmoidoscopy 02/08/2000 [facility]-Colorectal Cancer Screening 02/08/2000 [facility]-RSV Vaccine: 60+ Years o r (1 - Risk 60-74 years 1-dose series) 2015 [facility]-Pneumococcal Vaccine: 50 + Years (2 of 2 - PCV) 04/07/2021 04/07/2020, 03/22/2017 [facility]-DTaP,Tdap,and Td Vaccine s (3 - Td or Tdap) 03/26/2023 03/26/2013, 2012 [facility]-Depression Screening 06/23/2023 023, 06/22/2022 [facility]-Influenza Vaccine (#1) 12/23/202403/22, 2012 [facility]-Hepatitis C Screening Completed 09/14/2021 [facility]-Obesity Intervention Completed 023, 02/22/2022 HPV Vaccines Aged Out No longer eligi ble based on patient's age to complete this topic [facility]-HIB Vaccines Aged Out No longer e ligible based on patient's age to complete this topic [facility]-Hepatitis A Vaccines Aged Out No longer eligible based on patient's age to complete this topic [facility]-IPV Vaccines Aged Out No longer e ligible based on patient's age to complete this topic [facility]-Rotavirus Vaccines Aged Out No lo nger eligible based on patient's age to complete this topic Procedures Procedure Name Priority Date/Time Associated Diagnosis Comments ACUTE HEPATITIS PANEL Routine 09/14/2021 1:31 PM EDT Polyarthralgia Rheumatoid factor positive from Last 3 Months or Most Recently Relevant to Health Maintenance Results * Acute Hepatitis Panel (09/14/2021 1:31 PM EDT) Hepatitis B Surf Antigen Negative Negative 09/14/2021 3:39 PM EDT [facility] Hepatitis C Antibody Negative Negative 09/14/2021 3:39 PM EDT [facility] Hepatitis A Antibody IgM Negative Negative 09/14/2021 3:39 PM EDT [facility] Hepatitis B Core Antibody IgM Negative Negative 09/14/2021 3:39 PM EDT [facility] Blood Venous blood specimen / Unknown Venipuncture / Unknown 09/14/2021 1:31 PM EDT 09/14/2021 1:31 PM EDT us Marilynn Segundo Hernandez [facility]LOOD ORDER[facility] Imelda taveras [facility] [address] [place] [address] from Last 3 Months or Most Recently Relevant to Health Maintenance Insurance [employer] Care Teams [employer] Certified Internetwork Expert Relationship Specialty Start Date End Date Paolo Colunga MD PCP - General 08/02/21
--- OUTSIDE RECORDS SUMMARY | 2024-10-29 20:23 | XMS_ITS | Clinical Summary ---
Author Organization [facility] Address [address] [place] [address] Phone Care Team Providers Care Adult Care Manager Name Role Phone Kimberly Andrews MD Primary Care Provider [phone] Allergies No known active allergies Medications omeprazole (PRILOSEC) 10 mg Oral Capsule, Delayed Release(E.C.) Take 10 mg by mouth daily. Active pantoprazole (PROTONIX) 20 mg Oral Tablet, Delayed Release (E.C.) Take by mouth daily. Active albuterol (PROVENTIL) 2.5 mg /3 mL (0.083 %) Inhl Solution for Nebulization Take 2.5 mg by nebulization every 6 hours as needed for Wheezing. Active metFORMIN (GLUCOPHAGE) 500 mg Oral Tablet Take 500 mg by mouth 2 times daily. Active sulfaSALAzine (AZULFIDINE) 500 mg Oral Tablet Take by mouth every 6 hours. Active gabapentin (NEURONTIN) 300 mg Oral Capsule Take 300 mg by mouth 3 times daily. Active zolpidem (AMBIEN) 10 mg Oral Tablet Take 10 mg by mouth nightly. Active predniSONE (DELTASONE) 5 mg Oral Tablet Take 5 mg by mouth 2 times daily. Active atorvastatin (LIPITOR) 20 mg Oral Tablet Take 20 mg by mouth daily. Active folic acid (FOLVITE) 1 mg Oral Tablet Take by mouth daily. Active oxyCODONE 10 mg Oral Tablet Take 10 mg by mouth every 6 hours. Active Active Problems Problem Noted Date Diagnosed Date Seropositive rheumatoid arthritis of multiple si nisa 01/23/2023 Encounters Date Type Department Care Team Description 08/26/2024 4:15 PM EDT Office Visit [facility] [address] [place] [address] Ryan Lockett MD Cough, unspecified type (Primary Dx); SOB (shortness of breath); UIP (usual interstitial pneumonitis) ([facility]); Seropositive rheumatoid arthritis of multiple sites ([facility]) 08/26/2024 Travel from Last 3 Months Surgical History Surgery Date Site/Laterality Comments ELBOW SURGERY right elbow surgery due to work injury-elbow was crushed. FINGER SURGERY left index finger surgery due to blood poisoning. CHOLECYSTECTOMY 2018 polyp Medical History Medical History Date Comments Arthritis Bipolar 1 disorder ([facility]) bipolar manic depressive. LA (myocardial infarction) ([facility]) patient denied any heart attack at time of database call but told Jahaira Boateng he had mild heart attack 6 years ago at time of her phone call. Family History Medical History Relation Name Comments Cancer Father da palomino Sr. lung canc er Diabetes Father da palomino Sr. Heart Disease Father da palomino Sr. Asthma Mother Sheryl Relation Name Status Comments Father da palomino Sr. Mother Sheryl Alive Social History Tobacco Use Types Packs/Day Years Used Date Smoking Tobacco: Never Smokeless Tobacco: Current Chew Tobacco Cessation:Ready to Q uit: Not Asked; Counseling Given: Not Answered Comments:refused counseling. Alcohol Use Standard Drinks/Week Comments Yes 0 (1 standard drink = 0.6 oz pure alcohol) rarely.1 bottle bourbon per year. Sex and Gender Information Value Date Recorded Sex Assigned at Not on file Legal Sex Male 2:10 PM EDT Gender Identity Not on file Sexual Orientation Not on file Obstetrics History Last Filed Vital Signs Vital Sign Reading Time Taken Comments Blood Pressure 138/88 08/26/2024 4:19 PM EDT Pulse 76 08/26/2024 4:19 PM EDT Temperature 36.2 C (97.2 F) 03/07/2023 3:59 PM EST Respiratory Rate 18 03/07/2023 3:59 PM EST Oxygen Saturation 95% 08/26/2024 4:19 PM EDT Inhaled Oxygen Concentration - - Weight 122.5 kg (270 lb) 08/26/2024 4:19 PM EDT Height 188 cm (6' 2 ) 08/26/2024 4:19 PM EDT Body Mass Index 34.67 08/26/2024 4:19 PM EDT Plan of Treatment Upcoming Encounters Date Type Department Care Team (Late st Contact Info) Description 02/26/2025 12:00 PM EST Appointment [facility] [address] [place] [address] Ryan Lockett MD [address] [phone] 02/26/2025 1:00 PM EST Appointment [facility] [address] [place] [address] Ryan Lockett MD [address] [phone] 02/28/2025 1:00 PM EST Office Visit [facility] [address] [phone] Ryan Lockett MD [address] [phone] Health Maintenance Due Date Last Done Comments Wellness Exam Medicare 1958 Hepatitis C Screening 1973 Cologuard 02/08/2000 Colon Cancer Screening 02/08/2000 Colonoscopy 02/08/2000 FIT 02/08/2000 Sigmoidoscopy 02/08/2000 Virtual Colonography 02/08/2000 Zoster (1 of 2) 2005 RSV or 60+ (1 - Ris k 60-74 years 1-dose series) 2015 DTaP/TDaP/Td (3 - Td or Tdap) 03/26/2023, 2012 COVID-19 Vaccine (1 - 2023-2 5 season) 2023 Influenza Vaccine (#1) 2024 7, 2012 Pneumococcal Vaccine 50+ Completed 024, 04/07/2020, 03/22/2017 Hepatitis B Vaccine Aged Out No longe r eligible based on patient's age to complete this topic Meningococcal B Vaccine Aged Out No l onger eligible based on patient's age to complete this topic Insurance AALIYAH KRUSE MR AALIYAH KRUSE MR Care Teams Adult Care Manager Relationship Specialty Start Date End Date Kimberly Andrews MD [address] [place] [address] PCP - General Family Medicine 08/29/11
[2024-10-29 20:24] LABS: Bilirubin,Urine Negative (Negative); Color,Urine YELLOW (Yellow); Glucose,Urine (UA) Negative (Negative); Ketones,Urine Negative (Negative); Leukocyte Esterase,Urine Negative (Negative); PH,Urine 6.0 (5.0-8.5); Protein,Urine Negative (Negative); Specific Gravity, Urine 1.010 (1.005-1.030); Urobilinogen,Urine 0.2 EU/dl (0.2)
[2024-10-29 20:47] LABS: Amorphous Sediment,Urine 1+ /lpf; Bacteria,Urine Trace /lpf; RBC,Urine Occasional #/hpf (0-3); WBC,Urine Occasional #/hpf (0-3)
[2024-10-29] MEDS: METHOCARBAMOL 500MG TABLET 500 MG PO (20:55)
[2024-10-29] MEDS: MORPHINE 4MG/ML SYRINGE 4 MG IV (20:55)
[2024-10-29] MEDS: KETOROLAC 30MG/ML VIAL 15 MG IV (20:55)
[2024-10-29 21:11] LABS: Hematocrit 39.6 % (42.0-52.0); Hemoglobin 13.1 g/dL (14.1-18.0); Immature Granulocytes % 0.8 %; Mean Corpuscular HGB Conc 33.1 g/dL (31.8-35.4); Mean Corpuscular Hemoglobin 32.0 pg (27.0-31.2); Mean Corpuscular Volume 96.8 fl (80-94); Nucleated Red Blood Cells % 0 %; Platelet Count 237 K/mm3 (142-424); Red Blood Count 4.09 M/mm3 (4.60-6.20); Red Cell Distribution Width-SD 50.9 fL; White Blood Count 12.9 K/mm3 (4.8-10.8)
--- NOTE | 2024-10-29 21:11 | HMH.EDGENADL ---
Discharge Plan Disposition Patient Disposition: Home, Self-Care Condition: Good Prescriptions Prescriptions: New oxycodone 5 mg tablet 5 mg PO Q8H PRN (Reason: pain) Qty: 5 0RF methocarbamol 500 mg tablet 500 mg PO Q8H PRN (Reason: pain) Qty: 10 0RF No Action atorvastatin 20 mg tablet See Rx Instructions .ROUTE .COMPLEX Qty: 90 3RF Dose Instruction: TAKE 1 TABLET BY MOUTH ONCE A DAY Rx Instructions: TAKE 1 TABLET BY MOUTH ONCE A DAY methotrexate sodium 25 mg/mL solution PO prednisone 5 mg tablet PO Patient Comments: TAKE 1 TABLET BY MOUTH ONCE DAILY DIRECTED IN OFFICE. TAKE WITH FOOD. NO NSAID USE. omeprazole 40 mg capsule,delayed release(DR/EC) PO Patient Comments: TAKE 1 CAPSULE BY MOUTH ONCE DAILY. sulfasalazine 500 mg tablet PO Patient Comments: TAKE 2 TABLETS BY MOUTH TWICE DAILY pantoprazole [Protonix] 40 mg tablet,delayed release (DR/EC) 40 mg PO BID Qty: 180 3RF zolpidem [Ambien] 10 mg tablet 10 mg PO HS Qty: 30 3RF famotidine [Pepcid] 20 mg tablet 20 mg PO BID Qty: 180 3RF folic acid 1 mg tablet 1 mg PO DAILY Qty: 90 3RF oxycodone-acetaminophen [Percocet] 10-325 mg tablet 1 tab PO Q6H PRN (Reason: pain) Qty: 120 0RF Rx Instructions: for severe pain assoc w/rheumatoid gabapentin 300 mg capsule 300 mg PO Q8H PRN (Reason: neuropathy) Qty: 90 3RF metformin 500 mg tablet See Rx Instructions .ROUTE .COMPLEX Qty: 180 3RF Dose Instruction: TAKE 1 TABLET BY MOUTH 2 TIMES DAILY FOR DIABETES. Rx Instructions: TAKE 1 TABLET BY MOUTH 2 TIMES DAILY FOR DIABETES. Referrals Follow up/Referrals: Paolo Colunga MD [Primary Care Provider, Family Practice] - See instructions Activity Restrictions/Add. Instructions Additional Instructions/Restrictions: You were evaluated in the emergency department today. Please use caution when taking the extra pain medications provided to you, as they can be sedating and can cause dizziness and balance issues especially when taken in addition to your chronic home pain medication. Follow-up closely with your primary care provider as well as your umbrella mender. Return to the emergency department for new or worsening symptoms. Clinical Impressions Clinical Impression: Flare of rheumatoid arthritis Instructions Patient Instructions: Rheumatoid Arthritis, DI for Chronic Pain -- Adult, DI for Acute Pain -- Adult Print Language Print Language: Indonesian Discharge ED Provider: Peri Jarrett General Adult HPI General Chief complaint: PAIN Stated complaint: arthritis all over painful and swollen Time Seen by Provider: 10/29/24 20:17 Mode of Arrival: Ambulatory Source of Information: Patient Description of Symptoms (Recalled from ER Triage Doc. by RN): Pt present with overall body pain from his RA which flared 2 weeks ago. Pt is on daily medications,is a pt of Dr Vega, informed him they were not helping and he advised him to come to hospital. History of Present Illness HPI narrative: This patient is a 69-year-old male with a history of rheumatoid arthritis and interstitial lung disease presenting to the emergency department for evaluation with concern for RA flare. Patient states that he is been dealing with a flare for several weeks now and has been persistent. He notes that the pain has been getting worse and nothing has been coming down. He states he is on prednisone, methotrexate, Percocet, and other medications to control his pain and symptoms but they are not helping. He saw his primary care provider for this 10/09/2024 at which point meds were refilled. He notes that he has an appointment scheduled 10/31/2024 with rheumatology at [facility] where he goes, but he was miserable today prompting ED evaluation. He states that all of his joints hurt, including his feet, his ankles, his knees, his hands. He also notes swelling all over his joints, especially down in his legs and feet. He states the swelling is a little bit better compared to last week but the pain is still there. He states he is not able to sleep secondary to pain. He notes that his symptoms were previously well-controlled on rinvoq but insurance stopped covering this. He has no fevers, chills, chest pain, shortness of breath, abdominal pain, or other concerns Related Data Home Medications ?Medication ?Instructions ?Recorded ?Confirmed methotrexate sodium 25 mg/mL mg PO 07/10/23 10/09/24 injection solution omeprazole 40 mg capsule,delayed mg PO 01/31/24 10/09/24 release prednisone 5 mg tablet mg PO 01/31/24 10/09/24 sulfasalazine 500 mg tablet PO 05/13/24 10/09/24 Previous Rx's ?Medication ?Instructions ?Recorded gabapentin 300 mg capsule 300 mg PO Q8H PRN neuropathy #90 07/10/24 caps pantoprazole 40 mg tablet,delayed 40 mg PO BID #180 tabs 07/10/24 release (Protonix) zolpidem 10 mg tablet (Ambien) 10 mg PO HS #30 tabs 07/10/24 atorvastatin 20 mg tablet See Rx Instructions .Route 08/12/24 .COMPLEX #90 tabs metformin 500 mg tablet See Rx Instructions .Route 09/18/24 .COMPLEX #180 tabs famotidine 20 mg tablet (Pepcid) 20 mg PO BID #180 tabs 10/09/24 folic acid 1 mg tablet 1 mg PO DAILY #90 tabs 10/09/24 oxycodone-acetaminophen 10 mg-325 1 tab PO Q6H PRN pain #120 tabs 10/09/24 mg tablet (Percocet) methocarbamol 500 mg tablet 500 mg PO Q8H PRN pain #10 tabs 10/29/24 oxycodone 5 mg tablet 5 mg PO Q8H PRN pain #5 tabs 10/29/24 Allergies Allergy/AdvReac Type Severity Reaction Status Date / Time No Known Allergies Allergy Verified 10/09/24 13:01 [facility] Disclaimer: The information contained in this section may have been updated after the patient was seen, as this information can be updated by other users. Medical History Immunosuppression Asthma ILD (interstitial lung disease) Dyspnea on exertion Pulmonary fibrosis, unspecified Rheumatoid arthritis History of 2019 novel coronavirus disease (COVID-19) Asthma Surgical History History of surgery on lower extremity Family History Other Diabetes Social History Smoking Status: Never smoker second hand exposure: No alcohol intake: current alcohol intake frequency: holidays/special occasions only substance use type: denies use current occupational status: retired Travel in the last 8 weeks?: None household members: other housing: house current occupation: [employer] current occupational exposures/hazards: No caffeine: Yes Have you lived/traveled outside US in past 30 days?: No Contact w/someone who lives/traveled outside US past 30 days?: No Exposure to someone with infectious disease in past 14 days?: No Do you have a fever (greater than 100.4 F or 38 C)?: No Have you tested positive for COVID-19?: No Exposed to someone with COVID-19 in past 14 days?: No Do you have a sore throat?: No Do you have a cough?: No Do you have any weakness?: No Do you have any diarrhea?: No Are you experiencing any unusual bleeding?: No Do you have any muscle aches/pain?: Yes Do you have any abdominal pain?: No Are you experiencing loss of taste or smell?: No Other Medical History Have you received the Flu Vaccine for this season: No Have you received the Pneumonia Vaccine: Yes ROS Obtained: Yes All systems reviewed & no additional complaints except as documented Physical Exam General General appearance: alert and in no apparent distress Head Head exam: atraumatic and normocephalic Eye Eye exam: Present normal appearance, PERRL and EOMI ENT ENT exam: Present normal exam, normal oropharynx, mucous membranes moist and normal external ear exam Neck Neck exam: Present normal inspection, full ROM and trachea midline; Absent tenderness Chest Chest inspection: Present normal inspection and symmetric chest wall rise; Absent tenderness Respiratory Respiratory exam: Present normal lung sounds bilaterally; Absent respiratory distress, wheezes, stridor or accessory muscle use Cardiovascular Cardiovascular exam: Present regular rate and normal rhythm Abdominal Exam Abdominal exam: Present soft; Absent distention, tenderness or guarding Extremities Exam Extremities exam: Present normal capillary refill, edema and other (symmetric joint swelling to feet, ankles, hands, wrists, knees. No redness or warmth. symmetric BLE pitting edema); Absent tenderness Back Exam Back exam: Present normal inspection and full ROM; Absent tenderness Neurological Exam Neurological exam: Present alert, oriented X3, CN II-XII intact and normal gait; Absent motor sensory deficit Psychiatric Psychiatric exam: Present normal affect and normal mood Skin Skin exam: Present warm and dry Medical Decision Making Medical Records Medical records reviewed: Yes I reviewed the patient's medical records. Screening: Per USPSTF and CDC recommendations, given the prevalence of disease in our region, it is our hospital?s policy to screen for HIV and viral Hepatitis for all patients aged 18 and over and those with ongoing risk factors. Luis Daniel Inquiry Pt receiving controlled substance: Yes Luis Daniel was queried for this patient: Yes Risks and benefits of using a controlled substance: were discussed with pt by me Vital Signs: 10/29/24 20:26 10/29/24 20:30 10/29/24 20:45 Temperature 98.4 F Temperature Source Oral Pulse Rate 88 89 Pulse Rate [Left] 95 H Respiratory Rate 22 Blood Pressure 129/72 130/78 Blood Pressure [Right Arm] 130/79 Blood Pressure Mean [Right Arm] 96 Blood Pressure Source Blood Pressure Source [Right Arm] Automatic Cuff Blood Pressure Position Blood Pressure Position [Right Arm] Sitting 02 Sat by Pulse Oximetry 97 95 95 Oxygen Delivery Method Room Air 10/29/24 21:01 10/29/24 21:15 10/29/24 21:30 Temperature Temperature Source Pulse Rate 90 88 86 Pulse Rate [Left] Respiratory Rate Blood Pressure 125/68 125/71 132/77 Blood Pressure [Right Arm] Blood Pressure Mean [Right Arm] Blood Pressure Source Blood Pressure Source [Right Arm] Blood Pressure Position Blood Pressure Position [Right Arm] 02 Sat by Pulse Oximetry 96 95 95 Oxygen Delivery Method 10/29/24 22:09 Temperature 98 F Temperature Source Oral Pulse Rate 83 Pulse Rate [Left] Respiratory Rate 16 Blood Pressure 125/91 H Blood Pressure [Right Arm] Blood Pressure Mean [Right Arm] Blood Pressure Source Automatic Cuff Blood Pressure Source [Right Arm] Blood Pressure Position Sitting Blood Pressure Position [Right Arm] 02 Sat by Pulse Oximetry Oxygen Delivery Method Room Air Lab Data Lab results reviewed: Yes I reviewed the patient's lab results. Lab Results 10/29/24 20:17: Urine Color Yellow, Urine Appearance Clear, Urine pH 6.0, Ur Specific [place] 1.010, Urine Protein Negative, Urine Glucose (UA) Negative, Urine Ketones Negative, Urine Blood Negative, Urine Nitrate Negative, Urine Bilirubin Negative, Urine Urobilinogen 0.2, Ur Leukocyte Esterase Negative, Urine RBC Occasional, Urine WBC Occasional, Amorphous Sediment 1+, Urine Bacteria Trace 10/29/24 21:00: WBC 12.9 H, RBC 4.09 L, Hgb 13.1 L, Hct 39.6 L, MCV 96.8 H, MCH 32.0 H, MCHC 33.1, RDW 14.5, Plt Count 237, MPV 9.2, Neut % (Auto) 89.5 H, Lymph % (Auto) 4.8 L, [place] % (Auto) 4.4, Eos % (Auto) 0.3, Baso % (Auto) 0.2, Neut # (Auto) 11.5 H, Lymph # (Auto) 0.6 L, [place] # (Auto) 0.6, Eos # (Auto) 0.0, Baso # (Auto) 0.0, Sodium 134 L, Potassium 4.7, Chloride 97 L, Carbon Dioxide 22, Anion Gap 19.7 H, BUN 18, Creatinine 0.60 L, Estimated Creat Clear 116, Estimated GFR 134, Est GFR ( Amer) 162, Glucose 196 H, Calcium 9.4, Magnesium 1.8, Total Bilirubin 0.6, AST 41, ALT 43, Alkaline Phosphatase 66, NT-Pro-B Natriuret Pep 66.4, Total Protein 8.0, Albumin 4.6, Globulin 3.4 H, Albumin/Globulin Ratio 1.4, TSH 2.12, Thyroxine (T4) 11.0, HCV Ab PADMINI w/Rflx PCR Qn Negative, HIV Ag/Ab Combo Qual Negative 10/29/24 21:00 10/29/24 21:00 Orders (Tests/Meds): ED MEDICATIONS Discontinued Medications Generic Name Dose Route Start Last Admin Trade Name Freq PRN Reason Stop Dose Admin Ketorolac Tromethamine 15 mg 10/29/24 20:45 10/29/24 20:55 Ketorolac 30mg/Ml Vial IV 10/29/24 20:46 15 mg ONCE ONE Administration Methocarbamol 500 mg 10/29/24 20:46 10/29/24 20:55 Methocarbamol 500mg Tablet PO 10/29/24 20:47 500 mg ONCE ONE Administration Morphine Sulfate 4 mg 10/29/24 20:45 10/29/24 20:55 Morphine 4mg/Ml Syringe IV 10/29/24 20:46 4 mg ONCE ONE Administration ORDERS Category Date Time Status BNP [NT Pro Brain Natriuretic Pep.] Stat Lab 10/29/24 21:00 Completed Complete Blood Count Auto Diff Stat Lab 10/29/24 21:00 Completed Comprehensive Metabolic Panel Stat Lab 10/29/24 21:00 Completed HIV Combo Routine Lab 10/29/24 21:00 Completed Hepatitis C Ab Qual. W/ RFX Routine Lab 10/29/24 21:00 Completed MAG [Magnesium] Stat Lab 10/29/24 21:00 Completed T4 (Thyroxine) Stat Lab 10/29/24 21:00 Completed TSH [Thyroid Stimulating Hormone] Stat Lab 10/29/24 21:00 Completed UA [Urinalysis and Microscopic] Stat Lab 10/29/24 20:17 Completed Medical Decision Narrative: In summary, this patient is a 69-year-old male presenting to the Emergency Department for evaluation of concern for rheumatoid arthritis flare with significant joint swelling and bilateral leg swelling. Differential diagnoses considered include but are not limited to rheumatoid arthritis flare, CHF, dependent edema, venous insufficiency, NURIS. Ruling out the most morbid conditions drove assessment. It should be noted patient's history includes rheumatoid arthritis and interstitial lung disease which are not at goal therapy. This complicates all aspects of care by increasing patient's risk for morbidity. I reviewed patient's past medical records and noted PCP evaluation 10/09/2024 for flareup of RA. On exam, the patient is sitting upright in no acute distress. He has no chest pain, shortness of breath, or systemic symptoms. Vitals are normal and cardiac telemetry. He does have joint swelling as well as symmetric lower extremity edema. Workup included CBC, CMP, TSH, T4, BNP. He was given IV morphine, oral Robaxin, IV Toradol for symptomatic improvement. On reassessment, the patient is resting comfortably and states he is feeling a lot better. Labs obtained are reassuring with my leukocytosis in the setting of steroid use. Nothing actionable. Chemistry has mildly elevated anion gap, which is nonspecific. Nothing else acute, normal blood glucose. Ultimately, I feel he is appropriate for discharge as he has follow-up arranged in 2 days. I did elect to prescribe a brief course of oxycodone as well as Robaxin to add in addition to his home medications given his intractable pain pending his evaluation in 2 days. He was given strict return precautions Critical Care Critical Care Time Critical Care Time: No
[2024-10-29 21:17] LABS: Alanine Aminotransferase 43 U/L (12-78); Albumin Level 4.6 g/dl (3.5-5.0); Albumin/Globulin Ratio 1.4 (1.1-1.8); Alkaline Phosphatase 66 U/L (38-126); Anion Gap 19.7 mEq/L (5-15); Aspartate Amino Transferase 41 U/L (17-59); Bilirubin,Total 0.6 mg/dl (0.2-1.3); Blood Urea Nitrogen 18 mg/dl (9-20); Calcium 9.4 mg/dl (8.4-10.2); Carbon Dioxide 22 mmol/L (22.0-30.0); Chloride 97 mmol/L (98-107); Creatinine Clearance Estimated 116 mL/min (50-200); Creatinine,Serum 0.60 mg/dl (0.66-1.25); Estimated Glomerular Filt Rate 134 ml/min (>60); GFR (African American) 162 ML/MIN (>60); Globulin 3.4 g/dL (1.3-3.2); Glucose 196 mg/dl (74-100); Magnesium 1.8 mg/dl (1.6-2.3); Potassium 4.7 mmoL/L (3.5-5.1); Sodium 134 mmol/L (136-145); Total Protein,Serum 8.0 g/dl (6.3-8.2)
[2024-10-29 21:26] LABS: NT Pro Brain Natriuretic Pep. 66.4 pg/mL (0-125)
[2024-10-29 21:34] LABS: T4 (Thyroxine) 11.0 ug/dl (5.53-11.0)
[2024-10-29 21:47] LABS: Thyroid Stimulating Hormone 2.12 uIU/mL (0.465-4.68)
[2024-10-29 22:37] LABS: Hepatitis C Ab Qual. W/ RFX NEGATIVE (Negative)
== END 2024-10-29 22:10 | disposition home or self-care (01) ==
PROVIDERS: Emergency Provider Emergency Medicine; PCP Family Medicine
DX: M06.9 Rheumatoid arthritis, unspecified (principal)
CPT/HCPCS: 80053; 81001; 83735; 83880; 84436; 84443; 85025; 86803; 87389; 96374; 96375; 99284; J1885; J2270

== ENCOUNTER 2024-11-05 12:36 | Outpatient (CLI) | payer MEDICARE, SELFPAY ==
--- NOTE | 2024-11-05 | CA_ITS ---
APPROVED REPORT EXAM: Comprehensive 2D, Doppler, and color-flow Echocardiogram Pattern Worker: Malina Dewitt RT(R) Ht: 6 ft 1 in Wt: 264lbs BSA: 2.42 BP: 125/91 mmHg Indications: edema, pulmonary HTN, rhumatoid arthritis, pulmonary fibrosis 2D Dimensions LA Volume 34.60 mL LA Volume Index 14.30 mL/m2 (M/F) 16-34 M-Mode Dimensions RVDd 3.25 cm (0.9-2.6) LA Diam 3.41 cm (1.9-4.0) LVDd 4.82 cm (3.5-5.7) LVDs 3.57 cm (3.5-5.7) IVSd 0.94 cm (0.6-1.1) PWd 0.94 cm (0.6-1.1) EF (Teich) 50.90% FS 25.90% EDV (Teich) 108.60 mL ESV (Teich) 53.30 mL LV Diastology E Decel Time 180 (160-240 msec) E/A Ratio 1.3 Mitral Valve MV E Max Omar. 86.0 (40-130 cm/s) MV A Velocity 68.0 (40-130 cm/s) E/A Ratio 1.27 MV PHT 53.0 ms Left Ventricle The left ventricle is normal size. The left ventricular systolic function is normal. The left ventricular ejection fraction is within the normal range. There is increased LV wall thickness. There is normal LV segmental wall motion. The left ventricular diastolic function is normal. LVEF is 55%. Right Ventricle Right ventricle is mildly dilated. The right ventricular systolic function is normal. Atria The left atrium size is normal. The right atrium size is normal. There is no Doppler evidence of interatrial shunt. Aortic Valve The aortic valve is mildly thickened. There is no aortic valvular stenosis. No aortic regurgitation. Mitral Valve The mitral valve is normal in structure. No evidence of mitral valve stenosis. Mild mitral regurgitation. Tricuspid Valve Tricuspid valve is grossly normal in structure and function. Trace tricuspid regurgitation. Pulmonic Valve The pulmonary valve is normal in structure. Trace pulmonic regurgitation. Great Vessels The aortic root is normal in size. IVC is normal in size and collapses >50% with inspiration. Pericardium There is no pericardial effusion. Other Information Study Quality: Technically Difficult Conclusion Technically difficult study due to poor acoustic windows. Normal biventricular systolic function. Mild RV dilation. Mild MR. Electronically signed by : Rosa Li MD 11/09/2024 23:06:50
--- OUTSIDE RECORDS SUMMARY | 2024-11-05 12:39 | XMS_ITS | Clinical Summary ---
Author Organization [facility] Address [address] [facility] [place] [address] Phone Care Team Providers Care Lumber Driver Name Role Phone Kimberly Andrews MD Primary Care Provider [phone] Allergies No known active allergies Medications omeprazole [...] EDT Office Visit [facility] [address] [place] [address] Ryan Lockett MD Cough, unspecified type (Primary Dx); SOB (shortness of breath); UIP (usual interstitial pneumonitis) ([facility]); Seropositive rheumatoid arthritis of multiple sites ([facility]) 08/26/2024 Travel from Last 3 Months Surgical History Surgery Date Site/Laterality Comments ELBOW SURGERY right elbow surgery due to work injury-elbow was crushed. FINGER SURGERY left index finger surgery due to blood poisoning. CHOLECYSTECTOMY 2018 polyp Medical History Medical History Date Comments Arthritis Bipolar 1 disorder ([facility]) bipolar manic depressive. [place] (myocardial infarction) ([facility]) patient denied any heart attack at time [...] [place] [id number] Ryan Lockett MD [address] [phone] 02/26/2025 1:00 PM EST Appointment [facility] [address] [place] [address] Ryan Lockett MD [address] [phone] 02/28/2025 1:00 PM EST Office Visit [facility] [address] [phone] Ryan Lockett MD [address] [phone] Health Maintenance Due Date Last [...] KRUSE MR AALIYAH KRUSE MR Care Teams Lumber Driver Relationship Specialty Start Date End Date Kimberly Andrews MD [address] [place] [address] PCP - General Family Medicine 08/29/11
--- OUTSIDE RECORDS SUMMARY | 2024-11-05 12:40 | XMS_ITS | Clinical Summary ---
Author Organization [facility] Address [address] [place] [address] Care Team Providers Care Tankage Supervisor Name Role Phone Paolo Colunga MD Primary Care Provider [phone] Allergies No known active allergies Medications atorvastatin [...] disease Father Chris palomino sr. Obesity Father Chris palomino sr. Mental illness Maternal Grandmother Violet [...] Health Maintenance Due Date Last Done Comments [facility] Annual Wellness (AWV) 1955 Y-/Child/Adol SDOH Screenings 1955 [id number] Vaccine (#1) 02/08/1960 [facility]- SDOH Screenings 1973 [...] Antigen Negative Negative 09/14/2021 3:39 PM EDT [facility] Hepatitis C Antibody Negative Negative 09/14/2021 3:39 PM EDT [facility] Hepatitis A Antibody IgM Negative Negative 09/14/2021 3:39 PM EDT [facility] Hepatitis B Core Antibody IgM Negative Negative 09/14/2021 3:39 PM EDT [facility] Blood Venous blood specimen / Unknown Venipuncture / Unknown 09/14/2021 1:31 PM EDT 09/14/2021 1:31 PM EDT us Marilynn Segundo Hernandez CREDIT ADVISOR LAB BLOOD ORDERABLES Imelda taveras Result [facility] [address] [place] [address] from Last 3 Months or Most Recently Relevant to Health Maintenance Insurance [employer] Care Teams Tankage Supervisor Relationship Specialty Start Date End Date Paolo Colunga MD PCP - General 08/02/21
--- OUTSIDE RECORDS SUMMARY | 2024-11-05 12:40 | XMS_ITS | Encounter Summary ---
Author Organization [facility] Address [address] [id number] Care Team Providers Care Data Migration Lead Name Role Phone Paolo Colunga MD Primary Care Provider [phone] Encounter Details Date Type Department Care Team (Late st Contact Info) Description 12/22/2023 [facility] [address] [place] [address] Paolo Colunga MD [address] [place] [address] Social History Tobacco Use Types Packs/Day Years [...] documented as of this encounter Care Teams Data Migration Lead Relationship Specialty Start Date End Date Paolo Colunga MD PCP - General 08/02/21 documented as of this encounter
--- OUTSIDE RECORDS SUMMARY | 2024-11-05 12:40 | XMS_ITS | Encounter Summary ---
Author Organization [facility] Address [address] [place] [address] Care Team Providers Care Housing Specialist Name Role Phone Paolo Colunga MD Primary Care Provider [phone] Reason for Referral * Consultation (Routine) - Closed Specialty Diagnoses / Procedures Referred By Contac t Referred To Contact Rheumatology Diagnoses Elevated rheumatoid factor Elevated sed rate Elevated C-reactive protein (CRP) Paolo Colunga MD Phone: tel: fax: Referral ID Status Reason Start Date Expiration Date V isits Requested Visits Authorized [id number] Closed Specialty Services Required 08/02/2021 02/01/2023 1 1 Encounter Details Date Type Department Care Team (Late st Contact Info) Description 08/02/2021 [facility] [address] [place] [address] Paolo Colunga MD [facility] [place] [address] Elevated rheumatoid factor (Primary Dx); Elevated sed [...] (CRP) documented in this encounter Care Teams Housing Specialist Relationship Specialty Start Date End Date Paolo Colunga MD PCP - General 08/02/21 documented as of this encounter
== END 2024-11-05 23:59 | disposition home or self-care (01) ==
PROVIDERS: PCP Family Medicine; Visit Provider Internal Medicine Rheumatology
DX: I34.0 Nonrheumatic mitral (valve) insufficiency (principal); I51.7 Cardiomegaly; M06.09 Rheumatoid arthritis without rheumatoid factor, multiple sites; I27.20 Pulmonary hypertension, unspecified; J84.10 Pulmonary fibrosis, unspecified; J84.9 Interstitial pulmonary disease, unspecified
CPT/HCPCS: 93306

== ENCOUNTER 2024-11-21 14:01 | Emergency (ER) | payer MEDICARE, SELFPAY ==
[2024-11-21 14:36] VITALS: BP 161/87; PULSE 89; RESP 20; TEMP 37; O2SAT 95; BMI 34.9
--- NOTE | 2024-11-21 14:37 | HMH.EDGENADL ---
Discharge Plan Disposition Patient Disposition: Home, Self-Care Condition: Good Prescriptions Prescriptions: No Action atorvastatin 20 mg tablet See Rx Instructions .ROUTE .COMPLEX Qty: 90 3RF Dose Instruction: TAKE 1 TABLET BY MOUTH ONCE A DAY Rx Instructions: TAKE 1 TABLET BY MOUTH ONCE A DAY fluorouracil 5 % cream 1 applic topical BID Qty: 40 0RF Rx Instructions: use twice a day until signif blister forms, hold then allow blister to heal, repeat cycle as necessary oxycodone-acetaminophen [Percocet] 10-325 mg tablet 1 tab PO Q6H PRN (Reason: pain) Qty: 120 0RF Rx Instructions: for severe pain assoc w/rheumatoid zolpidem [Ambien] 10 mg tablet 10 mg PO HS Qty: 30 3RF methotrexate sodium 25 mg/mL solution PO prednisone 5 mg tablet PO Patient Comments: TAKE 1 TABLET BY MOUTH ONCE DAILY DIRECTED IN OFFICE. TAKE WITH FOOD. NO NSAID USE. omeprazole 40 mg capsule,delayed release(DR/EC) PO Patient Comments: TAKE 1 CAPSULE BY MOUTH ONCE DAILY. sulfasalazine 500 mg tablet PO Patient Comments: TAKE 2 TABLETS BY MOUTH TWICE DAILY pantoprazole [Protonix] 40 mg tablet,delayed release (DR/EC) 40 mg PO BID Qty: 180 3RF famotidine [Pepcid] 20 mg tablet 20 mg PO BID Qty: 180 3RF folic acid 1 mg tablet 1 mg PO DAILY Qty: 90 3RF metformin 500 mg tablet See Rx Instructions .ROUTE .COMPLEX Qty: 180 3RF Dose Instruction: TAKE 1 TABLET BY MOUTH 2 TIMES DAILY FOR DIABETES. Rx Instructions: TAKE 1 TABLET BY MOUTH 2 TIMES DAILY FOR DIABETES. gabapentin 300 mg capsule 300 mg PO Q8H PRN (Reason: neuropathy) Qty: 90 3RF oxycodone 5 mg tablet 5 mg PO Q8H PRN (Reason: pain) Qty: 5 0RF methocarbamol 500 mg tablet 500 mg PO Q8H PRN (Reason: pain) Qty: 10 0RF Referrals Follow up/Referrals: Paolo Colunga MD [Primary Care Provider, Family Practice] - See instructions Activity Restrictions/Add. Instructions Additional Instructions/Restrictions: You can use bacitracin ointment on the wound up to 3 times a day to help prevent infection. If your out in public, you can keep the wound covered with gauze. If not, is okay to leave the wound open. You can use gentle soap and water on the area to keep it clean. If you develop any signs of infection, such as increased redness, swelling, pus draining from the wound or fever, return to the emergency department for evaluation. Clinical Impressions Clinical Impression: Skin tear of left forearm without complication Print Language Print Language: Malaysian Discharge ED Provider: Gene Mejía General Adult HPI General Chief complaint: Extremity Injury, Upper Stated complaint: [id number] laceration to left arm Time Seen by Provider: 11/21/24 14:32 Mode of Arrival: Ambulatory Source of Information: Patient Limitations: No Limitations History of Present Illness HPI narrative: Chris Eddy is a 69-year-old male with a past medical history of diabetes mellitus, rheumatoid arthritis, ILD who presents to the emergency department for complaints of got caught on a screw. He states that this then tore the skin off of his left forearm. Laceration to his left forearm. Patient states that around 9:00 this morning, he was in his chicken coop and his left arm. He cleaned the wound at home with water and put triple antibiotic ointment on it. He states that his son looked at the injury and told him to come to the emergency department. He denies any other wounds or trauma. Related Data Home Medications ?Medication ?Instructions ?Recorded ?Confirmed methotrexate sodium 25 mg/mL mg PO 07/10/23 11/11/24 injection solution omeprazole 40 mg capsule,delayed mg PO 01/31/24 11/11/24 release prednisone 5 mg tablet mg PO 01/31/24 11/11/24 sulfasalazine 500 mg tablet PO 05/13/24 11/11/24 Previous Rx's ?Medication ?Instructions ?Recorded pantoprazole 40 mg tablet,delayed 40 mg PO BID #180 tabs 07/10/24 release (Protonix) atorvastatin 20 mg tablet See Rx Instructions .Route 08/12/24 .COMPLEX #90 tabs metformin 500 mg tablet See Rx Instructions .Route 09/18/24 .COMPLEX #180 tabs famotidine 20 mg tablet (Pepcid) 20 mg PO BID #180 tabs 10/09/24 folic acid 1 mg tablet 1 mg PO DAILY #90 tabs 10/09/24 methocarbamol 500 mg tablet 500 mg PO Q8H PRN pain #10 tabs 10/29/24 oxycodone 5 mg tablet 5 mg PO Q8H PRN pain #5 tabs 10/29/24 gabapentin 300 mg capsule 300 mg PO Q8H PRN neuropathy #90 11/08/24 caps fluorouracil 5 % topical cream 1 applic topical BID #40 grams 11/11/24 oxycodone-acetaminophen 10 mg-325 1 tab PO Q6H PRN pain #120 tabs 11/11/24 mg tablet (Percocet) zolpidem 10 mg tablet (Ambien) 10 mg PO HS #30 tabs 11/11/24 Allergies Allergy/AdvReac Type Severity Reaction Status Date / Time No Known Allergies Allergy Verified 11/11/24 13:53 [facility] Disclaimer: The information contained in this section may have been updated after the patient was seen, as this information can be updated by other users. Medical History Immunosuppression Asthma ILD (interstitial lung disease) Dyspnea on exertion Pulmonary fibrosis, unspecified Rheumatoid arthritis History of 2019 novel coronavirus disease (COVID-19) Asthma Surgical History History of surgery on lower extremity Family History Other Diabetes Social History (Updated 11/11/24 @ 13:53 by Lulú Hernandez MA) Smoking Status: Former smoker tobacco type: smokeless tobacco second hand exposure: No alcohol intake: current alcohol intake frequency: holidays/special occasions only substance use type: denies use current occupational status: retired Travel in the last 8 weeks?: None household members: other housing: house current occupation: [employer] current occupational exposures/hazards: No caffeine: Yes Have you lived/traveled outside US in past 30 days?: No Contact w/someone who lives/traveled outside US past 30 days?: No Exposure to someone with infectious disease in past 14 days?: No Do you have a fever (greater than 100.4 F or 38 C)?: No Have you tested positive for COVID-19?: No Exposed to someone with COVID-19 in past 14 days?: No Do you have a sore throat?: No Do you have a cough?: No Do you have any weakness?: No Do you have any diarrhea?: No Are you experiencing any unusual bleeding?: No Do you have any muscle aches/pain?: No Do you have any abdominal pain?: No Are you experiencing loss of taste or smell?: No Other Medical History Have you received the Flu Vaccine for this season: No Have you received the Pneumonia Vaccine: Yes ROS Obtained: Yes Systems reviewed as appropriate & no additional complaints except as documented Physical Exam General General appearance: alert and in no apparent distress Head Head exam: atraumatic Eye Eye exam: Present normal appearance ENT ENT exam: Present normal external ear exam Neck Neck exam: Present full ROM Chest Chest inspection: Present symmetric chest wall rise Respiratory Respiratory exam: Present normal lung sounds bilaterally; Absent respiratory distress Cardiovascular Cardiovascular exam: Present regular rate and normal rhythm Abdominal Exam Abdominal exam: Absent distention exam: Present deferred Extremities Exam Extremities exam: Present normal inspection and other (Left upper extremity: Skin avulsion to proximal left dorsal forearm. Wound is very superficial. There is a small skin flap over the more distal aspect of the wound. Wound is approximately 6 cm in length in total. No active bleeding.) Back Exam Back exam: Present normal inspection Neurological Exam Neurological exam: Present alert and oriented X3 Psychiatric Psychiatric exam: Present normal affect Skin Skin exam: Present warm and dry Medical Decision Making Medical Records Screening: Per USPSTF and CDC recommendations, given the prevalence of disease in our region, it is our hospital?s policy to screen for HIV and viral Hepatitis for all patients aged 18 and over and those with ongoing risk factors. Luis Daniel Inquiry Pt receiving controlled substance: No Vital Signs: 11/21/24 14:36 Temperature 98.6 F Temperature Source Oral Pulse Rate [Right] 89 Respiratory Rate 20 Blood Pressure [Right Arm] 161/87 H Blood Pressure Mean [Right Arm] 111 02 Sat by Pulse Oximetry 95 Oxygen Delivery Method Room Air Orders (Tests/Meds): ED MEDICATIONS Generic Name Dose Route Start Last Admin Trade Name Freq PRN Reason Stop Dose Admin Bacitracin 1 gm 11/21/24 14:42 Bacitracin Zinc Oint 30gm Tube TP 11/21/24 14:43 ONCE ONE Discontinued Medications Generic Name Dose Route Start Last Admin Trade Name Freq PRN Reason Stop Dose Admin Tetanus/Reduced Diphtheria/Acell Pertussis 0.5 ml 11/21/24 14:35 Tet/Diphth/Pert-Adult 0.5ml Syringe IM 11/21/24 14:36 .ONCE ONE Medical Decision Narrative: Chris Eddy is a 69-year-old male with a past medical history of diabetes mellitus, rheumatoid arthritis, ILD who presents to the emergency department for complaints of got caught on a screw. He states that this then tore the skin off of his left forearm. Laceration to his left forearm. Patient states that around 9:00 this morning, he was in his chicken coop and his left arm. He cleaned the wound at home with water and put triple antibiotic ointment on it. He states that his son looked at the injury and told him to come to the emergency department. He denies any other wounds or trauma. On arrival, patient is hypertensive, breathing roughly on room air with appropriate oxygen saturation, afebrile. Physical exam, stated above, reveals an overall well-appearing male in no distress. He has a skin tear to his left proximal forearm measures approximately 6 cm in length. There is a skin flap on the distal aspect of it. No other injuries are appreciated. Given the superficial nature of the wound, it is felt that it will heal appropriately by secondary intention without repair. X-ray imaging was considered, however given the superficial nature of the wound, there is no concern for foreign body or fracture and the radiation exposure outweighs the potential benefits at this time. Will place 3 Steri-Strips over the skin flap on the distal aspect. Prior to this, the patient's wound was irrigated thoroughly with Hibiclens and sterile water. Patient was directed to keep the wound clean by using gentle soap and water. Will provide bacitracin ointment. Return precautions were given. All questions were answered. He demonstrates understanding and was in agreement with this plan. He was then discharged from the emergency department in stable condition peer Procedures Laceration Laceration 1: Site: upper extremity Side (If applicable): left Size (cm): 6 Description: flap and other (skin avulsion) Depth: simple, single layer Pre-repair: irrigated extensively Skin layer closed with: other (Steri-Strips x 3) Critical Care Critical Care Time Critical Care Time: No
--- OUTSIDE RECORDS SUMMARY | 2024-11-21 14:42 | XMS_ITS | Clinical Summary ---
Author Organization [facility] Address [address] [place] [address] Care Team Providers Care Doctor Of Osteopathy Name Role Phone Paolo Colunga MD Primary Care Provider [phone] Allergies No known active allergies Medications atorvastatin [...] Health Maintenance Due Date Last Done Comments [facility]-Medicare Annual Wellness (AWV) 1955 Y-/Child/Adol SDOH Screenings 1955 [id number] Vaccine (#1) 02/08/1960 [facility]- SDOH Screenings 1973 [...] Antigen Negative Negative 09/14/2021 3:39 PM EDT [facility] Hepatitis C Antibody Negative Negative 09/14/2021 3:39 PM EDT [facility] Hepatitis A Antibody IgM Negative Negative 09/14/2021 3:39 PM EDT [facility] Hepatitis B Core Antibody IgM Negative Negative 09/14/2021 3:39 PM [facility]T [facility] Blood Venous blood specimen / Unknown Venipuncture / Unknown 09/14/2021 1:31 PM EDT 09/14/2021 1:31 PM EDT us Marilynn Segundo Hernandez MACHINE TANK OPERATOR LAB BLOOD ORDERABLES Imelda taveras [facility] [address] [place] [address] from Last 3 Months or Most Recently Relevant to Health Maintenance Insurance [employer] Care Teams Doctor Of Osteopathy Relationship Specialty Start Date End Date Paolo Colunga MD PCP - General 08/02/21
--- OUTSIDE RECORDS SUMMARY | 2024-11-21 14:42 | XMS_ITS | Clinical Summary ---
Author Organization [facility] Address [address] [facility] [place] [address] Phone Care Team Providers Care Rope Walker Name Role Phone Kimberly Andrews MD Primary Care Provider [phone] Allergies No known active allergies Medications omeprazole [...] EDT Office Visit [facility] [address] [place] [address] Ryan Lockett MD Cough, unspecified type (Primary Dx); SOB (shortness of breath); UIP (usual interstitial pneumonitis) ([facility]); Seropositive rheumatoid arthritis of multiple sites ([facility]) 08/26/2024 Travel from Last 3 Months Surgical History Surgery Date Site/Laterality Comments ELBOW SURGERY right elbow surgery due to work injury-elbow was crushed. FINGER SURGERY left index finger surgery due to blood poisoning. CHOLECYSTECTOMY 2018 polyp Medical History Medical History Date Comments Arthritis Bipolar 1 disorder ([facility]) bipolar manic depressive. DC (myocardial infarction) ([facility]) patient denied any heart attack at [...] [place] [address] Ryan Lockett MD [address] [address] 02/26/2025 1:00 PM EST Appointment [facility] [address] [place] [address] Ryan Lockett MD [address] [phone] 02/28/2025 1:00 PM EST Office Visit [facility] [address] [address] Ryan Lockett MD [address] [address] Health Maintenance Due Date Last [...] KRUSE MR AALIYAH KRUSE MR Care Teams Rope Walker Relationship Specialty Start Date End Date Kimberly Andrews MD [address] [place] [address] PCP - General Family Medicine 08/29/11
--- OUTSIDE RECORDS SUMMARY | 2024-11-21 14:42 | XMS_ITS | Encounter Summary ---
Author Organization [facility] Address [address] [id number] Care Team Providers Care Veneer Trimmer Name Role Phone Paolo Colunga MD Primary Care Provider [phone] Encounter Details Date Type Department Care Team (Late st Contact Info) Description 12/22/2023 [facility] [address] [place] [address] Paolo Colunga MD [address] [place] [address] Social History Tobacco Use Types Packs/Day Years [...] documented as of this encounter Care Teams Veneer Trimmer Relationship Specialty Start Date End Date Paolo Colunga MD PCP - General 08/02/21 documented as of this encounter
--- OUTSIDE RECORDS SUMMARY | 2024-11-21 14:42 | XMS_ITS | Encounter Summary ---
Author Organization [facility] Address [address] [place] [address] Care Team Providers Care Wheel Blocker Name Role Phone Paolo Colunga MD Primary Care Provider [phone] Reason for Referral * Consultation (Routine) - Closed Specialty Diagnoses / Procedures Referred By Contac t Referred To Contact Rheumatology Diagnoses Elevated rheumatoid factor Elevated sed rate Elevated C-reactive protein (CRP) Paolo Colunga MD Phone: tel: fax: Referral ID Status Reason Start Date Expiration Date V isits Requested Visits Authorized [id number] Closed Specialty Services Required 08/02/2021 02/01/2023 1 1 Encounter Details Date Type Department Care Team (Late st Contact Info) Description 08/02/2021 [facility] [address] [place] [address] Paolo Colunga MD [facility] [place] [address] Elevated rheumatoid factor (Primary Dx); Elevated sed [...] (CRP) documented in this encounter Care Teams Wheel Blocker Relationship Specialty Start Date End Date Paolo Colunga MD PCP - General 08/02/21 documented as of this encounter
[2024-11-21] MEDS: TET/DIPHTH/PERT-ADULT 0.5ML SYRINGE 0.5 ML IM (14:46)
[2024-11-21] MEDS: BACITRACIN ZINC OINT 30GM TUBE TP (14:47)
[2024-11-21 14:54] VITALS: BP 161/87; PULSE 82; RESP 18; TEMP 36.9; O2SAT 96
== END 2024-11-21 14:55 | disposition home or self-care (01) ==
PROVIDERS: Emergency Provider Student in an Organized Health Care Education/Training Program; PCP Family Medicine
DX: S51.802A Unspecified open wound of left forearm, initial encounter (principal); W26.8XXA Contact with other sharp object(s), not elsewhere classified, initial encounter
CPT/HCPCS: 90471; 90715; 99283

== ENCOUNTER 2024-11-23 14:01 | Observation (INO) | payer MEDICARE, SELFPAY ==
[2024-11-23] VITALS (9 sets, daily range): BP systolic 109–127; BP diastolic 58–69; PULSE 95–124; RESP 14–34; TEMP 36.8–38.3; O2SAT 94–96; BMI 35.6; BMI 36.3
--- OUTSIDE RECORDS SUMMARY | 2024-11-23 14:05 | XMS_ITS | Clinical Summary ---
Author Organization [facility] Address [address] [place] [address] Phone Care Team Providers Care Lockstitch Sleeve Setter Name Role Phone Kimberly Andrews MD Primary Care Provider [phone] Allergies No known active allergies Medications omeprazole [...] EDT Office Visit [facility] [address] [place] [address] Ryan Lockett MD Cough, unspecified type (Primary Dx); SOB (shortness of breath); UIP (usual interstitial pneumonitis) ([facility]); Seropositive rheumatoid arthritis of multiple sites ([facility]) 08/26/2024 Travel from Last 3 Months Surgical History Surgery Date Site/Laterality Comments ELBOW SURGERY right elbow surgery due to work injury-elbow was crushed. FINGER SURGERY left index finger surgery due to blood poisoning. CHOLECYSTECTOMY 2018 polyp Medical History Medical History Date Comments Arthritis Bipolar 1 disorder ([facility]) bipolar manic depressive. OR (myocardial infarction) ([facility]) patient denied any heart attack at time of database call but told Jahaira Boateng he had mild heart attack 6 years ago at time of her phone call. Family History Medical History Relation Name Comments Cancer Father da palomino Sr. lung canc er Diabetes Father da palomino Sr. Heart Disease Father da palomino Sr. Asthma Mother Sherly Relation Name Status Comments Father da palomino [...] [place] [address] Ryan Lockett MD [address] [address] 02/26/2025 1:00 PM EST Appointment [facility] [address] [place] [address] Ryan Lockett MD [address] [address] 02/28/2025 1:00 PM EST Office Visit [facility] [address] [address] Ryan Lockett MD [address] [address] Health Maintenance Due Date Last [...] KRUSE MR AALIYAH KRUSE MR Care Teams Lockstitch Sleeve Setter Relationship Specialty Start Date End Date Kimberly Andrews MD [address] [place] [address] PCP - General Family Medicine 08/29/11
--- OUTSIDE RECORDS SUMMARY | 2024-11-23 14:05 | XMS_ITS | Clinical Summary ---
Author Organization [facility] Address [address] [place] [address] Care Team Providers Care Dinner Cook Name Role Phone Paolo Colunga MD Primary Care Provider [phone] Allergies No known active allergies Medications atorvastatin [...] Due Date Last Done Comments [facility]-Medicare Annual Wellness (AWV) 1955 Y-Infant/Child/Adol SDOH Screenings 1955 [id number] Vaccine (#1) 02/08/1960 [facility]- SDOH Screenings 1973 [...] Antigen Negative Negative 09/14/2021 3:39 PM EDT [facility] Hepatitis C Antibody Negative Negative 09/14/2021 3:39 PM EDT [facility] Hepatitis A Antibody IgM Negative Negative 09/14/2021 3:39 PM EDT [facility] Hepatitis B Core Antibody IgM Negative Negative 09/14/2021 3:39 PM EDT [facility] Blood Venous blood specimen / Unknown Venipuncture / Unknown 09/14/2021 1:31 PM EDT 09/14/2021 1:31 PM EDT us Marilynn Segundo Hernandez ACCOUNTING RECRUITER LAB BLOOD ORDERABLES Imelda taveras Result [facility] [address] [place] [address] from Last 3 Months or Most Recently Relevant to Health Maintenance Insurance [employer] Care Teams Dinner Cook Relationship Specialty Start Date End Date Paolo Colunga MD PCP - General 08/02/21
--- OUTSIDE RECORDS SUMMARY | 2024-11-23 14:05 | XMS_ITS | Encounter Summary ---
Author Organization [facility] Address [address] [id number] Care Team Providers Care Weather Analyst Name Role Phone Paolo Colunga MD Primary Care Provider [phone] Encounter Details Date Type Department Care Team (Late st Contact Info) Description 12/22/2023 [facility] [address] [place] [address] Paolo Colunga MD [address] [place] [address] Social History Tobacco Use Types Packs/Day Years [...] documented as of this encounter Care Teams Weather Analyst Relationship Specialty Start Date End Date Paolo Colunga MD PCP - General 08/02/21 documented as of this encounter
--- OUTSIDE RECORDS SUMMARY | 2024-11-23 14:05 | XMS_ITS | Encounter Summary ---
Author Organization [facility] Address [address] [place] [address] Care Team Providers Care Embedded Hardware Engineer Name Role Phone Paolo Colunga MD Primary Care Provider [phone] Reason for Referral * Consultation (Routine) - Closed Specialty Diagnoses / Procedures Referred By Contac t Referred To Contact Rheumatology Diagnoses Elevated rheumatoid factor Elevated sed rate Elevated C-reactive protein (CRP) Paolo Colunga MD Phone: tel: fax: Referral ID Status Reason Start Date Expiration Date V isits Requested Visits Authorized [id number] Closed Specialty Services Required 08/02/2021 02/01/2023 1 1 Encounter Details Date Type Department Care Team (Late st Contact Info) Description 08/02/2021 [facility] [address] [place] [address] [facility] [place] [address] Elevated rheumatoid factor (Primary Dx); Elevated sed [...] (CRP) documented in this encounter Care Teams Embedded Hardware Engineer Relationship Specialty Start Date End Date Paolo Colunga MD PCP - General 08/02/21 documented as of this encounter
--- NOTE | 2024-11-23 14:08 | PC.NURSE ---
stroke alert called
--- NOTE | 2024-11-23 14:13 | CT_ITS ---
PROCEDURE INFORMATION: Exam: CTA Head With Contrast, Arteriography Exam date and time: 11/23/2024 2:18 PM Age: 69 years old Clinical indication: Stroke-like symptoms; Other: Possible stroke TECHNIQUE: Imaging protocol: Computed tomographic angiography of the head with contrast. Exam focused on the arteries. 3D rendering (Not supervised by radiologist): MIP and/or 3D reconstructed images were created by the technologist. Radiation optimization: All CT scans at this facility use at least one of these dose optimization techniques: automated exposure control; mA and/or kV adjustment per patient size (includes targeted exams where dose is matched to clinical indication); or iterative reconstruction. Contrast material: ISO 370; Contrast volume: 80 ml; Contrast route: INTRAVENOUS (IV); COMPARISON: CT HEAD/BRAIN WO CON 11/23/2024 2:16 PM FINDINGS: ANTERIOR CIRCULATION: Right internal carotid artery: Intracranial segment is patent with no significant stenosis. No aneurysm. Right middle cerebral artery: No occlusion or significant stenosis. No aneurysm. Right anterior cerebral artery: No occlusion or significant stenosis. No aneurysm. Left internal carotid artery: Intracranial segment is patent with no significant stenosis. No aneurysm. Left middle cerebral artery: No occlusion or significant stenosis. No aneurysm. Left anterior cerebral artery: No occlusion or significant stenosis. No aneurysm. POSTERIOR CIRCULATION: Right vertebral artery: No occlusion or significant stenosis. No aneurysm. Left vertebral artery: No occlusion or significant stenosis. No aneurysm. Basilar artery: No occlusion or significant stenosis. No aneurysm. Right posterior cerebral artery: No occlusion or significant stenosis. No aneurysm. Left posterior cerebral artery: No occlusion or significant stenosis. No aneurysm. Other arteries: Persistent circulation on the right. Brain: No definite mass, mass effect, or midline shift. Cerebral ventricles: No ventriculomegaly. Bones/joints: Unremarkable. No acute fracture. Soft tissues: Unremarkable. IMPRESSION: No large vessel stenosis or occlusion.
--- NOTE | 2024-11-23 14:13 | CT_ITS ---
PROCEDURE INFORMATION: Exam: CTA Neck With Contrast Exam date and time: 11/23/2024 2:18 PM Age: 69 years old Clinical indication: Stroke-like symptoms; Other: Possible stroke TECHNIQUE: Imaging protocol: Computed tomographic angiography of the neck with contrast. Exam focused on the cervical segments of the vasculature. 3D rendering (Not supervised by radiologist): MIP and/or 3D reconstructed images were created by the technologist. Radiation optimization: All CT scans at this facility use at least one of these dose optimization techniques: automated exposure control; mA and/or kV adjustment per patient size (includes targeted exams where dose is matched to clinical indication); or iterative reconstruction. Contrast material: ISO 370; Contrast volume: 80 ml; Contrast route: INTRAVENOUS (IV); COMPARISON: MR CERVICAL SPINE WO CON 04/21/2020 8:06 AM FINDINGS: Right common carotid artery: No stenosis. No dissection or occlusion. Right internal carotid artery: Mild atherosclerotic disease involving the origin right internal carotid artery. Right external carotid artery: No occlusion or stenosis of the origin. Left common carotid artery: No stenosis. No dissection or occlusion. Left internal carotid artery: Mild atherosclerotic disease involving origin of left internal carotid artery. Left external carotid artery: No occlusion or stenosis of the origin. Right vertebral artery: No stenosis. No dissection or occlusion. Left vertebral artery: No stenosis. No dissection or occlusion. Brain: Thin section images are in the CTA brain folder. Soft tissues: Normal. No significant soft tissue swelling. Bones/joints: No acute fracture. IMPRESSION: No stenosis or occlusion. REFERENCES: NASCET CRITERIA. The degree of stenosis in the cervical segment of the internal carotid artery is based on NASCET criteria. Normal is no stenosis. Mild is less than 50% stenosis. Moderate is 50-69% stenosis. Severe is 70% to 99% stenosis. Total occlusion is no detectable patent lumen.
--- NOTE | 2024-11-23 14:13 | ECG_ITS ---
APPROVED REPORT Exam: Resting ECG HR:122 bpm ECG Measurements Heart Rate 122 AXES OK 149 P 49 QRSd 85 QRS 48 QT 290 T 56 QTc 363 Conclusion SINUS TACHYCARDIA ABNORMAL RHYTHM ECG UNCONFIRMED REPORT Sinus tachycardia. No ST elevation or depression. QTc normal at 363 Electronically signed by : CRISTOBAL HUDDLESTON, 11/25/2024 14:19:54
--- NOTE | 2024-11-23 14:13 | CT_ITS ---
PROCEDURE INFORMATION: Exam: CT Head Without Contrast Exam date and time: 11/23/2024 2:16 PM Age: 69 years old Clinical indication: Stroke-like symptoms; Other: Possible stroke TECHNIQUE: Imaging protocol: Computed tomography of the head without contrast. Radiation optimization: All CT scans at this facility use at least one of these dose optimization techniques: automated exposure control; mA and/or kV adjustment per patient size (includes targeted exams where dose is matched to clinical indication); or iterative reconstruction. Other technique: STROKE PROTOCOL was implemented. COMPARISON: MR CERVICAL SPINE WO CON 04/21/2020 8:06 AM FINDINGS: Brain: Large bilateral posterior subdural hygromas. No intracranial hemorrhage. No midline shift. Cerebral ventricles: No ventriculomegaly. Paranasal sinuses: Visualized sinuses are unremarkable. No fluid levels. Mastoid air cells: Visualized mastoid air cells are well aerated. Bones: Unremarkable. No acute fracture. Soft tissues: Unremarkable. IMPRESSION: No acute intracranial abnormality. ASSESSMENT: ASPECTS (Melisa Stroke Program Early CT Score) is 10.
--- NOTE | 2024-11-23 14:13 | XR_ITS ---
PROCEDURE INFORMATION: Exam: XR Chest Exam date and time: 11/23/2024 2:21 PM Age: 69 years old Clinical indication: Shortness of breath; Additional info: SOA TECHNIQUE: Imaging protocol: Radiologic exam of the chest. Views: 1 view. COMPARISON: 1. CT HR CHEST X3 10/06/2022 2:15 PM 2. CR XR CHEST 2V 06/13/2022 3:25 PM FINDINGS: Lungs: Bilateral pulmonary infiltrates. When compared to previous chest x-ray they are more severe suggesting pulmonary edema and mild heart failure. Pleural spaces: Unremarkable. No pleural effusion. No pneumothorax. Heart/Mediastinum: See Lungs finding. Bones/joints: Unremarkable. IMPRESSION: Fluid overload versus heart failure.
[2024-11-23] MEDS: IOPAMIDOL-370 (76%);100ML BOTTLE 80 ML IV (14:17)
[2024-11-23] MEDS: SODIUM CHLORIDE 0.9% 10ML SYR (RAD ONLY) 10 ML IV (14:17)
[2024-11-23] MEDS: 0.9 % SODIUM CHLORIDE 50 ML VIAL IV (14:17)
--- NOTE | 2024-11-23 14:22 | PC.NURSE ---
pt [facility] 186
[2024-11-23 14:25] LABS: Hematocrit 41.7 % (42.0-52.0); Hemoglobin 14.4 g/dL (14.1-18.0); Immature Granulocytes % 0.6 %; Mean Corpuscular HGB Conc 34.5 g/dL (31.8-35.4); Mean Corpuscular Hemoglobin 32.9 pg (27.0-31.2); Mean Corpuscular Volume 95.2 fl (80-94); Nucleated Red Blood Cells % 0 %; Platelet Count 192 K/mm3 (142-424); Red Blood Count 4.38 M/mm3 (4.60-6.20); Red Cell Distribution Width-SD 52.7 fL; White Blood Count 16.2 K/mm3 (4.8-10.8)
[2024-11-23 14:36] LABS: VBG PCO2 34.2 mmol/L (35-51); VBG PH 7.44 mmol/L (7.31-7.41)
[2024-11-23 14:37] LABS: Lactate Venous 3.6 mmol/L (0.4-2.0); VBG HCO3 23.2 mmol/L (23-30); VBG PO2 111.3 mmol/L (28-40)
--- NOTE | 2024-11-23 14:52 | PC.NURSE ---
vrad on phone
[2024-11-23] MEDS: 0.9 % SODIUM CHLORIDE 1000ML 2,400 ML 1200 ML IV (14:56)
[2024-11-23 15:06] LABS: Albumin Level 3.7 g/dl (3.5-5.0); Chloride 94 mmol/L (98-107); Potassium 3.9 mmoL/L (3.5-5.1); Sodium 129 mmol/L (136-145)
[2024-11-23 15:08] LABS: Alanine Aminotransferase 49 U/L (12-78); Aspartate Amino Transferase 42 U/L (17-59); Blood Urea Nitrogen 17 mg/dl (9-20); Creatinine Clearance Estimated 121 mL/min (50-200); Creatinine,Serum 0.70 mg/dl (0.66-1.25); Estimated Glomerular Filt Rate 112 ml/min (>60); GFR (African American) 135 ML/MIN (>60)
[2024-11-23 15:09] LABS: Albumin/Globulin Ratio 1.0 (1.1-1.8); Alkaline Phosphatase 64 U/L (38-126); Anion Gap 11.9 mEq/L (5-15); Bilirubin,Total 0.9 mg/dl (0.2-1.3); Calcium 9.5 mg/dl (8.4-10.2); Carbon Dioxide 27 mmol/L (22.0-30.0); Cholesterol 164 mg/dl (140-200); Globulin 3.6 g/dL (1.3-3.2); Glucose 138 mg/dl (74-100); HDL Cholesterol 49 mg/dl (40-60); Total Protein,Serum 7.3 g/dl (6.3-8.2); Triglycerides 258 mg/dl (30-150)
[2024-11-23 15:12] LABS: Activated Partial Thrombo Time 24.0 seconds (22.8-30.6); INR 1.09 (0.9-1.1); Prothrombin Time 12.0 seconds (10.1-12.5)
--- NOTE | 2024-11-23 15:17 | HMH.EDGENADL ---
Discharge Plan Disposition Patient Disposition: Admitted Clinical Impressions Clinical Impression: Sepsis Discharge ED Provider: Gene Mejía Adult HPI <Luna Sousa APRN - Last Filed: 11/23/24 18:06> General Chief complaint: Weakness Stated complaint: Weakness Time Seen by Provider: 11/23/24 14:08 Mode of Arrival: EMS Source of Information: Patient and EMS Description of Symptoms (Recalled from ER Triage Doc. by RN): EMS was called out for pt with generalized weakness. EMS reports when they got to the pt's house the pt's son reports that he found the pt slumped over at the kitchen table. EMS reports that the pt was lethargic. EMS states that the pt's temp was 102.2F. EMS states that the pt hada fall yesterday. pt is not on blood thinners. pt states that he is very tired and been feeling that way for the past couple of days. Denies shortness of breath or chest pain. History of Present Illness HPI narrative: patient is a 69-year-old male with PMHx RA, interstitial lung disease, immunosuppression who presents to the ED with decreased level of consciousness via EMS. Patient's son present and states that he went to check on the patient around 10 AM, it appears he was sitting at the kitchen table taking his medications when he was kind of slumped over at the table. He states that the patient appeared to be confused, he called EMS and was brought to the ED. Related Data Home Medications ?Medication ?Instructions ?Recorded ?Confirmed methotrexate sodium 25 mg/mL 25 mg IM WEEKLY 07/10/23 11/23/24 injection solution omeprazole 40 mg capsule,delayed 40 mg PO DAILY 01/31/24 11/23/24 release prednisone 5 mg tablet 10 mg PO DAILY 01/31/24 11/23/24 sulfasalazine 500 mg tablet 500 mg PO DAILY 05/13/24 11/23/24 atorvastatin 20 mg tablet 20 mg PO HS 11/23/24 11/23/24 fluorouracil 5 % topical cream 1 applic topical BID PRN BLISTERS 11/23/24 11/23/24 gabapentin 300 mg capsule 300 mg PO BID 11/23/24 11/23/24 metformin 500 mg tablet 500 mg PO BID 11/23/24 11/23/24 Previous Rx's ?Medication ?Instructions ?Recorded pantoprazole 40 mg tablet,delayed 40 mg PO BID #180 tabs 07/10/24 release (Protonix) famotidine 20 mg tablet (Pepcid) 20 mg PO BID #180 tabs 10/09/24 folic acid 1 mg tablet 1 mg PO DAILY #90 tabs 10/09/24 methocarbamol 500 mg tablet 500 mg PO Q8H PRN pain #10 tabs 10/29/24 oxycodone-acetaminophen 10 mg-325 1 tab PO Q6H PRN pain #120 tabs 11/11/24 mg tablet (Percocet) zolpidem 10 mg tablet (Ambien) 10 mg PO HS #30 tabs 11/11/24 Allergies Allergy/AdvReac Type Severity Reaction Status Date / Time No Known Allergies Allergy Verified 11/11/24 13:53 [facility] <Luna Sousa APRN - Last Filed: 11/23/24 18:06> [facility] Disclaimer: The information contained in this section may have been updated after the patient was seen, as this information can be updated by other users. Medical History Immunosuppression Asthma ILD (interstitial lung disease) Dyspnea on exertion Pulmonary fibrosis, unspecified Rheumatoid arthritis History of 2019 novel coronavirus disease (COVID-19) Asthma Surgical History History of surgery on lower extremity Family History (Updated 11/23/24 @ 16:58 by Dagmar Thorne RN) Other Diabetes Family history of cancer Social History (Updated 11/23/24 @ 17:00 by Dagmar Thorne RN) Smoking Status: Never smoker second hand exposure: No alcohol intake: never substance use type: denies use current occupational status: retired Travel in the last 8 weeks?: None household members: other housing: house current occupation: [employer] current occupational exposures/hazards: No caffeine: Yes Have you lived/traveled outside [place] in past 30 days?: No Contact w/someone who lives/traveled outside US past 30 days?: No Exposure to someone with infectious disease in past 14 days?: No Do you have a fever (greater than 100.4 F or 38 C)?: No Have you tested positive for COVID-19?: No Exposed to someone with COVID-19 in past 14 days?: No Do you have a sore throat?: No Do you have a cough?: No Do you have any weakness?: No Are you experiencing any nausea/vomitting?: No Do you have any diarrhea?: No Are you experiencing any unusual bleeding?: No Do you have any muscle aches/pain?: No Do you have any abdominal pain?: No Are you experiencing loss of taste or smell?: No Other Medical History Have you received the Flu Vaccine for this season: No Have you received the Pneumonia Vaccine: Yes <Luna Sousa APRN - Last Filed: 11/23/24 18:06> ROS Obtained: Yes Systems reviewed as appropriate & no additional complaints except as documented Physical Exam <Luna Sousa APRN - Last Filed: 11/23/24 18:06> General General appearance: alert (to voice ) Head Head exam: atraumatic Eye Eye exam: Present PERRL Neck Neck exam: Present full ROM and trachea midline Chest Chest inspection: Present normal inspection Respiratory Respiratory exam: Present other (Tachypneic) Cardiovascular Cardiovascular exam: Present tachycardia Abdominal Exam Abdominal exam: Present soft Neurological Exam Neurological exam: Present alert and other (oriented to name, ) Skin Skin exam: Present warm Medical Decision Making <Luna Sousa APRN - Last Filed: 11/23/24 18:06> Medical Records Screening: Per USPSTF and CDC recommendations, given the prevalence of disease in our region, it is our hospital?s policy to screen for HIV and viral Hepatitis for all patients aged 18 and over and those with ongoing risk factors. Luis Daniel Inquiry Pt receiving controlled substance: No Vital Signs: 11/23/24 13:56 11/23/24 14:00 11/23/24 14:02 Temperature 100.9 F H 100.9 F H Temperature Source Oral Oral Pulse Rate 124 H Pulse Rate [Right] 124 H Respiratory Rate 19 34 H 19 Blood Pressure 115/62 109/69 L Blood Pressure [Right Arm] 109/69 L Blood Pressure Mean [Right Arm] 82 Blood Pressure Source Automatic Cuff Blood Pressure Source [Right Arm] Automatic Cuff Blood Pressure Position Supine Blood Pressure Position [Right Arm] Supine 02 Sat by Pulse Oximetry 95 95 Oxygen Delivery Method Room Air Room Air 11/23/24 14:31 11/23/24 16:29 Temperature 100 F H Temperature Source Oral Pulse Rate 121 H 106 H Pulse Rate [Right] Respiratory Rate 25 H 15 Blood Pressure 119/64 120/62 Blood Pressure [Right Arm] Blood Pressure Mean [Right Arm] Blood Pressure Source Automatic Cuff Blood Pressure Source [Right Arm] Blood Pressure Position Supine Blood Pressure Position [Right Arm] 02 Sat by Pulse Oximetry 95 Oxygen Delivery Method Room Air Lab Data Lab Results 11/23/24 14:00: Lactate 2.7 H 11/23/24 14:10: WBC 16.2 H, RBC 4.38 L, Hgb 14.4, Hct 41.7 L, MCV 95.2 H, MCH 32.9 H, MCHC 34.5, RDW 15.1, Plt Count 192, MPV 10.3, Neut % (Auto) 86.4 H, Lymph % (Auto) 4.8 L, Bulloch % (Auto) 7.9, Eos % (Auto) 0.1, Baso % (Auto) 0.2, Neut # (Auto) 14.0 H, Lymph # (Auto) 0.8, Bulloch # (Auto) 1.3 H, Eos # (Auto) 0.0, Baso # (Auto) 0.0, Magnesium 1.4 L, Plasma/Serum Alcohol < 10 11/23/24 14:13: VBG pH 7.44 H, VBG pCO2 34.2 L, VBG pO2 111.3 H, VBG HCO3 23.2, VBG Total CO2 24.2, VBG O2 Saturation 98.4 H, VBG Base Excess -0.8, VBG Lactic Acid 3.6 H 11/23/24 14:43: PT 12.0, INR 1.09, APTT 24.0, Sodium 129 L, Potassium 3.9, Chloride 94 L, Carbon Dioxide 27, Anion Gap 11.9, BUN 17, Creatinine 0.70, Estimated Creat Clear 121, Estimated GFR 112, Est GFR ( Amer) 135, Glucose 138 H, Calcium 9.5, Total Bilirubin 0.9, AST 42, ALT 49, Alkaline Phosphatase 64, Troponin I < 0.01, Total Protein 7.3, Albumin 3.7, Globulin 3.6 H, Albumin/Globulin Ratio 1.0 L, Triglycerides 258 H, Cholesterol 164, LDL Cholesterol Direct 75.06 L, VLDL Cholesterol 52 H, HDL Cholesterol 49, Cholesterol/HDL Ratio 3.3 11/23/24 14:10 11/23/24 14:43 Orders (Tests/Meds): ED MEDICATIONS Generic Name Dose Route Start Last Admin Trade Name Freq PRN Reason Stop Dose Admin Acetaminophen 650 mg 11/23/24 15:53 Acetaminophen 325mg Tab PO 12/23/24 15:52 Q4HP PRN Fever or Mild Pain (1-3) Atorvastatin Calcium 20 mg 11/23/24 21:00 Atorvastatin 20mg Tablet PO 12/23/24 20:59 HS CRYSTAL Famotidine 20 mg 11/23/24 21:00 Famotidine 20mg Tablet PO 12/23/24 20:59 BID CRYSTAL Fluorouracil gm 11/23/24 18:00 Fluorouracil 5% Cream 40gm/Tube TP 12/23/24 17:59 BID PRN BLISTERS Folic Acid 1 mg 11/24/24 09:00 Folic Acid 1mg Tablet PO 12/24/24 08:59 DAILY CRYSTAL Gabapentin 300 mg 11/23/24 21:00 Gabapentin 300mg Capsule PO 12/23/24 20:59 BID [facility] Heparin Sodium (Porcine) 5,000 unit 11/23/24 21:00 Heparin Sodium 5,000 Unit/Ml Vial SUBCUT 12/23/24 20:59 TID CRYSTAL Lactated Ringer's 1,000 mls @ 50 mls/hr 11/23/24 16:00 11/23/24 18:36 Lactated Ringer's 1000 Ml Bag IV 12/23/24 15:59 50 mls/hr .Q20H CRYSTAL Administration Piperacillin Sod/Tazobactam 50 mls @ 100 mls/hr 11/23/24 19:15 Sod 3.375 gm/ Sodium Chloride IV 12/03/24 19:14 Q6H CRYSTAL Methocarbamol 500 mg 11/23/24 18:00 Methocarbamol 500mg Tablet PO 12/23/24 17:59 Q8H PRN pain Miscellaneous 1 each 11/23/24 15:15 11/23/24 15:30 Vancomycin Consult Request NOTAPPLIC 12/23/24 15:14 1 each [facility] Administration Miscellaneous 1 each 11/23/24 19:15 Vancomycin Consult Request NOTAPPLIC 12/23/24 19:14 [facility] Ondansetron HCl 4 mg 11/23/24 15:53 Ondansetron 4mg/2ml Vial IV 12/23/24 15:52 Q8HP PRN Nausea Oxycodone/Acetaminophen 1 each 11/23/24 18:00 Oxycodone 10mg W/Apap 325mg Tablet PO 12/23/24 17:59 Q6H PRN pain Pantoprazole Sodium 40 mg 11/23/24 21:00 Pantoprazole 40mg Tablet PO 12/23/24 20:59 HS [facility] Pantoprazole Sodium 40 mg 11/23/24 21:00 Pantoprazole 40mg Tablet PO 12/23/24 20:59 BID CRYSTAL Prednisone 10 mg 11/24/24 09:00 Prednisone 5mg Tab PO 12/24/24 08:59 DAILY CRYSTAL Sodium Chloride 10 ml 11/23/24 14:12 Sodium Chloride 0.9% 10ml Flush Syringe IV 12/23/24 14:11 NEEDED PRN Maintain IV Site Sodium Chloride 10 ml 11/23/24 15:53 Sodium Chloride 0.9% 10ml Flush Syringe IV 12/23/24 15:52 NEEDED PRN Maintain IV Site Zolpidem Tartrate 10 mg 11/23/24 21:00 Zolpidem Tartrate 10 Mg Tablet PO 12/23/24 20:59 HS [facility] Discontinued Medications Generic Name Dose Route Start Last Admin Trade Name Freq PRN Reason Stop Dose Admin Acetaminophen 1,000 mg 11/23/24 15:17 11/23/24 16:24 Acetaminophen 1,000mg/100ml Vial IV 11/23/24 15:18 1,000 mg ONCE ONE Administration Sodium Chloride 1,000 mls @ 999 mls/hr 11/23/24 14:28 11/23/24 14:30 Sod Chlor 0.9% 1000ml Bag IV 11/23/24 15:28 Not Given .Q1H1M ONE Sodium Chloride 2,400 mls @ 1,200 mls/hr 11/23/24 14:30 11/23/24 14:56 Sod Chlor 0.9% 1000ml Bag 30 ml/kg infuse over 2 hr (2400 ml) 11/23/24 16:29 1,200 mls/hr IV Administration .Q2H ONE Cefepime HCl 1 gm/ Sodium 50 mls @ 100 mls/hr 11/23/24 15:08 11/23/24 16:48 Chloride IV 11/23/24 15:09 100 mls/hr ONCE ONE Administration Vancomycin HCl 2,000 mg/ 250 mls @ 125 mls/hr 11/23/24 15:15 11/23/24 15:41 Sodium Chloride IV 11/23/24 17:14 125 mls/hr ONCE ONE Administration Iopamidol 80 ml 11/23/24 14:16 11/23/24 14:17 Iopamidol-370 (76%);100ml Bottle IV 11/23/24 14:17 80 ml ONCE ONE Administration Sodium Chloride 50 ml 11/23/24 14:16 11/23/24 14:17 0.9 % Sodium Chloride 50 Ml Vial IV 11/23/24 14:17 50 ml ONCE ONE Administration Sodium Chloride 10 ml 11/23/24 14:16 11/23/24 14:17 Sodium Chloride 0.9% 10ml Syr (Rad Only) IV 11/23/24 14:17 10 ml ONCE ONE Administration ORDERS Category Date Time Status CT angio head Stat Cat Scan 11/23/24 14:[address] angio neck Stat Cat Scan 11/23/24 14:[address] head/brain wo con Stat Cat Scan 11/23/24 14:13 Completed CXR --portable [XR chest portable] Stat Exams 11/23/24 14:13 Completed Activated Partial Thrombo Time Stat Lab 11/23/24 14:43 Completed Basic Metabolic Panel AMLAB Lab 11/24/24 06:00 Ordered Basic Metabolic Panel AMLAB Lab 11/25/24 06:00 Ordered Basic Metabolic Panel AMLAB Lab 11/26/24 06:00 Ordered Complete Blood Count Auto Diff AMLAB Lab 11/24/24 06:00 Ordered Complete Blood Count Auto Diff AMLAB Lab 11/25/24 06:00 Ordered Complete Blood Count Auto Diff AMLAB Lab 11/26/24 06:00 Ordered Complete Blood Count Auto Diff Stat Lab 11/23/24 14:10 Completed Comprehensive Metabolic Panel Stat Lab 11/23/24 14:43 Completed Drug Screen,Urine Stat Lab 11/23/24 17:36 Completed Ethyl Alcohol Stat Lab 11/23/24 14:10 Completed Lactic Acid Stat Lab 11/23/24 14:00 Completed Lipid Panel Stat Lab 11/23/24 14:43 Completed Magnesium Stat Lab 11/23/24 14:10 Completed Prothrombin Time INR Stat Lab 11/23/24 14:43 Completed Troponin I Q3H Lab 11/23/24 17:50 Completed Troponin I Q3H Lab 11/23/24 19:53 Received Troponin I Stat Lab 11/23/24 14:43 Completed Urinalysis and Microscopic Stat Lab 11/23/24 17:36 Completed Blood Culture Stat Micro 11/23/24 14:49 Received Urine Culture Stat Micro 11/23/24 17:36 Received VBG [Venous Blood Gas] Stat RT 11/23/24 14:13 Completed Medical Decision Narrative: In summary, patient is a 69-year-old male with PMHx RA, interstitial lung disease, immunosuppression who presents to the ED with decreased level of consciousness via EMS. Patient's son present and states that he went to check on the patient around 10 AM, it appears he was sitting at the kitchen table taking his medications when he was kind of slumped over at the table. He states that the patient appeared to be confused, he called EMS and was brought to the ED. Patient's son states that he took his methotrexate injection this morning. Reports that he has a last known normal was last night at 11:30 PM when he called him. Upon initial evaluation patient is slumped over on the stretcher, alert. Staff called stroke alert and patient was immediately taken to CT scan. He is alert oriented to place, name and date of . He answers to voice. After he is done talking he hangs his head down again and appears to be sleeping. He is tachycardic, tachypneic, febrile. Differential diagnosis include stroke, hemorrhage, sepsis, drug use, intoxication, medication overuse, among others. CT and CTAs unremarkable per final read. My informal interpretation of the chest x-ray appears to be a multilobular pneumonia. CBC remarkable for WBC 16.2, stable H&H. CMP remarkable for sodium of 129, glucose 138, lactate 2.7. pH 7.44, CO2 34.2. Dx sepsis & PNA. Started vancomycin and cefepime, patient has received sepsis IV fluid bolus. Upon reassessment, patient is sitting up in bed, alert and oriented. He is mentating well and conversational at this time. I updated him that he has pneumonia which we will admit him to the hospital for. Patient was accepted by Dr. Pacheco. <Gene Mejía MD - Last Filed: 11/23/24 20:03> Vital Signs: 11/23/24 13:56 11/23/24 14:00 11/23/24 14:02 Temperature 100.9 F H 100.9 F H Temperature Source Oral Oral Pulse Rate 124 H Pulse Rate [Right] 124 H Respiratory Rate 19 34 H 19 Blood Pressure 115/62 109/69 L Blood Pressure [Right Arm] 109/69 L Blood Pressure Mean [Right Arm] 82 Blood Pressure Source Automatic Cuff Blood Pressure Source [Right Arm] Automatic Cuff Blood Pressure Position Supine Blood Pressure Position [Right Arm] Supine 02 Sat by Pulse Oximetry 95 95 Oxygen Delivery Method Room Air Room Air 11/23/24 14:31 11/23/24 16:29 Temperature 100 F H Temperature Source Oral Pulse Rate 121 H 106 H Pulse Rate [Right] Respiratory Rate 25 H 15 Blood Pressure 119/64 120/62 Blood Pressure [Right Arm] Blood Pressure Mean [Right Arm] Blood Pressure Source Automatic Cuff Blood Pressure Source [Right Arm] Blood Pressure Position Supine Blood Pressure Position [Right Arm] 02 Sat by Pulse Oximetry 95 Oxygen Delivery Method Room Air Lab Data Lab Results 11/23/24 14:00: Lactate 2.7 H 11/23/24 14:10: WBC 16.2 H, RBC 4.38 L, Hgb 14.4, Hct 41.7 L, MCV 95.2 H, MCH 32.9 H, MCHC 34.5, RDW 15.1, Plt Count 192, MPV 10.3, Neut % (Auto) 86.4 H, Lymph % (Auto) 4.8 L, Bulloch % (Auto) 7.9, Eos % (Auto) 0.1, Baso % (Auto) 0.2, Neut # (Auto) 14.0 H, Lymph # (Auto) 0.8, Bulloch # (Auto) 1.3 H, Eos # (Auto) 0.0, Baso # (Auto) 0.0, Magnesium 1.4 L, Plasma/Serum Alcohol < 10 11/23/24 14:13: VBG pH 7.44 H, VBG pCO2 34.2 L, VBG pO2 111.3 H, VBG HCO3 23.2, VBG Total CO2 24.2, VBG O2 Saturation 98.4 H, VBG Base Excess -0.8, VBG Lactic Acid 3.6 H 11/23/24 14:43: PT 12.0, INR 1.09, APTT 24.0, Sodium 129 L, Potassium 3.9, Chloride 94 L, Carbon Dioxide 27, Anion Gap 11.9, BUN 17, Creatinine 0.70, Estimated Creat Clear 121, Estimated GFR 112, Est GFR ( Amer) 135, Glucose 138 H, Calcium 9.5, Total Bilirubin 0.9, AST 42, ALT 49, Alkaline Phosphatase 64, Troponin I < 0.01, Total Protein 7.3, Albumin 3.7, Globulin 3.6 H, Albumin/Globulin Ratio 1.0 L, Triglycerides 258 H, Cholesterol 164, LDL Cholesterol Direct 75.06 L, VLDL Cholesterol 52 H, HDL Cholesterol 49, Cholesterol/HDL Ratio 3.3 Orders (Tests/Meds): ED MEDICATIONS Generic Name Dose Route Start Last Admin Trade Name Freq PRN Reason Stop Dose Admin Acetaminophen 650 mg 11/23/24 15:53 Acetaminophen 325mg Tab PO 12/23/24 15:52 Q4HP PRN Fever or Mild Pain (1-3) Atorvastatin Calcium 20 mg 11/23/24 21:00 Atorvastatin 20mg Tablet PO 12/23/24 20:59 HS CRYSTAL Famotidine 20 mg 11/23/24 21:00 Famotidine 20mg Tablet PO 12/23/24 20:59 BID CRYSTAL Fluorouracil gm 11/23/24 18:00 Fluorouracil 5% Cream 40gm/Tube TP 12/23/24 17:59 BID PRN BLISTERS Folic Acid 1 mg 11/24/24 09:00 Folic Acid 1mg Tablet PO 12/24/24 08:59 DAILY CRYSTAL Gabapentin 300 mg 11/23/24 21:00 Gabapentin 300mg Capsule PO 12/23/24 20:59 BID CRYSTAL Heparin Sodium (Porcine) 5,000 unit 11/23/24 21:00 Heparin Sodium 5,000 Unit/Ml Vial SUBCUT 12/23/24 20:59 TID CRYSTAL Lactated Ringer's 1,000 mls @ 50 mls/hr 11/23/24 16:00 11/23/24 18:36 Lactated Ringer's 1000 Ml Bag IV 12/23/24 15:59 50 mls/hr .Q20H CRYSTAL Administration Piperacillin Sod/Tazobactam 50 mls @ 100 mls/hr 11/23/24 19:15 Sod 3.375 gm/ Sodium Chloride IV 12/03/24 19:14 Q6H CRYSTAL Methocarbamol 500 mg 11/23/24 18:00 Methocarbamol 500mg Tablet PO 12/23/24 17:59 Q8H PRN pain Miscellaneous 1 each 11/23/24 15:15 11/23/24 15:30 Vancomycin Consult Request NOTAPPLIC 12/23/24 15:14 1 each [facility] Administration Miscellaneous 1 each 11/23/24 19:15 Vancomycin Consult Request NOTAPPLIC 12/23/24 19:14 [facility] Ondansetron HCl 4 mg 11/23/24 15:53 Ondansetron 4mg/2ml Vial IV 12/23/24 15:52 Q8HP PRN Nausea Oxycodone/Acetaminophen 1 each 11/23/24 18:00 Oxycodone 10mg W/Apap 325mg Tablet PO 12/23/24 17:59 Q6H PRN pain Pantoprazole Sodium 40 mg 11/23/24 21:00 Pantoprazole 40mg Tablet PO 12/23/24 20:59 HS [facility] Pantoprazole Sodium 40 mg 11/23/24 21:00 Pantoprazole 40mg Tablet PO 12/23/24 20:59 BID [facility] Prednisone 10 mg 11/24/24 09:00 Prednisone 5mg Tab PO 12/24/24 08:59 DAILY [facility] Sodium Chloride 10 ml 11/23/24 14:12 Sodium Chloride 0.9% 10ml Flush Syringe IV 12/23/24 14:11 NEEDED PRN Maintain IV Site Sodium Chloride 10 ml 11/23/24 15:53 Sodium Chloride 0.9% 10ml Flush Syringe IV 12/23/24 15:52 NEEDED PRN Maintain IV Site Zolpidem Tartrate 10 mg 11/23/24 21:00 Zolpidem Tartrate 10 Mg Tablet PO 12/23/24 20:59 HS [facility] Discontinued Medications Generic Name Dose Route Start Last Admin Trade Name Freq PRN Reason Stop Dose Admin Acetaminophen 1,000 mg 11/23/24 15:17 11/23/24 16:24 Acetaminophen 1,000mg/100ml Vial IV 11/23/24 15:18 1,000 mg ONCE ONE Administration Sodium Chloride 1,000 mls @ 999 mls/hr 11/23/24 14:28 11/23/24 14:30 Sod Chlor 0.9% 1000ml Bag IV 11/23/24 15:28 Not Given .Q1H1M ONE Sodium Chloride 2,400 mls @ 1,200 mls/hr 11/23/24 14:30 11/23/24 14:56 Sod Chlor 0.9% 1000ml Bag 30 ml/kg infuse over 2 hr (2400 ml) 11/23/24 16:29 1,200 mls/hr IV Administration .Q2H ONE Cefepime HCl 1 gm/ Sodium 50 mls @ 100 mls/hr 11/23/24 15:08 11/23/24 16:48 Chloride IV 11/23/24 15:09 100 mls/hr ONCE ONE Administration Vancomycin HCl 2,000 mg/ 250 mls @ 125 mls/hr 11/23/24 15:15 11/23/24 15:41 Sodium Chloride IV 11/23/24 17:14 125 mls/hr ONCE ONE Administration Iopamidol 80 ml 11/23/24 14:16 11/23/24 14:17 Iopamidol-370 (76%);100ml Bottle IV 11/23/24 14:17 80 ml ONCE ONE Administration Sodium Chloride 50 ml 11/23/24 14:16 11/23/24 14:17 0.9 % Sodium Chloride 50 Ml Vial IV 11/23/24 14:17 50 ml ONCE ONE Administration Sodium Chloride 10 ml 11/23/24 14:16 11/23/24 14:17 Sodium Chloride 0.9% 10ml Syr (Rad Only) IV 11/23/24 14:17 10 ml ONCE ONE Administration ORDERS Category Date Time Status CT angio head Stat Cat Scan 11/23/24 14:[address] angio neck Stat Cat Scan 11/23/24 14:[address] head/brain wo con Stat Cat Scan 11/23/24 14:13 Completed CXR --portable [XR chest portable] Stat Exams 11/23/24 14:13 Completed Activated Partial Thrombo Time Stat Lab 11/23/24 14:43 Completed Basic Metabolic Panel AMLAB Lab 11/24/24 06:00 Ordered Basic Metabolic Panel AMLAB Lab 11/25/24 06:00 Ordered Basic Metabolic Panel AMLAB Lab 11/26/24 06:00 Ordered Complete Blood Count Auto Diff AMLAB Lab 11/24/24 06:00 Ordered Complete Blood Count Auto Diff AMLAB Lab 11/25/24 06:00 Ordered Complete Blood Count Auto Diff AMLAB Lab 11/26/24 06:00 Ordered Complete Blood Count Auto Diff Stat Lab 11/23/24 14:10 Completed Comprehensive Metabolic Panel Stat Lab 11/23/24 14:43 Completed Drug Screen,Urine Stat Lab 11/23/24 17:36 Completed Ethyl Alcohol Stat Lab 11/23/24 14:10 Completed Lactic Acid Stat Lab 11/23/24 14:00 Completed Lipid Panel Stat Lab 11/23/24 14:43 Completed Magnesium Stat Lab 11/23/24 14:10 Completed Prothrombin Time INR Stat Lab 11/23/24 14:43 Completed Troponin I Q3H Lab 11/23/24 17:50 Completed Troponin I Q3H Lab 11/23/24 19:53 Received Troponin I Stat Lab 11/23/24 14:43 Completed Urinalysis and Microscopic Stat Lab 11/23/24 17:36 Completed Blood Culture Stat Micro 11/23/24 14:49 Received Urine Culture Stat Micro 11/23/24 17:36 Received VBG [Venous Blood Gas] Stat RT 11/23/24 14:13 Completed Medical Decision Narrative: In summary, patient is a 69-year-old male with PMHx RA, interstitial lung disease, immunosuppression who presents to the ED with decreased level of consciousness via EMS. Patient's son present and states that he went to check on the patient around 10 AM, it appears he was sitting at the kitchen table taking his medications when he was kind of slumped over at the table. He states that the patient appeared to be confused, he called EMS and was brought to the ED. Patient's son states that he took his methotrexate injection this morning. Reports that he has a last known normal was last night at 11:30 PM when he called him. Upon initial evaluation patient is slumped over on the stretcher, alert. Staff called stroke alert and patient was immediately taken to CT scan. He is alert oriented to place, name and date of . He answers to voice. After he is done talking he hangs his head down again and appears to be sleeping. He is tachycardic, tachypneic, febrile. Differential diagnosis include stroke, hemorrhage, sepsis, drug use, intoxication, medication overuse, among others. CT and CTAs unremarkable per final read. My informal interpretation of the chest x-ray appears to be a multilobular pneumonia. CBC remarkable for WBC 16.2, stable H&H. CMP remarkable for sodium of 129, glucose 138, lactate 2.7. pH 7.44, CO2 34.2. Dx sepsis & PNA. Started vancomycin and cefepime, patient has received sepsis IV fluid bolus. Upon reassessment, patient is sitting up in bed, alert and oriented. He is mentating well and conversational at this time. I updated him that he has pneumonia which we will admit him to the hospital for. Patient was accepted by Dr. Pacheco. I was consulted by the HARVINDER, and we discussed the complexity of the problems being addressed. I approve the treatment and management plan for this patient's care in the emergency department, thus performing a substantive portion of the medical decision making. Gene Mejía MD Critical Care <Luna Sousa APRN - Last Filed: 11/23/24 18:06> Critical Care Time Critical Care Time: No
--- NOTE | 2024-11-23 15:18 | PC.NURSE ---
house made aware of bed admission sepsis r/t PNA
[2024-11-23 15:23] LABS: Magnesium 1.4 mg/dl (1.6-2.3)
[2024-11-23 15:24] LABS: Troponin I < 0.01 ng/ml (0.00-0.034)
[2024-11-23] MEDS: VANCOMYCIN CONSULT REQUEST 1 EACH NOTAPPLIC (15:30)
[2024-11-23] MEDS: VANCOMYCIN HCL 2,000 MG in 0.9 % SODIUM CHLORIDE 250 ML 125 MG IV (15:41)
--- NOTE | 2024-11-23 16:00 | EXP.HP ---
History of Present Illness *Admission Date: 11/23/24 *Reason for visit:: SOB *History of present illness: Patient is a 69-year-old male with past medical history of rheumatoid arthritis immunosuppression, interstitial lung disease, pulmonary fibrosis PTSD who presents to the hospital due to generalized weakness, patient was found lethargic at home and EMS was called patient was brought to the hospital, patient was found to have temp of 102. Patient was initially stroke alerted which was ruled out, patient was found to be positive for sepsis pneumonia and admitted for further management. [facility] Disclaimer: The information contained in this section may have been updated after the patient was seen, as this information can be updated by other users. Medical History Immunosuppression Asthma ILD (interstitial lung disease) Dyspnea on exertion Pulmonary fibrosis, unspecified Rheumatoid arthritis History of 2019 novel coronavirus disease (COVID-19) Asthma Surgical History History of surgery on lower extremity Family History (Updated 11/23/24 @ 16:58 by Dagmar Thorne RN) Other Diabetes Family history of cancer Social History (Updated 11/23/24 @ 17:00 by Dagmar Thorne RN) Smoking Status: Never smoker second hand exposure: No alcohol intake: never substance use type: denies use current occupational status: retired Travel in the last 8 weeks?: None household members: other housing: house current occupation: [employer] current occupational exposures/hazards: No caffeine: Yes Have you lived/traveled outside US in past 30 days?: No Contact w/someone who lives/traveled outside US past 30 days?: No Exposure to someone with infectious disease in past 14 days?: No Do you have a fever (greater than 100.4 F or 38 C)?: No Have you tested positive for COVID-19?: No Exposed to someone with COVID-19 in past 14 days?: No Do you have a sore throat?: No Do you have a cough?: No Do you have any weakness?: No Are you experiencing any nausea/vomitting?: No Do you have any diarrhea?: No Are you experiencing any unusual bleeding?: No Do you have any muscle aches/pain?: No Do you have any abdominal pain?: No Are you experiencing loss of taste or smell?: No Other Medical History Have you received the Flu Vaccine for this season: No Have you received the Pneumonia Vaccine: Yes Review of Systems Review of Systems Review of systems:: pertinent systems reviewed and negative unless documented below Meds Home Medications and Allergies Home Medications ?Medication ?Instructions ?Recorded ?Confirmed ?Type methotrexate sodium 25 mg/mL 25 mg IM WEEKLY 07/10/23 11/23/24 History injection solution omeprazole 40 mg capsule,delayed 40 mg PO DAILY 01/31/24 11/23/24 History release prednisone 5 mg tablet 10 mg PO DAILY 01/31/24 11/23/24 History sulfasalazine 500 mg tablet 500 mg PO DAILY 05/13/24 11/23/24 History pantoprazole 40 mg tablet,delayed 40 mg PO BID #180 tabs 07/10/24 11/23/24 Rx release (Protonix) famotidine 20 mg tablet (Pepcid) 20 mg PO BID #180 tabs 10/09/24 11/23/24 Rx folic acid 1 mg tablet 1 mg PO DAILY #90 tabs 10/09/24 11/23/24 Rx methocarbamol 500 mg tablet 500 mg PO Q8H PRN pain #10 tabs 10/29/24 11/23/24 Rx oxycodone-acetaminophen 10 mg-325 1 tab PO Q6H PRN pain #120 tabs 11/11/24 11/23/24 Rx mg tablet (Percocet) zolpidem 10 mg tablet (Ambien) 10 mg PO HS #30 tabs 11/11/24 11/23/24 Rx atorvastatin 20 mg tablet 20 mg PO HS 11/23/24 11/23/24 History fluorouracil 5 % topical cream 1 applic topical BID PRN BLISTERS 11/23/24 11/23/24 History gabapentin 300 mg capsule 300 mg PO BID 11/23/24 11/23/24 History metformin 500 mg tablet 500 mg PO BID 11/23/24 11/23/24 History New Prescriptions to Start Prescriptions: Allergies Allergy/AdvReac Type Severity Reaction Status Date / Time No Known Allergies Allergy Verified 11/11/24 13:53 Exam Data for Last 24 hours Vital signs and Labs for Last 24 Hours: Temp Pulse Resp BP Pulse Ox O2 Del Method 100.9 F H 121 H 25 H 119/64 95 Room Air 11/23/24 14:02 11/23/24 14:31 11/23/24 14:31 11/23/24 14:31 11/23/24 14:31 11/23/24 14:02 Laboratory Results - last 24 hr 11/23/24 14:00: Lactate 2.7 H 11/23/24 14:10: WBC 16.2 H, RBC 4.38 L, Hgb 14.4, Hct 41.7 L, MCV 95.2 H, MCH 32.9 H, MCHC 34.5, RDW 15.1, Plt Count 192, MPV 10.3, Neut % (Auto) 86.4 H, Lymph % (Auto) 4.8 L, [place] % (Auto) 7.9, Eos % (Auto) 0.1, Baso % (Auto) 0.2, Neut # (Auto) 14.0 H, Lymph # (Auto) 0.8, [place] # (Auto) 1.3 H, Eos # (Auto) 0.0, Baso # (Auto) 0.0, Magnesium 1.4 L, Plasma/Serum Alcohol < 10 11/23/24 14:13: VBG pH 7.44 H, VBG pCO2 34.2 L, VBG pO2 111.3 H, VBG HCO3 23.2, VBG Total CO2 24.2, VBG O2 Saturation 98.4 H, VBG Base Excess -0.8, VBG Lactic Acid 3.6 H 11/23/24 14:43: PT 12.0, INR 1.09, APTT 24.0, Sodium 129 L, Potassium 3.9, Chloride 94 L, Carbon Dioxide 27, Anion Gap 11.9, BUN 17, Creatinine 0.70, Estimated Creat Clear 121, Estimated GFR 112, Est GFR ( Amer) 135, Glucose 138 H, Calcium 9.5, Total Bilirubin 0.9, AST 42, ALT 49, Alkaline Phosphatase 64, Troponin I < 0.01, Total Protein 7.3, Albumin 3.7, Globulin 3.6 H, Albumin/Globulin Ratio 1.0 L, Triglycerides 258 H, Cholesterol 164, LDL Cholesterol Direct 75.06 L, VLDL Cholesterol 52 H, HDL Cholesterol 49, Cholesterol/HDL Ratio 3.3 I & O for Last 24 hours: Intake & Output 11/20/24 11/21/24 11/22/24 11/23/24 23:59 23:59 23:59 23:59 Weight 122.47 kg Constitutional Constitutional: no acute distress *Routine HEENT Exam Head: Present normocephalic Eye: Present EOMI and PERRL ENT: Present mucous membranes moist *Routine Neck Exam Neck: Present supple; Absent lymphadenopathy *Routine Respiratory Exam Respiratory: Present decreased breath sounds *Routine Cardiovascular Exam Cardiovascular: Present RRR *Routine Abdominal Exam Abdominal: Present soft and normoactive bowel sounds; Absent tenderness *Routine Rectal Exam Rectal:: deferred *Routine Genitalia Exam Genitalia:: deferred *Routine Extremities Exam Extremities: Absent cyanosis, clubbing or edema *Routine Skin Exam Skin: Present warm; Absent rash *Routine Neurological Exam Neurological: Present alert and oriented X3 Assessment and Plan *Assessment and plan (1) Sepsis: Status: Acute Category: Medical Code(s): A41.9 - Sepsis, unspecified organism (2) Immunosuppression: Status: Acute Category: Medical Code(s): D84.9 - Immunodeficiency, unspecified (3) Dyspnea on exertion: Status: Chronic Category: Medical Code(s): R06.09 - Other forms of dyspnea (4) PNA (pneumonia): Status: Acute Category: Medical Code(s): J18.9 - Pneumonia, unspecified organism Plan Patient is a 69-year-old male with past medical history of rheumatoid arthritis immunosuppression, interstitial lung disease, pulmonary fibrosis PTSD who presents to the hospital due to generalized weakness, patient was found lethargic at home and EMS was called patient was brought to the hospital, patient was found to have temp of 102. Patient was initially stroke alerted which was ruled out, patient was found to be positive for sepsis pneumonia and admitted for further management. Assessment and plan Sepsis present on admission Pneumonia Immunosuppression History of rheumatoid arthritis, pulmonary fibrosis, interstitial lung disease Lactic acidosis Start IV vancomycin,, Zosyn Check blood cultures, procalcitonin Continue oxygen supplementation Continue IV fluids Consult pulmonary Monitor lactic acid Chronic medical conditions Rheumatoid arthritis Hyperlipidemia Hypertension PTSD Hold immunosuppressants for now, patient takes methotrexate Continue home prednisone to prevent addisonian crisis Resume home statin DVT prophylaxis-subcutaneous heparin
--- NOTE | 2024-11-23 16:20 | PC.NURSE ---
report called to chau on second floor
[2024-11-23] MEDS: ACETAMINOPHEN 1,000MG/100ML VIAL 1000 MG IV (16:24)
--- NOTE | 2024-11-23 16:26 | PC.NURSE ---
pt transferred to floor via stretcher
[2024-11-23] MEDS: CEFEPIME HCL 1 GM in 0.9 % SODIUM CHLORIDE 50 ML IV (16:48)
--- NOTE | 2024-11-23 17:24 | PC.WOUNDNOTE ---
skin tear noted to lfa
[2024-11-23 17:53] LABS: Microscopic, Urine URINE MICROSCOPIC (MICROSCOPIC)
[2024-11-23 17:55] LABS: Bilirubin,Urine Negative (Negative); Color,Urine YELLOW (Yellow); Glucose,Urine (UA) Negative (Negative); Ketones,Urine Negative (Negative); Leukocyte Esterase,Urine Negative (Negative); PH,Urine 6.5 (5.0-8.5); Protein,Urine TRACE (Negative); Specific Gravity, Urine <= 1.005 (1.005-1.030); Urobilinogen,Urine 0.2 EU/dl (0.2)
[2024-11-23 18:16] LABS: Barbiturates Screen,Urine Negative ng/ml (<200)
[2024-11-23 18:17] LABS: Amphetamine/Metha Screen,Urine Negative ng/ml (<1000); Benzodiazepines Screen,Urine Negative ng/ml (<200)
[2024-11-23 18:19] LABS: Methadone Screen,Urine Negative ng/ml (<300)
[2024-11-23 18:20] LABS: Opiate Screen,Urine Negative ng/ml (<300); Phencyclidine Screen,Urine Negative ng/ml (<25)
[2024-11-23 18:29] LABS: Troponin I < 0.01 ng/ml (0.00-0.034)
[2024-11-23 18:36] LABS: Reflex Lactic Add Lactic Reflex
[2024-11-23] MEDS: LACTATED RINGERS 1000ML 1,000 ML 50 ML IV (18:36)
[2024-11-23] MEDS: ZOLPIDEM TARTRATE 10 MG TABLET PO (20:07)
[2024-11-23] MEDS: FAMOTIDINE 20MG TABLET 20 MG PO (20:07)
[2024-11-23] MEDS: GABAPENTIN 300MG CAPSULE 300 MG PO (20:07)
[2024-11-23] MEDS: PANTOPRAZOLE 40MG TABLET 40 MG PO (20:07)
[2024-11-23] MEDS: ATORVASTATIN 20MG TABLET 20 MG PO (20:07)
[2024-11-23] MEDS: OXYCODONE 10MG W/APAP 325MG TABLET 1 EACH PO (20:07)
[2024-11-23] MEDS: PIPERACILLIN/TAZO 3.375 GM in 0.9 % SODIUM CHLORIDE 50 ML IV (20:08)
[2024-11-23] MEDS: HEPARIN SODIUM 5,000 UNIT/ML VIAL 5000 UNIT SUBCUT (20:08)
[2024-11-23 20:18] LABS: Lactic Acid Follow Up (RFLX 1) 2.3 mmol/L (0.7-2.1)
[2024-11-23 20:26] LABS: Troponin I < 0.01 ng/ml (0.00-0.034)
[2024-11-23 22:00] LABS: Reflex Lactic (2 hrs) Add Lactic Reflex
[2024-11-24] VITALS (10 sets, daily range): BP systolic 116–155; BP diastolic 54–83; PULSE 68–103; RESP 12–20; TEMP 36.4–39; O2SAT 96–100; BMI 27.7
[2024-11-24] MEDS: ACETAMINOPHEN 325MG TAB 650 MG PO ×2 (01:37→09:56)
--- NOTE | 2024-11-24 01:51 | PC.NURSE ---
Pt felt warm hot to touch when nurse came in to check on pt. Temperature orally was 102.2. Charge nurse notified and cooling protocol was initiated. Rectal temp was collected and it read 102.8. Pt was given Tylenol PO. Will continue to monitor and reassess after 30 min.
[2024-11-24] MEDS: PIPERACILLIN/TAZO 3.375 GM in 0.9 % SODIUM CHLORIDE 50 ML IV ×4 (02:03→18:15)
--- NOTE | 2024-11-24 02:12 | PC.NURSE ---
Provider notified. Pt's temp upon reassessment 30 min later was still 102.2. No new orders at this time, v/s, pt ox4. will reassess in an hour.
--- NOTE | 2024-11-24 06:21 | PC.NURSE ---
Pt's fever subsided. v/s, ox4, RA. Pt has had c/o loose stools due to ABX. Pt c/o pain, treated per JUN. Plan of care ongoing.
[2024-11-24 07:34] LABS: Hematocrit 39.9 % (42.0-52.0); Hemoglobin 13.0 g/dL (14.1-18.0); Immature Granulocytes % 0.7 %; Mean Corpuscular HGB Conc 32.6 g/dL (31.8-35.4); Mean Corpuscular Hemoglobin 31.9 pg (27.0-31.2); Mean Corpuscular Volume 98.0 fl (80-94); Nucleated Red Blood Cells % 0 %; Platelet Count 127 K/mm3 (142-424); Red Blood Count 4.07 M/mm3 (4.60-6.20); Red Cell Distribution Width-SD 54.9 fL; White Blood Count 13.8 K/mm3 (4.8-10.8)
[2024-11-24 07:43] LABS: Chloride 103 mmol/L (98-107); Sodium 130 mmol/L (136-145)
[2024-11-24 07:44] LABS: Lactic Acid Follow up (RFLX 2) 1.7 mmol/L (0.7-2.1); Potassium 3.5 mmoL/L (3.5-5.1)
[2024-11-24 07:46] LABS: Blood Urea Nitrogen 10 mg/dl (9-20); Creatinine Clearance Estimated 94 mL/min (50-200); Creatinine,Serum 0.60 mg/dl (0.66-1.25); Estimated Glomerular Filt Rate 134 ml/min (>60); GFR (African American) 162 ML/MIN (>60)
[2024-11-24 07:47] LABS: Anion Gap 9.5 mEq/L (5-15); Calcium 8.5 mg/dl (8.4-10.2); Carbon Dioxide 21 mmol/L (22.0-30.0); Glucose 149 mg/dl (74-100)
--- NOTE | 2024-11-24 07:56 | EXP.PHA.CONS ---
Pharmacy Consult Date: 11/24/24 Time: 07:57 Referring provider: DR WORKMAN Reason for Consult:: VANCOMYCIN DOSING CONSULT Allergies Allergy/AdvReac Type Severity Reaction Status Date / Time No Known Allergies Allergy Verified 11/11/24 13:53 Home Medications ?Medication ?Instructions ?Recorded ?Confirmed ?Type methotrexate sodium 25 mg/mL 25 mg IM WEEKLY 07/10/23 11/23/24 History injection solution omeprazole 40 mg capsule,delayed 40 mg PO DAILY 01/31/24 11/23/24 History release prednisone 5 mg tablet 10 mg PO DAILY 01/31/24 11/23/24 History sulfasalazine 500 mg tablet 500 mg PO DAILY 05/13/24 11/23/24 History pantoprazole 40 mg tablet,delayed 40 mg PO BID #180 tabs 07/10/24 11/23/24 Rx release (Protonix) famotidine 20 mg tablet (Pepcid) 20 mg PO BID #180 tabs 10/09/24 11/23/24 Rx folic acid 1 mg tablet 1 mg PO DAILY #90 tabs 10/09/24 11/23/24 Rx methocarbamol 500 mg tablet 500 mg PO Q8H PRN pain #10 tabs 10/29/24 11/23/24 Rx oxycodone-acetaminophen 10 mg-325 1 tab PO Q6H PRN pain #120 tabs 11/11/24 11/23/24 Rx mg tablet (Percocet) zolpidem 10 mg tablet (Ambien) 10 mg PO HS #30 tabs 11/11/24 11/23/24 Rx atorvastatin 20 mg tablet 20 mg PO HS 11/23/24 11/23/24 History fluorouracil 5 % topical cream 1 applic topical BID PRN BLISTERS 11/23/24 11/23/24 History gabapentin 300 mg capsule 300 mg PO BID 11/23/24 11/23/24 History metformin 500 mg tablet 500 mg PO BID 11/23/24 11/23/24 History New Prescriptions to Start Prescriptions: Height: 1.85 m Weight: 94.95 kg Laboratory Results:: Laboratory Results - last 24 hr 11/23/24 14:00: Lactate 2.7 H 11/23/24 14:10: WBC 16.2 H, RBC 4.38 L, Hgb 14.4, Hct 41.7 L, MCV 95.2 H, MCH 32.9 H, MCHC 34.5, RDW 15.1, Plt Count 192, MPV 10.3, Neut % (Auto) 86.4 H, Lymph % (Auto) 4.8 L, [place] % (Auto) 7.9, Eos % (Auto) 0.1, Baso % (Auto) 0.2, Neut # (Auto) 14.0 H, Lymph # (Auto) 0.8, [place] # (Auto) 1.3 H, Eos # (Auto) 0.0, Baso # (Auto) 0.0, Magnesium 1.4 L, Plasma/Serum Alcohol < 10 11/23/24 14:13: VBG pH 7.44 H, VBG pCO2 34.2 L, VBG pO2 111.3 H, VBG HCO3 23.2, VBG Total CO2 24.2, VBG O2 Saturation 98.4 H, VBG Base Excess -0.8, VBG Lactic Acid 3.6 H 11/23/24 14:43: PT 12.0, INR 1.09, APTT 24.0, Sodium 129 L, Potassium 3.9, Chloride 94 L, Carbon Dioxide 27, Anion Gap 11.9, BUN 17, Creatinine 0.70, Estimated Creat Clear 121, Estimated GFR 112, Est GFR ( Amer) 135, Glucose 138 H, Calcium 9.5, Total Bilirubin 0.9, AST 42, ALT 49, Alkaline Phosphatase 64, Troponin I < 0.01, Total Protein 7.3, Albumin 3.7, Globulin 3.6 H, Albumin/Globulin Ratio 1.0 L, Triglycerides 258 H, Cholesterol 164, LDL Cholesterol Direct 75.06 L, VLDL Cholesterol 52 H, HDL Cholesterol 49, Cholesterol/HDL Ratio 3.3 11/23/24 17:36: Urine Color Yellow, Urine Appearance Clear, Urine pH 6.5, Ur Specific [place] <= 1.005, Urine Protein Trace, Urine Glucose (UA) Negative, Urine Ketones Negative, Urine Blood Negative, Urine Nitrate Positive A, Urine Bilirubin Negative, Urine Urobilinogen 0.2, Ur Leukocyte Esterase Negative, Urine RBC None, Urine WBC 3-5, Ur Squamous Epith Cells None, Urine Bacteria None, Urine Opiates Screen Negative, Urine Methadone Screen Negative, Ur Barbituates Screen Negative, Ur Phencyclidine Scrn Negative, Ur Amphetamines Screen Negative, U Benzodiazepines Scrn Negative, Urine Cocaine Screen Negative, U Marijuana (THC) Screen Negative 11/23/24 17:50: Troponin I < 0.01 11/23/24 19:53: Lactate 2.3 H, Troponin I < 0.01 11/24/24 07:10: WBC 13.8 H, RBC 4.07 L, Hgb 13.0 L, Hct 39.9 L, MCV 98.0 H, MCH 31.9 H, MCHC 32.6, RDW 15.3, Plt Count 127 L D, MPV 9.4, Neut % (Auto) 88.7 H, Lymph % (Auto) 4.0 L, [place] % (Auto) 6.2, Eos % (Auto) 0.1, Baso % (Auto) 0.3, Neut # (Auto) 12.3 H, Lymph # (Auto) 0.6 L, [place] # (Auto) 0.9, Eos # (Auto) 0.0, Baso # (Auto) 0.0, Sodium 130 L, Potassium 3.5, Chloride 103, Carbon Dioxide 21 L, Anion Gap 9.5, BUN 10 D, Creatinine 0.60 L, Estimated Creat Clear 94, Estimated GFR 134, Est GFR ( Amer) 162, Glucose 149 H, Lactate 1.7, Calcium 8.5 Medical History: Medical History (Updated 11/23/24 @ 16:34 by Justine Cassidy RN) Immunosuppression Asthma ILD (interstitial lung disease) Dyspnea on exertion Pulmonary fibrosis, unspecified Rheumatoid arthritis History of 2019 novel coronavirus disease (COVID-19) Asthma Assessment and Plan Assessment and plan all Dx Assessment and Plan for all problems:: Pharmacokinetic dosing service Objective: Age: 69 yo Serum creatinine: 1 mg/dL Height: 72.8 Inches Weight (kg): 94.95 Diagnosis: SEPSIS/PNEUMONIA Assessment: IBW (kg): 79.44 Dosing wt(kg): 94.95 Estimated Creatinine clearance (ml/min): 78.3 CRCL method: Cockcroft and Gault using ibw(default). Drug selected: Vancomycin Vd (liters): 71.2 (factor used: 0.75 L/kg) Yair (hr-1): 0.069 Half life (hrs): 10.05 CLvanco=?? 4.913 L/hr Recommended dose: 2000 mg Interval: 18 hrs Infusion time (hrs): 2.0 Predicted peak (mcg/mL): 36.9 Predicted trough (mcg/mL): 12.23 Total body weight is being used for vancomycin dosing. Recommendations: Give Vancomycin 2000 mg q 18 hrs with an expected Cpeak of 36.9 mcg/ml and an expected Ctrough of 12.23 mcg/ml AUC 0-24 /GIL Data: GIL 0.5 mcg/mL:?? AUC/GIL:? 1085.6 GIL 1.0 mcg/mL:?? AUC/GIL:? 542.8 --------- GIL 1.5 mcg/mL:?? AUC/GIL:? 361.9 GIL 2.0 mcg/mL:?? AUC/GIL:? 271.4 Thank you for the consult
[2024-11-24] MEDS: FAMOTIDINE 20MG TABLET 20 MG PO ×2 (09:12→21:08)
[2024-11-24] MEDS: FOLIC ACID 1MG TABLET 1 MG PO (09:12)
[2024-11-24] MEDS: GABAPENTIN 300MG CAPSULE 300 MG PO ×2 (09:12→21:08)
[2024-11-24] MEDS: HEPARIN SODIUM 5,000 UNIT/ML VIAL 5000 UNIT SUBCUT ×3 (09:12→21:08)
[2024-11-24] MEDS: PANTOPRAZOLE 40MG TABLET 40 MG PO ×2 (09:12→21:08)
--- NOTE | 2024-11-24 09:43 | HMH.PHAINT1 ---
Pharmacy Intervention Comments: MEDICATION RECONCILIATION COMPLETE USING EXTERNAL PHARMACY FILL HISTORY, RECENT MD OFFICE VISIT NOTE, AND DARLENE REPORT.
[2024-11-24] MEDS: VANCOMYCIN HCL 2,000 MG in 0.9 % SODIUM CHLORIDE 250 ML 125 MG IV (11:49)
--- NOTE | 2024-11-24 16:04 | P.PN_ITS ---
Subjective *Date: 11/24/24 *Time: 16:04 Interval history: Patient is seen and evaluated at the bedside, patient denies chest pain shortness of breath nausea vomiting today. No new complaints. Patient had fever last night Exam Data for Last 24 hours Vital signs and Labs for Last 24 Hours: Temp Pulse Resp BP Pulse Ox O2 Del Method O2 Flow Rate 98.3 F 68 16 116/78 99 Room Air 2 11/24/24 12:00 11/24/24 12:00 11/24/24 12:00 11/24/24 12:00 11/24/24 12:00 11/24/24 15:00 11/24/24 03:00 Laboratory Results - last 24 hr 11/23/24 17:36: Urine Color Yellow, Urine Appearance Clear, Urine pH 6.5, Ur Specific [place] <= 1.005, Urine Protein Trace, Urine Glucose (UA) Negative, Urine Ketones Negative, Urine Blood Negative, Urine Nitrate Positive A, Urine Bilirubin Negative, Urine Urobilinogen 0.2, Ur Leukocyte Esterase Negative, Urine RBC None, Urine WBC 3-5, Ur Squamous Epith Cells None, Urine Bacteria None, Urine Opiates Screen Negative, Urine Methadone Screen Negative, Ur Barbituates Screen Negative, Ur Phencyclidine Scrn Negative, Ur Amphetamines Screen Negative, U Benzodiazepines Scrn Negative, Urine Cocaine Screen Negative, U Marijuana (THC) Screen Negative 11/23/24 17:50: Troponin I < 0.01 11/23/24 19:53: Lactate 2.3 H, Troponin I < 0.01 11/24/24 07:10: WBC 13.8 H, RBC 4.07 L, Hgb 13.0 L, Hct 39.9 L, MCV 98.0 H, MCH 31.9 H, MCHC 32.6, RDW 15.3, Plt Count 127 L D, MPV 9.4, Neut % (Auto) 88.7 H, Lymph % (Auto) 4.0 L, [place] % (Auto) 6.2, Eos % (Auto) 0.1, Baso % (Auto) 0.3, Neut # (Auto) 12.3 H, Lymph # (Auto) 0.6 L, [place] # (Auto) 0.9, Eos # (Auto) 0.0, Baso # (Auto) 0.0, Sodium 130 L, Potassium 3.5, Chloride 103, Carbon Dioxide 21 L, Anion Gap 9.5, BUN 10 D, Creatinine 0.60 L, Estimated Creat Clear 94, Estimated GFR 134, Est GFR ( Amer) 162, Glucose 149 H, Lactate 1.7, Calcium 8.5 I & O for Last 24 hours: Intake & Output 11/21/24 11/22/24 11/23/24 11/24/24 23:59 23:59 23:59 23:59 Intake Total 240 / 360 920 / 920 Output Total 750 / 750 400 / 400 Balance -510 / -390 520 / 520 Weight 124.851 kg 94.95 kg Microbiology Reports for the Last 24 Hours: Microbiology 11/23/24 14:49 Blood Blood Culture - Preliminary NO GROWTH AFTER 24 HOURS 11/23/24 14:43 Blood Blood Culture - Preliminary NO GROWTH AFTER 24 HOURS Constitutional Constitutional: no acute distress *Routine HEENT Exam Head: Present normocephalic Eye: Present EOMI and PERRL ENT: Present mucous membranes moist *Routine Neck Exam Neck: Present supple; Absent lymphadenopathy *Routine Respiratory Exam Respiratory: Present CTA bilaterally *Routine Cardiovascular Exam Cardiovascular: Present RRR *Routine Abdominal Exam Abdominal: Present soft and normoactive bowel sounds; Absent tenderness *Routine Extremities Exam Extremities: Absent cyanosis, clubbing or edema *Routine Skin Exam Skin: Present warm; Absent rash *Routine Neurological Exam Neurological: Present alert and oriented X3 Assessment and Plan *Assessment and plan (1) Sepsis: Status: Acute Category: Medical Code(s): A41.9 - Sepsis, unspecified organism (2) Immunosuppression: Status: Acute Category: Medical Code(s): D84.9 - Immunodeficiency, unspecified (3) Dyspnea on exertion: Status: Chronic Category: Medical Code(s): R06.09 - Other forms of dyspnea (4) PNA (pneumonia): Status: Acute Category: Medical Code(s): J18.9 - Pneumonia, unspecified organism Plan Patient is a 69-year-old male with past medical history of rheumatoid arthritis immunosuppression, interstitial lung disease, pulmonary fibrosis PTSD who presents to the hospital due to generalized weakness, patient was found lethargic at home and EMS was called patient was brought to the hospital, patient was found to have temp of 102. Patient was initially stroke alerted which was ruled out, patient was found to be positive for sepsis pneumonia and admitted for further management. Assessment and plan Sepsis present on admission Pneumonia Immunosuppression History of rheumatoid arthritis, pulmonary fibrosis, interstitial lung disease Lactic acidosis continue IV vancomycin,, Zosyn Check blood cultures - pending Continue oxygen supplementation Continue IV fluids Consult pulmonary, patient has interstitial lung disease, rheumatoid lung disease, pulmonary infiltrates likely due to pneumonia Chronic medical conditions Rheumatoid arthritis Hyperlipidemia Hypertension PTSD Hold immunosuppressants for now, patient takes methotrexate Continue home prednisone to prevent addisonian crisis Resume home statin DVT prophylaxis-subcutaneous heparin Likely discharge 1 to 2 days pending clinical improvement, at least 24 hours free from fevers
[2024-11-24] MEDS: OXYCODONE 10MG W/APAP 325MG TABLET 1 EACH PO ×2 (16:32→22:15)
--- NOTE | 2024-11-24 16:37 | PC.NURSE ---
Pt is A&OX4. Vital signs stable tolerating room air. IV abx infused per JUN. Pt complains of knee and ankle pain- medicated per JUN. Pt up with x1 assistance and walker to the bathroom. Pt sat up in chair this evening. Pt resting comfortably with no further needs voiced at this time. Bed alarm in place. Call light within reach.
[2024-11-24] MEDS: ATORVASTATIN 20MG TABLET 20 MG PO (21:08)
[2024-11-24] MEDS: ZOLPIDEM TARTRATE 10 MG TABLET PO (21:53)
[2024-11-25] VITALS: BP 100/53; PULSE 90; RESP 18; TEMP 37.5; O2SAT 92
[2024-11-25] MEDS: PIPERACILLIN/TAZO 3.375 GM in 0.9 % SODIUM CHLORIDE 50 ML IV ×2 (00:23→06:39)
[2024-11-25 04:00] VITALS: BP 133/71; PULSE 85; PULSE 95; RESP 20; TEMP 36.6; O2SAT 95; BMI 36.8
[2024-11-25] MEDS: VANCOMYCIN HCL 2,000 MG in 0.9 % SODIUM CHLORIDE 250 ML 125 MG IV (04:00)
--- NOTE | 2024-11-25 04:30 | PC.NURSE ---
Patient is alert and oriented x4. He was observed to be resting in bed with eyes closed, respirations even and unlabored on room air, and no apparent distress throughout the majority of the night. Patient continues to report having loose bowel movements since the initiation of antibiotic administrations. Remains afebrile thus far. Oxycodone was given this shift due to complaint of reported severe arthritis/joint pain. Mild swelling noted to bilateral legs and his right hand. Denies worsening weakness to extremities. Auscultation of his heart, lungs, and bowels within normal findings. Normal sinus rhythm on telemetry. Patient ambulates with standby assistance + use of walker in his room/to the bathroom without any difficulties. Scheduled medications were administered as appropriately per JUN. Skin tears noted to left upper extremity. Soft blood pressures noted. At this time, the patient is resting in bed without any further complaints. No new need thus far. Call light within reach.
[2024-11-25 06:33] LABS: Hematocrit 36.1 % (42.0-52.0); Hemoglobin 12.2 g/dL (14.1-18.0); Immature Granulocytes % 0.4 %; Mean Corpuscular HGB Conc 33.8 g/dL (31.8-35.4); Mean Corpuscular Hemoglobin 32.8 pg (27.0-31.2); Mean Corpuscular Volume 97.0 fl (80-94); Nucleated Red Blood Cells % 0 %; Platelet Count 132 K/mm3 (142-424); Red Blood Count 3.72 M/mm3 (4.60-6.20); Red Cell Distribution Width-SD 53.1 fL; White Blood Count 9.5 K/mm3 (4.8-10.8)
[2024-11-25 06:55] LABS: Chloride 103 mmol/L (98-107); Potassium 3.5 mmoL/L (3.5-5.1); Sodium 131 mmol/L (136-145)
[2024-11-25 06:58] LABS: Anion Gap 7.5 mEq/L (5-15); Blood Urea Nitrogen 12 mg/dl (9-20); Carbon Dioxide 24 mmol/L (22.0-30.0); Creatinine Clearance Estimated 124 mL/min (50-200); Creatinine,Serum 0.90 mg/dl (0.66-1.25); Estimated Glomerular Filt Rate 84 ml/min (>60); GFR (African American) 101 ML/MIN (>60)
[2024-11-25 06:59] LABS: Calcium 8.5 mg/dl (8.4-10.2); Glucose 119 mg/dl (74-100)
[2024-11-25 07:52] VITALS: BP 121/69; PULSE 97; RESP 18; TEMP 36.8; O2SAT 94
--- OUTSIDE RECORDS SUMMARY | 2024-11-25 07:57 | XMS_ITS | Encounter Summary ---
Author Organization [facility] Address [address] [id number] Care Team Providers Care Vehicle Mechanic Name Role Phone Paolo Colunga MD Primary Care Provider [phone] Encounter Details Date Type Department Care Team (Late st Contact Info) Description 12/22/2023 [facility] [address] [place] [address] Paolo Colunga MD [address] [place] [address] Social History Tobacco Use Types Packs/Day Years [...] documented as of this encounter Care Teams Vehicle Mechanic Relationship Specialty Start Date End Date Paolo Colunga MD PCP - General 08/02/21 documented as of this encounter
--- OUTSIDE RECORDS SUMMARY | 2024-11-25 07:57 | XMS_ITS | Clinical Summary ---
Author Organization [facility] Address [address] [facility] [place] [address] Phone Care Team Providers Care Graduate Internship Name Role Phone Kimberly Andrews MD Primary Care Provider [phone] Allergies No known active allergies Medications omeprazole [...] EDT Office Visit [facility] [address] [place] [address] Ryan Lockett MD Cough, unspecified type (Primary Dx); SOB (shortness of breath); UIP (usual interstitial pneumonitis) ([facility]); Seropositive rheumatoid arthritis of multiple sites ([facility]) 08/26/2024 Travel from Last 3 Months Surgical History Surgery Date Site/Laterality Comments ELBOW SURGERY right elbow surgery due to work injury-elbow was crushed. FINGER SURGERY left index finger surgery due to blood poisoning. CHOLECYSTECTOMY 2018 polyp Medical History Medical History Date Comments Arthritis Bipolar 1 disorder ([facility]) bipolar manic depressive. KS (myocardial infarction) ([facility]) patient denied any heart attack at [...] [place] [address] Ryan Lockett MD [address] [address] 02/26/2025 1:00 PM EST Appointment [facility] [address] [place] [address] Ryan Lockett MD [address] [phone] 02/28/2025 1:00 PM EST Office Visit [facility] [address] [phone] Ryan Lockett MD [address] [address] Health Maintenance Due Date Last [...] KRUSE MR AALIYAH KRUSE MR Care Teams Graduate Internship Relationship Specialty Start Date End Date Kimberly Andrews MD [address] [place] [address] PCP - General Family Medicine 08/29/11
--- OUTSIDE RECORDS SUMMARY | 2024-11-25 07:57 | XMS_ITS | Clinical Summary ---
Author Organization [facility] Address [address] [place] [address] Care Team Providers Care Snake Charmer Name Role Phone Paolo Colunga MD Primary Care Provider Allergies No known active allergies Medications atorvastatin [...] Health Maintenance Due Date Last Done Comments [facility] Annual Wellness (AWV) 1955 Y-Infant/Child/Adol SDOH Screenings 1955 [id number] Vaccine (#1) 02/08/1960 [facility]- SDOH Screenings 1973 [...] Antigen Negative Negative 09/14/2021 3:39 PM EDT [facility] Hepatitis C Antibody Negative Negative 09/14/2021 3:39 PM EDT [facility] Hepatitis A Antibody IgM Negative Negative 09/14/2021 3:39 PM EDT [facility] Hepatitis B Core Antibody IgM Negative Negative 09/14/2021 3:39 PM EDT [facility] Blood Venous blood specimen / Unknown Venipuncture / Unknown 09/14/2021 1:31 PM EDT 09/14/2021 1:31 PM EDT us Marilynn Segundo Hernandez FLOW MACHINE OPERATOR LAB BLOOD ORDERABLES Imelda taveras Result [facility] [address] [place] [address] from Last 3 Months or Most Recently Relevant to Health Maintenance Insurance [employer] MEDICARE Care Teams Snake Charmer Relationship Specialty Start Date End Date Paolo Colunga MD PCP - General 08/02/21
--- OUTSIDE RECORDS SUMMARY | 2024-11-25 07:57 | XMS_ITS | Encounter Summary ---
Author Organization [facility] Address [address] [place] [address] Care Team Providers Care Broadcast Supervisor Name Role Phone Paolo Colunga MD Primary Care Provider [phone] Reason for Referral * Consultation (Routine) - Closed Specialty Diagnoses / Procedures Referred By Contac t Referred To Contact Rheumatology Diagnoses Elevated rheumatoid factor Elevated sed rate Elevated C-reactive protein (CRP) Paolo Colunga MD Phone: tel: fax: Referral ID Status Reason Start Date Expiration Date V isits Requested Visits Authorized [id number] Closed Specialty Services Required 08/02/2021 02/01/2023 1 1 Encounter Details Date Type Department Care Team (Late st Contact Info) Description 08/02/2021 Community [facility] [address] [place] [address] Paolo Colunga MD [facility] [place] [address] Elevated rheumatoid factor (Primary Dx); Elevated sed [...] (CRP) documented in this encounter Care Teams Broadcast Supervisor Relationship Specialty Start Date End Date Paolo Colunga MD PCP - General 08/02/21 documented as of this encounter
[2024-11-25 08:00] VITALS: PULSE 100
[2024-11-25] MEDS: FOLIC ACID 1MG TABLET 1 MG PO (09:23)
[2024-11-25] MEDS: GABAPENTIN 300MG CAPSULE 300 MG PO (09:23)
[2024-11-25] MEDS: FAMOTIDINE 20MG TABLET 20 MG PO (09:23)
[2024-11-25] MEDS: HEPARIN SODIUM 5,000 UNIT/ML VIAL 5000 UNIT SUBCUT ×2 (09:23→13:43)
[2024-11-25] MEDS: PANTOPRAZOLE 40MG TABLET 40 MG PO (09:23)
--- NOTE | 2024-11-25 09:40 | HMH.OTEV ---
OT Inpatient Evaluation Rehab OT IP Evaluation Start: 11/25/24 08:14 Freq: ONCE Status: Active Protocol: Document 11/25/24 09:37 [facility] (Rec: 11/25/24 09:40 [facility] [id number]) Rehab OT IP Assessment Subjective History Pt oriented x 4 on arrival. Pt agreeable to engage in therapy evaluation. Pt admitted on 11/23/24 due to SOB and PNA. History and physical: Patient is a 69-year-old male with past medical history of rheumatoid arthritis immunosuppression, interstitial lung disease, pulmonary fibrosis PTSD who presents to the hospital due to generalized weakness, patient was found lethargic at home and EMS was called patient was brought to the hospital, patient was found to have temp of 102. Patient was initially stroke alerted which was ruled out, patient was found to be positive for sepsis pneumonia and admitted for further management. Subjective Prior to being in the hospital, pt lived at home alone. Pt's son lives very close to patient and checks on him daily. Pt claims he is normally independent with all ADLs and IADLs. He does not use any type of AE during functional transfers. He also still drives as needed. Objective Patient Orientation Person,Place,Birthday,Day of Week Right Upper WFL Extremity Gross ROM Left Upper Extremity WFL Gross ROM Bed Mobility bed mobility-scooting,bed mobility - supine/sit Assist Level Supervision/Stand by Transfer Training Sit/Stand Transfer Assist Level Supervision/Stand by Lower Body Dressing Standby Assistance Ability Performing Toilet Standby Assistance Hygiene Ability Overall Commode/ Standby Assistance Toilet Transfer Ability Commode/Toilet Sit to/from Ambulatory Transfer Technique Rehab OT IP prob,goals,plan Problems Date of Evaluation: 11/25/24 Rehab Potential Rehab Potential Innapropriate for Skilled Therapy Discharge Plan OT Discharge Plan Pt appears to be at his baseline for functional transfers and ADL independence. Pt can return home once he is medically stable per physician. Eval Complexity Eval Charge Codes 82170 - Moderate Complexity PHYSICIAN CERTIFICATION: I certify the specified therapy services for Chris Eddy JR are required, authorized, and reviewed every 30 days.
--- NOTE | 2024-11-25 09:43 | EXP.PULM.CON ---
History of Present Illness History of present illness: Mr. Eddy is a 69-year-old man with reported history of mild persistent asthma, rheumatoid arthritis and immunosuppression ILD pulmonary fibrosis PTSD, restrictive lung disease last seen in pulmonary clinic 2022 presented with worsening respiratory distress weakness febrile episodes and pulmonary was called for further evaluation and management. Patient admits he is currently on methotrexate, Rinvoq and prednisone 5 mg daily for his rheumatoid arthritis. Admits stable joint findings but continued decline in his respiratory status Upon questioning patient at baseline with recent progressive worsening respiratory distress since last seen in pulmonary clinic in 2022. He noted no acute decline. Patient admits he was at his normal usual baseline and has noted sudden onset worsening dizziness that prompted his hospital admission. Denies any worsening cough or any productive phlegm. [facility] Disclaimer: The information contained in this section may have been updated after the patient was seen, as this information can be updated by other users. Medical History (Updated 11/25/24 @ 12:41 by Bonnie Pabon MD) Fibrosis of lung Immunosuppression Asthma ILD (interstitial lung disease) Dyspnea on exertion Pulmonary fibrosis, unspecified Rheumatoid arthritis History of 2019 novel coronavirus disease (COVID-19) Asthma Surgical History History of surgery on lower extremity Family History (Updated 11/23/24 @ 16:58 by Dagmar Thorne RN) Other Diabetes Family history of cancer Social History (Updated 11/23/24 @ 17:00 by Dagmar Thorne RN) Smoking Status: Never smoker second hand exposure: No alcohol intake: never substance use type: denies use current occupational status: retired Travel in the last 8 weeks?: None household members: other housing: house current occupation: [employer] current occupational exposures/hazards: No caffeine: Yes Have you lived/traveled outside [place] in past 30 days?: No Contact w/someone who lives/traveled outside US past 30 days?: No Exposure to someone with infectious disease in past 14 days?: No Do you have a fever (greater than 100.4 F or 38 C)?: No Have you tested positive for COVID-19?: No Exposed to someone with COVID-19 in past 14 days?: No Do you have a sore throat?: No Do you have a cough?: No Do you have any weakness?: No Are you experiencing any nausea/vomitting?: No Do you have any diarrhea?: No Are you experiencing any unusual bleeding?: No Do you have any muscle aches/pain?: No Do you have any abdominal pain?: No Are you experiencing loss of taste or smell?: No Review of Systems Constitutional Constitutional: Denies anorexia, Denies body ache(s) and Denies fatigue Eyes Eyes: Denies eye discharge, Denies dry eyes, Denies irritation and Denies itchy eyes ENT Ears, Nose, Mouth, and Throat: Denies epistaxis, Denies facial pain, Denies lip swelling and Denies throat swelling *Cardiovascular Cardiovascular: Reports dyspnea and Reports dyspnea on exertion *Respiratory Respiratory: Denies change in phlegm color, Reports chest congestion, Reports dyspnea, Reports dyspnea on exertion, Denies excessive phlegm production, Denies hemoptysis, Denies pain on inspiration, Denies pain with cough and Denies wheezing *Gastrointestinal Gastrointestinal: Denies abdominal pain, Denies belching and Denies cramping *Musculoskeletal Musculoskeletal: Reports back pain, Denies myalgias and Reports other (No small joint swelling or Pain) Psychiatric Psychiatric: Denies homicidal ideation and Denies suicidal ideation Endocrine Endocrine: Denies fatigue and Denies heat intolerance Hematologic/Lymphatic Hematologic/Lymphatic: Denies easy bleeding and Denies lymphadenopathy Allergic/Immunologic Allergic/Immunologic: Denies itchy eyes, Denies lip swelling, Denies throat swelling and Denies wheezing Pulmonology Exam Inpatient Vital signs and Labs for Last 24 Hours: Temp Pulse Resp BP Pulse Ox O2 Del Method O2 Flow Rate 98.3 F 100 H 18 121/69 94 L Room Air 2 11/25/24 07:52 11/25/24 08:00 11/25/24 07:52 11/25/24 07:52 11/25/24 07:52 11/25/24 06:45 11/24/24 03:00 Laboratory Results - last 24 hr 11/25/24 06:23: WBC 9.5 D, RBC 3.72 L, Hgb 12.2 L, Hct 36.1 L, MCV 97.0 H, MCH 32.8 H, MCHC 33.8, RDW 14.9, Plt Count 132 L, MPV 9.3, Neut % (Auto) 81.1 H, Lymph % (Auto) 6.7 L, [place] % (Auto) 10.7 H, Eos % (Auto) 0.9, Baso % (Auto) 0.2, Neut # (Auto) 7.7, Lymph # (Auto) 0.6 L, [place] # (Auto) 1.0, Eos # (Auto) 0.1, Baso # (Auto) 0.0, Sodium 131 L, Potassium 3.5, Chloride 103, Carbon Dioxide 24, Anion Gap 7.5, BUN 12, Creatinine 0.90 D, Estimated Creat Clear 124, Estimated GFR 84, Est GFR ( Amer) 101 D, Glucose 119 H D, Calcium 8.5 I & O for Labs for Last 24 Hours: Intake & Output 11/22/24 11/23/24 11/24/24 11/25/24 23:59 23:59 23:59 23:59 Intake Total 240 / 360 1340 / 1820 900 / 900 Output Total 750 / 750 950 / 1250 900 / 900 Balance -510 / -390 390 / 570 0 / 0 Weight 275 lb 4 oz 209 lb 5.28 oz 277 lb 8 oz Microbiology Reports for the Last 24 Hours: Microbiology 11/23/24 17:36 Urine,Clean Catch Urine Culture - Final No growth. 11/23/24 14:49 Blood Blood Culture - Preliminary NO GROWTH AFTER 24 HOURS 11/23/24 14:43 Blood Blood Culture - Preliminary NO GROWTH AFTER 24 HOURS Constitutional: Present mild distress Head: Present normocephalic and atraumatic ENT: Present normal exam, normal oropharynx and mucous membranes moist Neck: Present normal inspection and full ROM Respiratory: Present able to speak in complete sentences; Absent prolonged expiratory phase, respiratory distress, wheezes or crackles Cardiac: Present S1/S2, Tachycardia and radial pulses present GI: Present soft and distention; Absent tenderness or guarding Skin: Present intact; Absent cyanosis or jaundice Neuro: Present alert, awake and oriented x 3 Extremities: Present normal inspection; Absent clubbing or cyanosis Psychiatric: Present normal affect and cooperative Meds Home Medications and Allergies Home Medications ?Medication ?Instructions ?Recorded ?Confirmed ?Type methotrexate sodium 25 mg/mL 20 mg SQ WEEKLY 07/10/23 11/24/24 History injection solution omeprazole 40 mg capsule,delayed 40 mg PO DAILY 01/31/24 11/23/24 History release prednisone 5 mg tablet 10 mg PO DAILY 01/31/24 11/23/24 History sulfasalazine 500 mg tablet 1,000 mg PO BID 05/13/24 11/24/24 History famotidine 20 mg tablet (Pepcid) 20 mg PO BID #180 tabs 10/09/24 11/23/24 Rx folic acid 1 mg tablet 1 mg PO DAILY #90 tabs 10/09/24 11/23/24 Rx methocarbamol 500 mg tablet 500 mg PO Q8H PRN pain #10 tabs 10/29/24 11/23/24 Rx oxycodone-acetaminophen 10 mg-325 1 tab PO Q6H PRN pain #120 tabs 11/11/24 11/23/24 Rx mg tablet (Percocet) zolpidem 10 mg tablet (Ambien) 10 mg PO HS #30 tabs 11/11/24 11/23/24 Rx atorvastatin 20 mg tablet 20 mg PO HS 11/23/24 11/23/24 History fluorouracil 5 % topical cream 1 applic topical BIDP PRN Skin 11/23/24 11/24/24 History Condition gabapentin 300 mg capsule 300 mg PO Q8HP PRN NERVE PAIN 11/23/24 11/24/24 History metformin 500 mg tablet 500 mg PO BIDWMEAL 11/23/24 11/24/24 History New Prescriptions to Start Prescriptions: Allergies Allergy/AdvReac Type Severity Reaction Status Date / Time No Known Allergies Allergy Verified 11/11/24 13:53 Results Laboratory Findings 11/25/24 06:23 11/25/24 06:23 PT/INR, D-dimer PT 12.0 seconds (10.1-12.5) 11/23/24 14:43 INR 1.09 (0.9-1.1) 11/23/24 14:43 Abnormal lab findings: Abnormal Labs 11/23/24 11/23/24 11/23/24 14:00 14:10 14:13 WBC 16.2 H RBC 4.38 L Hgb Hct 41.7 L MCV 95.2 H MCH 32.9 H Plt Count Neut % (Auto) 86.4 H Lymph % (Auto) 4.8 L [place] % (Auto) Neut # (Auto) 14.0 H Lymph # (Auto) [place] # (Auto) 1.3 H VBG pH 7.44 H VBG pCO2 34.2 L VBG pO2 111.3 H VBG O2 Saturation 98.4 H VBG Lactic Acid 3.6 H Sodium Chloride Carbon Dioxide Creatinine Glucose Lactate 2.7 H Magnesium 1.4 L Globulin Albumin/Globulin Ratio Triglycerides LDL Cholesterol Direct VLDL Cholesterol Urine Nitrate 11/23/24 11/23/24 11/23/24 14:43 17:36 19:53 WBC RBC Hgb Hct MCV MCH Plt Count Neut % (Auto) Lymph % (Auto) [place] % (Auto) Neut # (Auto) Lymph # (Auto) [place] # (Auto) VBG pH VBG pCO2 VBG pO2 VBG O2 Saturation VBG Lactic Acid Sodium 129 L Chloride 94 L Carbon Dioxide Creatinine Glucose 138 H Lactate 2.3 H Magnesium Globulin 3.6 H Albumin/Globulin Ratio 1.0 L Triglycerides 258 H LDL Cholesterol Direct 75.06 L VLDL Cholesterol 52 H Urine Nitrate Positive A 11/24/24 11/25/24 07:10 06:23 WBC 13.8 H RBC 4.07 L 3.72 L Hgb 13.0 L 12.2 L Hct 39.9 L 36.1 L MCV 98.0 H 97.0 H MCH 31.9 H 32.8 H Plt Count 127 L D 132 L Neut % (Auto) 88.7 H 81.1 H Lymph % (Auto) 4.0 L 6.7 L [place] % (Auto) 10.7 H Neut # (Auto) 12.3 H Lymph # (Auto) 0.6 L 0.6 L [place] # (Auto) VBG pH VBG pCO2 VBG pO2 VBG O2 Saturation VBG Lactic Acid Sodium 130 L 131 L Chloride Carbon Dioxide 21 L Creatinine 0.60 L Glucose 149 H 119 H D Lactate Magnesium Globulin Albumin/Globulin Ratio Triglycerides LDL Cholesterol Direct VLDL Cholesterol Urine Nitrate Assessment and Plan *Assessment and plan (1) Rheumatoid arthritis: Status: Acute Category: Medical Code(s): M06.9 - Rheumatoid arthritis, unspecified (2) Fibrosis of lung: Status: Acute Category: Medical Code(s): J84.10 - Pulmonary fibrosis, unspecified Plan Mr. Eddy is a 69-year-old man with reported history of mild persistent asthma, rheumatoid arthritis and immunosuppression ILD pulmonary fibrosis PTSD, restrictive lung disease last seen in pulmonary clinic 2022 presented with worsening respiratory distress weakness febrile episodes and pulmonary was called for further evaluation and management. Patient admits he is currently on methotrexate, Rinvoq and prednisone 5 mg daily for his rheumatoid arthritis. Admits stable joint findings but continued decline in his respiratory status Upon questioning patient at baseline with recent progressive worsening respiratory distress since last seen in pulmonary clinic in 2022. He noted no acute decline. Patient admits he was at his normal usual baseline and has noted sudden onset worsening dizziness that prompted his hospital admission. Denies any worsening cough or any productive phlegm. Febrile upon admission Tmax of 102.2 on admission from 11/24/2024. Afebrile in the last 24 hours. Neutrophilic predominant leukocytosis improving. Comprehensive respiratory viral PCR panel negative from this morning. Blood cultures and urine cultures, no growth at [address] neck upon admission upper lobes, no dense consolidative changes noted. Faint groundglass opacities. Chest x-ray per admission bilateral diffuse pulmonary infiltrates. CT chest from this morning no dense consolidative/airspace changes/groundglass opacities. Worsening fibrotic changes which appear chronic with no acute pulmonary parenchymal abnormality noted. Given his CAT scan did not show any acute changes it is less likely that his febrile episodes are from pulmonary etiology at this point of time. Plan: - No need for antibiotics pulmonary standpoint. Given his initial febrile episode and no clear source at this point of time and his blood and urinw cultures being negative at 24 hours the plan was made to wean his antibiotics levofloxacin to follow-up on his clinical course prior to discharge. - DuoNebs 4 times daily as needed # With respect to his chronic worsening respiratory distress and worsening fibrotic changes on his CAT scan we will follow-up with patient as an outpatient basis with repeat PFT walk testing to further determine escalation of his immunosuppressive therapy for RA ILD.
--- NOTE | 2024-11-25 09:53 | HMH.PTEV ---
Physical Therapy Evaluation Rehab PT IP Evaluation Start: 11/23/24 17:12 Freq: .once Status: Active Protocol: Document 11/25/24 09:50 ZOE (Rec: 11/25/24 09:53 PHOD[facility]LE [id number]) Subjective/History History History 69-year-old male with past medical history of rheumatoid arthritis immunosuppression, interstitial lung disease, pulmonary fibrosis PTSD who presents to the hospital due to generalized weakness, patient was found lethargic at home and EMS was called patient was brought to the hospital, patient was found to have temp of 102. Patient was initially stroke alerted which was ruled out, patient was found to be positive for sepsis pneumonia and admitted for further management. Pt reports he lives alone, 3 [address] the home, and he is generally independent with all mobility without AD at baseline. Subjective Subjective Pt reports feeling much better this am and is agreeable to OOB mobility assessment. [facility] How much help from another person do you currently need... Turning from your None back to your side while in a flat bed without using bedrails? Moving from lying on None back to sitting on the side of a flat bed without using bedrails? Moving to and from a None bed to a chair ( including a wheelchair)? Standing up from a None chair using your arms? (e.g., wheelchair, bedside chair) Walking in hospital None room? Climbing 3-5 steps None with a railing? Mobility Score 24 Mobility Level [facility] Mobility 8 Walk 250 feet or more Mobility Calculator Rehab PT IP Eval Objective Appearance Patient Behavior Appropriate Patient Orientation Person,Place,Time Difficulty following none instructions Speech Pattern Clear Ambulation Patient Able to Yes Ambulate Ambulation Observation IP General Gait No Deviations/Normal Pattern Observation Ambulation Distance 200 (feet) Ambulation Assistive None Device Ambulation Ability Independent Balance Ability to Arise Able, uses arms to help Sitting Balance Steady, safe Standing Balance Steady, wide stance Dynamic Sitting Good Balance Ability Dynamic Standing Good Balance Ability Transfers Bed Transfer Ability Independent Chair Transfer Independent Ability Sit to Stand Bed Independent Transfer Ability Sit to Stand Chair Independent Transfer Ability Rehab PT IP prob,goals,plan Problems Date of Evaluation: 11/25/24 Discharge Plan PT Discharge Plan Pt is currently appropriate to return home once medically stable for d/c. No skilled acute therapy needs at this time. Eval Complexity Eval Charge Codes 10034 - High Complexity PHYSICIAN CERTIFICATION: I certify the specified therapy services for Chris O Nunu JR are required, authorized, and reviewed every 30 days.
[2024-11-25] MEDS: OXYCODONE 10MG W/APAP 325MG TABLET 1 EACH PO (10:26)
[2024-11-25 10:33] LABS: Adenovirus,PCR Not Detected (NotDetected); Chlamydophila Pneumoniae, PCR Not Detected (NotDetected); Coronavirus 19, PCR Not Detected (NotDetected); Coronovirus HKU1,PCR Not Detected (NotDetected); Influenza A, PCR Not Detected (NotDetected); Influenza AH1, 2009 Not Detected (NotDetected); Influenza AH1, PCR Not Detected (NotDetected); Influenza AH3,PCR Not Detected (NotDetected); Influenza B, PCR Not Detected (NotDetected); Mycoplasma Pneumoniae, PCR Not Detected (NotDetected); Parainfluenza 1, PCR Not Detected (NotDetected); Parainfluenza 2, PCR Not Detected (NotDetected); Parainfluenza 3, PCR Not Detected (NotDetected); Parainfluenza 4, PCR Not Detected (NotDetected)
--- NOTE | 2024-11-25 10:41 | CT_ITS ---
FINAL REPORT TECHNIQUE: Axial images were obtained through the chest without contrast. Coronal and sagittal images were obtained and reviewed. This study was performed with techniques to keep radiation doses as low as reasonably achievable, (ALARA). Individualized dose reduction techniques using automated exposure control or adjustment of mA and/or kV according to the patient's size were employed. CLINICAL HISTORY: pna COMPARISON: 10/06/2022 FINDINGS: There are densely calcified left hilar lymph nodes. Moderate coronary artery calcifications are noted. The heart size is normal. There is no pericardial or pleural effusion. Limited images of the upper abdomen are unremarkable. Coarse fibrosis is noted in the periphery of both lungs. This has progressed compared to the prior exam at the bases. There is evidence of old granulomatous disease. IMPRESSION: Progressive chronic fibrosis. Reviewed, Interpreted and Dictated by Dale Christensen MD Transcribed by Karissa Damico Authenticated and [facility]
[2024-11-25 10:48] LABS: C-Reactive Protein 138.6 mg/L (0-4)
[2024-11-25] MEDS: LEVOFLOXACIN/D5W 750 MG/150 ML 750 MG/150 ML PIGGYBACK 100 MG IV (11:44)
[2024-11-25 12:00] VITALS: BP 149/64; PULSE 90; RESP 18; TEMP 36.9; O2SAT 94
[2024-11-25 14:25] LABS: Procalcitonin 0.367 ng/mL (0.0-2.0)
--- NOTE | 2024-11-25 14:45 | P.DS_ITS ---
<Statement entered by Hilario Ham MD - 11/25/24 16:06> Rounded on patient after nurse practitioner. Personally examined and interviewed patient. Agree with exam findings and care plan as documented. General Admission date:: 11/23/24 HPI HPI HPI: Patient is a 69-year-old male with past medical history of rheumatoid arthritis immunosuppression, interstitial lung disease, pulmonary fibrosis PTSD who presents to the hospital due to generalized weakness, patient was found lethargic at home and EMS was called patient was brought to the hospital, patient was found to have temp of 102. Patient was initially stroke alerted which was ruled out, patient was found to be positive for sepsis pneumonia and admitted for further management. Hospital Course Hospital Course Hospital Course: Mr. Eddy is a 69-year-old male who presented to the emergency department on 11/23/2024 due to generalized weakness and fever (temperature of 102). Patient has a primary medical history of rheumatoid arthritis, on immunosuppression therapy, skin cancer, pulmonary fibrosis, mood disorder, interstitial lung disease, PTSD, GERD, diabetes mellitus, hyperlipidemia, chronic pain. Workup in the emergency room was significant for leukocytosis 16.2, mild hyponatremia of 129, lactic of 3.6, PO2 111, urinary tract infection. Chest x-ray shows bilateral pulmonary infiltrates suggestive of fluid overload. Head and neck CTA were unremarkable. Hospital medicine was consulted for further workup and admission. Plan of care went as follows: #Leukocytosis #Fever #Urinary tract infection ? Patient urine shows low specific gravity, positive nitrites, trace protein, 3- 5 WBC. Treated with empiric antibiotics during admission, transition to Levaquin p.o. at discharge. Urine culture shows no growth at 24 hours. ? Patient initially had a fever of 102 on admission, patient has been afebrile for 24 hours. ? Patient initial white count elevated at 16.2, patient was started on vancomycin and Zosyn. Patient white count has normalized 9.5. Patient discharged home on Levaquin 750 daily to complete a 7-day course. Patient should follow-up with PCP for repeat CBC and assessment. ? Lactic stabilized at 1.7. Patient still mildly hyponatremic, sodium 131. Should follow-up with PCP for further evaluation. #Rheumatoid arthritis #Pulmonary fibrosis ? Pulmonology was consulted due to interstitial lung disease and unknown fever. Patient currently takes methotrexate, Rinvoq, and prednisone 5 mg daily for his rheumatoid arthritis. Respiratory panel negative. Blood cultures showed no growth after [address] of chest shows no consolidation/airspace changes/groundglass opacities. Though it is notable for worsening fibrotic changes which appear chronic. ?Patient remained stable on room air. Close outpatient pulmonary follow-up with PFT testing. Discharge patient home with albuterol inhaler 4 times daily as needed. Patient's lungs CTA. Patient denies any shortness of breath. #Hyperlipidemia: Continue atorvastatin 20 mg at bedtime at discharge. #GERD: Continue famotidine 20 mg twice daily and omeprazole 40 mg daily at discharge. #Diabetes mellitus: Continue metformin 500 mg twice daily at discharge. #Chronic pain: Continue Percocet 10-325 mg every 6 hours as needed for pain and gabapentin 300 mg every 8 hours as needed for pain. Total time spent on discharge 34 minutes in counseling, documentation, chart review, and direct care with patient. Exam Data for Last 24 hours Vital signs and Labs for Last 24 Hours: Temp Pulse Resp BP Pulse Ox O2 Del Method O2 Flow Rate 98.4 F 90 18 149/64 H 94 L Room Air 2 11/25/24 12:00 11/25/24 12:00 11/25/24 12:00 11/25/24 12:00 11/25/24 12:00 11/25/24 13:00 11/24/24 03:00 Laboratory Results - last 24 hr 11/25/24 06:23: WBC 9.5 D, RBC 3.72 L, Hgb 12.2 L, Hct 36.1 L, MCV 97.0 H, MCH 32.8 H, MCHC 33.8, RDW 14.9, Plt Count 132 L, MPV 9.3, Neut % (Auto) 81.1 H, Lymph % (Auto) 6.7 L, Meigs % (Auto) 10.7 H, Eos % (Auto) 0.9, Baso % (Auto) 0.2, Neut # (Auto) 7.7, Lymph # (Auto) 0.6 L, Meigs # (Auto) 1.0, Eos # (Auto) 0.1, Baso # (Auto) 0.0, Sodium 131 L, Potassium 3.5, Chloride 103, Carbon Dioxide 24, Anion Gap 7.5, BUN 12, Creatinine 0.90 D, Estimated Creat Clear 124, Estimated GFR 84, Est GFR ( Amer) 101 D, Glucose 119 H D, Calcium 8.5, C-Reactive Protein 138.6 H, Procalcitonin 0.367 11/25/24 10:27: Chlamy pneumoniae PCR Not detected, Adenovirus (PCR) Not detected, B. pertussis DNA (PCR) Not detected, Coronavirus OC43 (PCR) Not detected, Coronavirus HKU1 (PCR) Not detected, Coronavirus 229E (PCR) Not detect ed, SARS-CoV-2 (PCR) Not detected, Coronavirus NL63 (PCR) Not detected, Human Metapneumovir PCR Not detected, Influenza A (H1) PCR Not detected, Influ A (H1N1/09) PCR Not detected, Influenza A (H3) PCR Not detected, Influenza Type A (PCR) Not detected, Influenza Type B (PCR) Not detected, M. pneumoniae (PCR) Not detected, Parainfluenza 1 (PCR) Not detected, Parainfluenza 2 (PCR) Not detected, Parainfluenza 3 (PCR) Not detected, Parainfluenza 4 (PCR) Not detected, RSV (PCR) Not detected, Entero/Rhino (PCR) Not detected I & O for Last 24 hours: Intake & Output 11/22/24 11/23/24 11/24/24 11/25/24 23:59 23:59 23:59 23:59 Intake Total 240 / 360 1340 / 1820 1320 / 1320 Output Total 750 / 750 950 / 1250 900 / 900 Balance -510 / -390 390 / 570 420 / 420 Weight 124.851 kg 94.95 kg 125.872 kg Microbiology Reports for the Last 24 Hours: Microbiology 11/23/24 17:36 Urine,Clean Catch Urine Culture - Final No growth. 11/23/24 14:49 Blood Blood Culture - Preliminary NO GROWTH AFTER 24 HOURS 11/23/24 14:43 Blood Blood Culture - Preliminary NO GROWTH AFTER 24 HOURS Constitutional Constitutional: no acute distress *Routine HEENT Exam Head: Present normocephalic Eye: Present EOMI and PERRL ENT: Present mucous membranes moist *Routine Neck Exam Neck: Present supple; Absent lymphadenopathy *Routine Respiratory Exam Respiratory: Present CTA bilaterally *Routine Cardiovascular Exam Cardiovascular: Present RRR *Routine Abdominal Exam Abdominal: Present soft and normoactive bowel sounds; Absent tenderness *Routine Extremities Exam Extremities: Absent cyanosis, clubbing or edema *Routine Skin Exam Skin: Present warm; Absent rash *Routine Neurological Exam Neurological: Present alert and oriented X3 Results Data Completed and Pending Labs on day of discharge: Labs from last 24 hours 11/25/24 11/25/24 10:27 06:23 WBC 9.5 D RBC 3.72 L Hgb 12.2 L Hct 36.1 L MCV 97.0 H MCH 32.8 H MCHC 33.8 RDW 14.9 Plt Count 132 L MPV 9.3 Neut % (Auto) 81.1 H Lymph % (Auto) 6.7 L Meigs % (Auto) 10.7 H Eos % (Auto) 0.9 Baso % (Auto) 0.2 Neut # (Auto) 7.7 Lymph # (Auto) 0.6 L Meigs # (Auto) 1.0 Eos # (Auto) 0.1 Baso # (Auto) 0.0 Sodium 131 L Potassium 3.5 Chloride 103 Carbon Dioxide 24 Anion Gap 7.5 BUN 12 Creatinine 0.90 D Estimated Creat Clear 124 Estimated GFR 84 Est GFR ( Amer) 101 D Glucose 119 H D Calcium 8.5 C-Reactive Protein 138.6 H Procalcitonin 0.367 Chlamy pneumoniae PCR Not detected Adenovirus (PCR) Not detected B. pertussis DNA (PCR) Not detected Coronavirus OC43 (PCR) Not detected Coronavirus HKU1 (PCR) Not detected Coronavirus 229E (PCR) Not detected SARS-CoV-2 (PCR) Not detected Coronavirus NL63 (PCR) Not detected Human Metapneumovir PCR Not detected Influenza A (H1) PCR Not detected Influ A (H1N1/09) PCR Not detected Influenza A (H3) PCR Not detected Influenza Type A (PCR) Not detected Influenza Type B (PCR) Not detected M. pneumoniae (PCR) Not detected Parainfluenza 1 (PCR) Not detected Parainfluenza 2 (PCR) Not detected Parainfluenza 3 (PCR) Not detected Parainfluenza 4 (PCR) Not detected RSV (PCR) Not detected Entero/Rhino (PCR) Not detected Preliminary micro results at discharge 11/23/24 14:49 Blood Culture - Preliminary Blood NO GROWTH AFTER 24 HOURS 11/23/24 14:43 Blood Culture - Preliminary Blood NO GROWTH AFTER 24 HOURS DS: Diagnosis Discharge Diagnosis (1) Rheumatoid arthritis: Status: Acute Code(s): M06.9 - Rheumatoid arthritis, unspecified (2) Fibrosis of lung: Status: Acute Code(s): J84.10 - Pulmonary fibrosis, unspecified (3) Leukocytosis: Status: Acute Code(s): D72.829 - Elevated white blood cell count, unspecified (4) Fever: Status: Acute Code(s): R50.9 - Fever, unspecified (5) Rheumatoid arthritis: Status: Chronic Code(s): M06.9 - Rheumatoid arthritis, unspecified Qualifiers: Laterality: unspecified laterality Rheumatoid arthritis location: hand Rheumatoid factor presence: with rheumatoid factor Qualified Code(s): M05.749 - Rheumatoid arthritis with rheumatoid factor of unspecified hand without organ or systems involvement (6) Pulmonary fibrosis, unspecified: Status: Chronic Code(s): J84.10 - Pulmonary fibrosis, unspecified (7) Hyperlipidemia: Status: Acute Code(s): E78.5 - Hyperlipidemia, unspecified (8) GERD (gastroesophageal reflux disease): Status: Acute Code(s): K21.9 - Gastro-esophageal reflux disease without esophagitis (9) Diabetes mellitus: Status: Acute Code(s): E11.9 - Type 2 diabetes mellitus without complications (10) Chronic pain: Status: Acute Code(s): G89.29 - Other chronic pain Meds Home Medications and Allergies Home Medications ?Medication ?Instructions ?Recorded ?Confirmed ?Type methotrexate sodium 25 mg/mL 20 mg SQ WEEKLY 07/10/23 11/24/24 History injection solution omeprazole 40 mg capsule,delayed 40 mg PO DAILY 11/23/24 History release prednisone 5 mg tablet 10 mg PO DAILY 01/31/2406/18 History sulfasalazine 500 mg tablet 1,000 mg PO BID 05/13/24 0 11/24/24 History famotidine 20 mg tablet (Pepcid) 20 mg PO BID #180 tab s 10/09/24 11/23/24 Rx folic acid 1 mg tablet 1 mg PO DAILY #90 tabs 10/0911/23/24 Rx methocarbamol 500 mg tablet 500 mg PO Q8H PRN pain #10 tabs 10/29/24 11/23/24 Rx oxycodone-acetaminophen 10 mg-325 1 tab PO Q6H PRN maura n #120 tabs 11/11/24 11/23/24 Rx mg tablet (Percocet) zolpidem 10 mg tablet (Ambien) 10 mg PO HS #30 tabs 11/23/24 Rx atorvastatin 20 mg tablet 20 mg PO HS 11/23/24 5 History fluorouracil 5 % topical cream 1 applic topical BIDP P RN Skin 11/23/24 11/24/24 History Condition gabapentin 300 mg capsule 300 mg PO Q8HP PRN NERVE MAURA N 11/23/24 11/24/24 History metformin 500 mg tablet 500 mg PO BIDWMEAL 11/23/24 11/24/24 History albuterol sulfate 90 mcg/actuation 1 inh inhalation QI D PRN shortness 11/25/24 Rx aerosol inhaler (Ventolin HFA) of breath or wheezing # 6.7 grams levofloxacin 750 mg tablet 750 mg PO DAILY #4 tabs 08/16 Rx New Prescriptions to Start Prescriptions: albuterol sulfate [Ventolin HFA] Amalia Holloway levofloxacin Amalia Holloway Allergies Allergy/AdvReac Type Severity Reaction Status Date / Time No Known Allergies Allergy Verified 11/11/24 13:53 Discharge Plan Disposition Patient Disposition: Home, Self-Care Condition: Fair Discharge Order Discharge Orders: Discharge Order (Routine); Ordered 11/25/24 Ordered By: Amalia Holloway Follow up Plan Follow up with: Bonnie Pabon MD [Physician, Pulmonology] - 12/16/24 11:00 am Paolo Colunga MD [Staff Physician, Family Practice] - 11/28/24 2:20 pm Prescriptions/Medication Reconciliation: New levofloxacin 750 mg tablet 750 mg PO DAILY Qty: 4 0RF albuterol sulfate [Ventolin HFA] 90 mcg/actuation HFA aerosol inhaler 1 inh inhalation QID PRN (Reason: shortness of breath or wheezing) Qty: 6.7 1RF Continued oxycodone-acetaminophen [Percocet] 10-325 mg tablet 1 tab PO Q6H PRN (Reason: pain) Qty: 120 0RF Rx Instructions: for severe pain assoc w/rheumatoid zolpidem [Ambien] 10 mg tablet 10 mg PO HS Qty: 30 3RF methotrexate sodium 25 mg/mL solution 20 mg SQ WEEKLY Rx Instructions: EVERY MONDAY prednisone 5 mg tablet 10 mg PO DAILY Patient Comments: TAKE 1 TABLET BY MOUTH ONCE DAILY DIRECTED IN OFFICE. TAKE WITH FOOD. NO NSAID USE. Rx Instructions: PATIENT ON STEROID TAPER, STARTED AT 40 MG DAILY FOR A WEEK, CURRENTLY TAKING 10 MG DAILY FOR 1 WEEK. omeprazole 40 mg capsule,delayed release(DR/EC) 40 mg PO DAILY Patient Comments: TAKE 1 CAPSULE BY MOUTH ONCE DAILY. sulfasalazine 500 mg tablet 1,000 mg PO BID Patient Comments: TAKE 2 TABLETS BY MOUTH TWICE DAILY famotidine [Pepcid] 20 mg tablet 20 mg PO BID Qty: 180 3RF folic acid 1 mg tablet 1 mg PO DAILY Qty: 90 3RF methocarbamol 500 mg tablet 500 mg PO Q8H PRN (Reason: pain) Qty: 10 0RF metformin 500 mg tablet 500 mg PO BIDWMEAL atorvastatin 20 mg tablet 20 mg PO HS fluorouracil 5 % cream 1 applic topical BIDP PRN (Reason: Skin Condition) Rx Instructions: use twice a day until significant blister forms, hold then allow blister to heal, repeat cycle as necessary gabapentin 300 mg capsule 300 mg PO Q8HP PRN (Reason: NERVE PAIN) Problem Reconciliation Problems Reviewed?: Yes Patient Discharge Instructions ACTIVITY: Continue current activity DIET: continue same diet Patient Instructions: DI for Pneumonia -- Adult, DI for Sepsis -- Adult, Stop Light Pneumonia, Stop Light Infection Print Language: Romansh Providers Primary Care Provider: Provider,Referral Admit Provider: Hilario Ham Attending Provider: Hilario Ham
--- NOTE | 2024-11-25 15:30 | SW/DCPLANNER ---
Per PT/OT no needs at this time.
--- NOTE | 2024-11-26 10:29 | SW/DCPLANNER ---
Spoke with patient on the phone. Patient stated that he is not feeling well today. Patient stated that he is aware of his upcoming appointments. Patient stated that his son is going now to [facility] pick[facility] his medicine. Patient stated that he does not have any concerns or questions at this time. Cyndie Girard
== END 2024-11-25 15:57 | disposition home or self-care (01) ==
LOC: ER 14:45 → 2ND 19:27
PROVIDERS: Internal Medicine; Internal Medicine Pulmonary Disease; Nurse Practitioner; Admitting Provider Internal Medicine Adolescent Medicine; Emergency Provider Student in an Organized Health Care Education/Training Program; Visit Provider Internal Medicine Adolescent Medicine
DX: A41.9 Sepsis, unspecified organism (principal); J18.9 Pneumonia, unspecified organism; E87.1 Hypo-osmolality and hyponatremia; D84.9 Immunodeficiency, unspecified; E87.20 Acidosis, unspecified; J84.10 Pulmonary fibrosis, unspecified; F43.10 Post-traumatic stress disorder, unspecified; F39 Unspecified mood [affective] disorder; K21.9 Gastro-esophageal reflux disease without esophagitis; N39.0 Urinary tract infection, site not specified; J45.30 Mild persistent asthma, uncomplicated; E11.9 Type 2 diabetes mellitus without complications; E78.5 Hyperlipidemia, unspecified; G89.29 Other chronic pain; M05.749 Rheumatoid arthritis with rheumatoid factor of unspecified hand without organ or systems involvement; Z85.828 Personal history of other malignant neoplasm of skin; Z79.631 Long term (current) use of antimetabolite agent; Z79.84 Long term (current) use of oral hypoglycemic drugs; Z79.52 Long term (current) use of systemic steroids; Z79.891 Long term (current) use of opiate analgesic; Z79.899 Other long term (current) drug therapy
CPT/HCPCS: 0223U; 36415; 70450; 70496; 70498; 71045; 71250; 80048; 80053; 80061; 80307; 80320; 81001; 82803; 83605; 83735; 84145; 84484; 85025; 85610; 85730; 86140; 87040; 87086; 87633; 93005; 96372; 96374; 96375; 96376; 97163; 97166; 99285; G0378; J0131; J0692; J1644; J1956; J2543; J3373; J7030; J7050; J7120; Q9967

== ENCOUNTER 2025-03-24 19:18 | Outpatient (CLI) | payer MEDICARE, SELFPAY ==
--- OUTSIDE RECORDS SUMMARY | 2025-02-26 11:20 | XMS_ITS | Encounter Summary ---
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 Phone Kimberly Andrews MD Primary Care Provider [phone] Reason for Referral * PFT (Routine) - Pending Review Specialty Diagnoses / Procedures Referred By Contac t Referred To Contact Diagnoses Cough, unspecified type SOB (shortness of breath) UIP (usual interstitial pneumonitis) (HCC) Seropositive rheumatoid arthritis of multiple sites ([facility]) Procedures PULMONARY FUNCTION TEST Ryan Lockett MD [address] [place], [place] [id number] Phone: tel: fax: Referral ID Status Reason Start Date Expiration Date V isits Requested Visits Authorized [id number] Pending Review 08/26/2024 08/26/2025 1 1 Reason for Visit * PFT (Routine) - Pending Review Specialty Diagnoses / Procedures Referred By Contac t Referred To Contact Diagnoses Cough, unspecified type SOB (shortness of breath) UIP (usual interstitial pneumonitis) (HCC) Seropositive rheumatoid arthritis of multiple sites ([facility]) Procedures PULMONARY FUNCTION TEST Ryan Lockett MD [address] [address] Phone: tel: fax: Referral ID Status Reason Start Date Expiration Date V isits Requested Visits Authorized [id number] Pending Review 08/26/2024 08/26/2025 1 1 Encounter Details Date Type Department Care Team (Latest Contact Info) Description 02/26/2025 11:20 AM EST - 02/26/2025 11:59 PM [facility] Hospital Encounter [facility] [address] [place] [id number] Ryan Lockett MD [address] [facility] [address] [place] [address] Cough, unspecified type; SOB (shortness of breath); UIP (usual interstitial pneumonitis) ([facility]); Seropositive rheumatoid arthritis of multiple sites ([facility]) Discharge Disposition: Home or Self Care Social History Tobacco Use Types Packs/Day Years Used Date Smoking Tobacco: Never Smokeless Tobacco: Current Chew Comments:refused counseling. Alcohol Use Standard Drinks/Week Comments Yes 0 (1 standard drink = 0.6 oz pure alcohol) rarely.1 bottle bourbon per year. Sex and Gender Information Value Date Recorded Sex Assigned at Not on file Legal Sex Male 2:10 PM EDT Gender Identity Not on file Sexual Orientation Not on file documented as of this encounter Medications at Time of Discharge albuterol (PROVENTIL) 2.5 mg /3 mL (0.083 %) Inhl Solution for Nebulization Take 2.5 mg by nebulization every 6 hours as needed for Wheezing. atorvastatin (LIPITOR) 20 mg Oral Tablet Take 20 mg by mouth daily. folic acid (FOLVITE) 1 mg Oral Tablet Take by mouth daily. gabapentin (NEURONTIN) 300 mg Oral Capsule Take 300 mg by mouth 3 times daily. metFORMIN (GLUCOPHAGE) 500 mg Oral Tablet Take 500 mg by mouth 2 times daily. omeprazole (PRILOSEC) 10 mg Oral Capsule, Delayed Release(E.C.) Take 10 mg by mouth daily. oxyCODONE 10 mg Oral Tablet Take 10 mg by mouth every 6 hours. pantoprazole (PROTONIX) 20 mg Oral Tablet, Delayed Release (E.C.) Take by mouth daily. predniSONE (DELTASONE) 5 mg Oral Tablet Take 5 mg by mouth 2 times daily. sulfaSALAzine (AZULFIDINE) 500 mg Oral Tablet Take by mouth every 6 hours. zolpidem (AMBIEN) 10 mg Oral Tablet Take 10 mg by mouth nightly. documented as of this encounter Discharge Disposition Disposition Code Departure Means Destination Home or Self Care documented in this encounter Plan of Treatment Not on file documented as of this encounter Procedures Procedure Name Priority Date/Time Associated Diagnosis Comments PULMONARY FUNCTION TEST Routine 02/26/2025 11:20 AM EST Cough, unspecified type SOB (shortness of breath) UIP (usual interstitial pneumonitis) ([facility]) Seropositive rheumatoid arthritis of multiple sites ([facility]) documented in this encounter Results * (ABNORMAL) PULMONARY FUNCTION TEST (02/26/2025 11:20 AM EST) FVC_PRE 3.09(L) 3.38 - 5.73 L 02/26/2025 2:02 PM EST [facility] FEV1_PRE 2.30(L) 2.48 - 4.26 L 02/26/2025 2:02 PM EST [facility] FEV1/FVC_PRE 74.52 62.88 - 86.43 % 02/26/2025 2:02 PM EST [facility] Hb_PRE 15.40 g(Hb)/dL 02/26/2025 2:02 PM EST [facility] ERV_PRE 0.36(L) 0.46 - 2.89 L 02/26/2025 2:02 PM EST [facility] RV_PRE 1.94 1.66 - 4.15 L 02/26/2025 2:02 PM EST [facility] RV%TLC_PRE 38.23 24.02 - 46.71 % 02/26/2025 2:02 PM EST [facility] TLC_PRE 5.08(L) 6.24 - 9.54 L 02/26/2025 2:02 PM EST [facility] FVC_Pre%REF 68 % 02/26/2025 2:02 PM EST [facility] FEV1_Pre%REF 68 % 02/26/2025 2:02 PM EST [facility] RV_Pre%REF 70 % 02/26/2025 2:02 PM EST [facility] TLC_Pre%REF 64 % 02/26/2025 2:02 PM EST [facility] ERV_Pre%REF 25 % 02/26/2025 2:02 PM EST [facility] 02/26/2025 11:2 0 AM EST Impressions [facility] - 02/26/2025 2:02 PM EST Restrictive ventilation disorde rc/w Interstitial lung disease or Pneumonitis Ryan Lockett MD PFT ORDERABLES Final Result [facility] [address] [phone] documented in this encounter Visit Diagnoses Diagnosis Cough, unspecified type SOB (shortness of breath) Shortness of breath UIP (usual interstitial pneumonitis) (HCC) Postinflammatory pulmonary fibrosis Seropositive rheumatoid arthritis of multiple sites (HCC) documented in this encounter Care Teams Construction Craft Laborer Relationship Specialty Start Date End Date Kimberly Andrews MD [address] [place] [phone] PCP - General Family Medicine 08/29/11 documented as of this encounter
--- OUTSIDE RECORDS SUMMARY | 2025-02-26 11:20 | XMS_ITS | Encounter Summary ---
Author Organization [place] [address] Care Team Providers Care Driver Messenger Name Role Phone Kimberly Andrews MD Primary Care Provider Reason for Referral * MRI/CAT Scan (Routine) - Closed Specialty Diagnoses / Procedures Referred By Contac t Referred To Contact Radiology Diagnoses Cough, unspecified type SOB (shortness of breath) UIP (usual interstitial pneumonitis) (HCC) Seropositive rheumatoid arthritis of multiple sites (HCC) Procedures CT CHEST HIGH RESOLUTION WO CONTRAST Ryan Lockett MD [address] [address] Phone: tel: fax: Referral ID Status Reason Start Date Expiration Date Visits Re quested Visits Authorized [id number] Closed 08/26/2024 08/26/2025 1 1 Reason for Visit * MRI/CAT Scan (Routine) - Closed Specialty Diagnoses / Procedures Referred By Contac t Referred To Contact Radiology Diagnoses Cough, unspecified type SOB (shortness of breath) UIP (usual interstitial pneumonitis) (HCC) Seropositive rheumatoid arthritis of multiple sites (HCC) Procedures CT CHEST HIGH RESOLUTION WO CONTRAST Ryan Lockett MD [address] [address] Phone: tel: fax: Referral ID Status Reason Start Date Expiration Date Visits Re quested Visits Authorized [id number] Closed 08/26/2024 08/26/2025 1 1 Encounter Details Date Type Department Care Team (Latest Contact Info) Description 02/26/2025 11:20 AM EST - 02/26/2025 11:59 PM [facility] Hospital Encounter [place] [facility] [address] [place] [id number] Ryan Lockett MD 655 [facility] Building [address] [place] [phone] Cough, unspecified type; SOB (shortness of breath); UIP (usual interstitial pneumonitis) ([facility]); Seropositive rheumatoid arthritis of multiple sites ([facility]) Discharge Disposition: Home or Self Care Social [...] Procedure Name Priority Date/Time Associated Diagnosis Comments CT CHEST HIGH RESOLUTION WO CONTRAST Routine 02/26/2025 11:32 AM EST Cough, unspecified type SOB (shortness of breath) UIP (usual interstitial pneumonitis) (HCC) Seropositive rheumatoid arthritis of multiple sites (HCC) documented in this encounter Results * CT CHEST HIGH RESOLUTION WO CONTRAST (02/26/2025 11:32 AM EST) Anatomical Region Laterality Modality Chest Computed Tomogra phy 02/26/2025 11:3 2 AM EST Impressions 02/26/2025 1:05 PM EST No significant change in interstitial lung disease as above. Possible early UIP pattern - Note: Radiology results need to be interpreted within a comprehensive clinical context. If you have questions about the radiology report, please contact the office of the ordering clinician. Narrative 02/26/2025 1:[address] CHEST HIGH-RESOLUTION WITHOUT CONTRAST, 02/26/2025 11:32 AM CLINICAL HISTORY: R05.9-Cough, qrwgtymzubd-KON-34-CM R06.02-Shortness of qosqqr-POB-31-CM J84.112-Idiopathic pulmonary fibrosis (HCC)-ICD-10-CM M05.79-Rheumatoid arthritis with rheumatoid factor of multiple sites without organ or systems involvement (HCC)-ICD-10-CM. COMPARISON: June PROCEDURE COMMENTS: High-resolution CT chest per protocol. Multiplanar reconstructions. Dose 1 : CT DLP Total : 665.56 mGycm DLP Spiral Max : 463.63 mGycm Maximum CTDI Vol : 11.98 mGy SSDE : 8.7454 mGy SSDE Diameter : 44.1 cm SSDE Source : Lat FINDINGS: The central airways are patent. There is no substantial interval change in moderate basilar predominant subpleural reticulation. No honeycombing. No significant air trapping on expiratory imaging. No suspicious mediastinal or hilar lymphadenopathy. Heart size is within normal limits. Coronary artery calcification: Moderate. No acute findings in limited imaging of the upper abdomen. Cholelithiasis. No suspicious osseous lesion. Procedure Note Lamin Goldstein MD - 02/26/2025 CT CHEST HIGH-RESOLUTION WITHOUT CONTRAST, 02/26/2025 11:32 AM CLINICAL HISTORY: R05.9-Cough, zhkgqqxgbby-XIV-38-CM R06.02-Shortness of qdwjkx-OMV-95-CM J84.112-Idiopathic pulmonary fibrosis (HCC)-ICD-10-CM M05.79-Rheumatoid arthritis with rheumatoid factor of multiple siteswithout organ or systems involvement (HCC)-ICD-10-CM. COMPARISON: June PROCEDURE COMMENTS: High-resolution CT chest per protocol. Multiplanar reconstructions. Dose 1 : CT DLP Total : 665.56 mGycm DLP Spiral Max : 463.63 mGycm Maximum CTDI Vol : 11.98 mGy SSDE : 8.7454 mGy SSDE Diameter : 44.1 cm SSDE Source : Lat FINDINGS: The central airways are patent. There is no substantial interval change in moderate basilar predominant subpleural reticulation. No honeycombing. No significant air trapping on expiratory imaging. No suspicious mediastinal or hilar lymphadenopathy. Heart size is withinnormal limits. Coronary artery calcification: Moderate. No acute findings in limited imaging of the upper abdomen.Cholelithiasis. No suspicious osseous lesion. IMPRESSION: No significant change in interstitial lung disease as above. Possibleearly UIP pattern - Note: Radiology results need to be interpreted within a comprehensiveclinical context. If you have questions about the radiology report, please contactthe office of the ordering clinician. 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
--- OUTSIDE RECORDS SUMMARY | 2025-02-28 13:00 | XMS_ITS | Encounter Summary ---
Author Organization [place] [address] Care Team Providers Care Insurance Underwriter Sales Name Role Phone Kimberly Andrews MD Primary Care Provider [phone] Reason for Referral * MRI/CAT Scan (Routine) - Pending Review Specialty Diagnoses / Procedures Referred By Contac t Referred To Contact Radiology Diagnoses UIP (usual interstitial pneumonitis) (HCC) Seropositive rheumatoid arthritis of multiple sites (HCC) Procedures CT CHEST HIGH RESOLUTION WO CONTRAST Ryan Lockett MD [address] [place] [phone] Phone: tel: fax: Referral ID Status Reason Start Date Expiration Date V isits Requested Visits Authorized [id number] Pending Review 02/28/2025 02/28/2026 1 1 * PFT (Routine) - Pending Review Specialty Diagnoses / Procedures Referred By Contac t Referred To Contact Diagnoses UIP (usual interstitial pneumonitis) (HCC) Seropositive rheumatoid arthritis of multiple sites ([facility]) Procedures PULMONARY FUNCTION TEST Ryan Lockett MD [address] [address] Phone: tel: fax: Referral ID Status Reason Start Date Expiration Date V isits Requested Visits Authorized [id number] Pending Review 02/28/2025 02/28/2026 1 1 Reason for Visit * Reason Comments Follow-up Lungs ct scan, sob w hen walking, hurts so bad in joints and lungs Encounter Details Date Type Department Care Team (Latest Contact Info) Description 02/28/2025 1:00 PM EST Office Visit [facility] Pulmonology [facility] [address] [place] Building [address] [place] [phone] Ryan Lockett MD 651 [facility] [address] [place] [address] UIP (usual interstitial pneumonitis) (HCC) (Primary Dx); Seropositive rheumatoid arthritis of multiple sites (HCC); SOB (shortness of breath) Social History Tobacco Use Types Packs/Day Years Used Date Smoking Tobacco: Never Smokeless Tobacco: Never Chew Comments:refused counseling. Alcohol Use Standard Drinks/Week Comments Not Currently 0 (1 standard drink = 0.6 oz pure alcohol) rarely.1 bottle bourbon per year. Sexually Active Control Partners Comments Not Currently Female Sex and Gender Information Value Date Recorded Sex Assigned at Not on file Legal Sex Male 2:10 PM EDT Gender Identity Not on file Sexual Orientation Not on file documented as of this encounter Last Filed Vital Signs Vital Sign Reading Time Taken Comments Blood Pressure 140/80 02/28/2025 1:15 PM EST Pulse 96 02/28/2025 1:15 PM EST Temperature - - Respiratory Rate - - Oxygen Saturation 93% 02/28/2025 1:15 PM EST ra@rest Inhaled Oxygen Concentration - - Weight 125.6 kg (277 lb) 02/28/2025 1:15 PM EST Height 188 cm (6' 2 ) 02/28/2025 1:15 PM EST Body Mass Index 35.56 02/28/2025 1:15 PM EST documented in this encounter Progress Notes * Ryan Lockett MD - 02/28/2025 1:00 PM EST Images from the original note were not included. seborrheic dermatitis [facility] Pul[facility] Critical Care Group Followup Visit PATIENT: CHRIS EDDY CSN: [id number] AGE TODAY: 70 y.o. DATE: [address]: Kimberly Andrews MD SERVICE DATE: 02/28/2025 [facility] PULM SERVICE BY: Ryan Lockett MD Subjective: Patient ID: Chris Eddy returns today for follow up of . 1. UIP (usual interstitial pneumonitis) (HCC) 2. Seropositive rheumatoid arthritis of multiple sites (HCC) 3. SOB (shortness of breath) Referred from: No referring provider defined for this encounter. CHIEF COMPLAINT Chief Complaint Patient presents with Follow-up Lungs ct scan, sob when walking, hurts so bad in joints and lungs HPI Chris Eddy is a 70 y.o. male who presents Current symptoms include: owens Recent oral steroid use 0 Recent Hospital admission 0 ED visit 0 Recent abx use 0 Constitutional: Denies fever or chills Eyes: Denies change in visual acuity HENT: Denies nasal congestion or sore throat Respiratory: 0 Cardiovascular: Denies chest pain or edema GI: Denies abdominal pain, nausea, vomiting, bloody stools or diarrhea : Denies dysuria Musculoskeletal: Denies back pain or joint pain Integument: Denies rash Neurologic: Denies headache, focal weakness or sensory changes Endocrine: Denies polyuria or polydipsia Lymphatic: Denies swollen glands Psychiatric: Denies depression or anxiety Peripheral vascular: Denies claudication Past Medical History[1] Social History[2] Current Medications[3] Allergies[4] Patient's medications, allergies, past medical, surgical, social and family histories were reviewedand updated as appropriate. Objective: PHYSICAL EXAM VITAL SIGNS: Vitals: 02/28/25 1315 BP: 140/80 BP Location: Right arm Patient Position: Sitting Pulse: 96 SpO2: 93% Weight: 277 lb (125.6 kg) Height: 6' 2 (1.88 m) Wt Readings from Last 3 Encounters: 02/28/25 277 lb (125.6 kg) 08/26/24 270 lb (122.5 kg) 06/06/24 270 lb (122.5 kg) BP 140/80 (BP Location: Right arm, Patient Position: Sitting) Pulse 96 Ht 6' 2 (1.88 m) Wt 277 lb (125.6 kg) SpO2 93% Comment: ra@rest BMI 35.56 kg/m?? General appearance: alert, appears stated age, and cooperative Head: Normocephalic, without obvious abnormality, atraumatic Nose: Nares normal. Septum midline. Mucosa normal. No drainage or sinus tenderness. Throat: lips, mucosa, and tongue normal; teeth and gums normal Lungs: clear to auscultation bilaterally Chest wall: no tenderness Heart: regular rate and rhythm, S1, S2 normal, no murmur, click, rub or gallop Abdomen: soft, non-tender; bowel sounds normal; no masses, no organomegaly Extremities: extremities normal, atraumatic, no cyanosis or edema Pulses: 2+ and symmetric Skin: Skin color, texture, turgor normal. No rashes or lesions Neurologic: Grossly normal Lab Results Component Value Date WBC 8.4 08/29/2011 HGB 15.4 08/29/2011 HCT 43.0 08/29/2011 PLT 209 08/29/2011 NA 136 08/29/2011 K 4.1 08/29/2011 CL 102 08/29/2011 CREATININE 0.7 08/29/2011 BUN 15 08/29/2011 CO2 23 08/29/2011 GLU 113 (H) 08/29/2011 CT CHEST HIGH RESOLUTION WO CONTRAST Result Date: 02/26/2025 CT CHEST HIGH-RESOLUTION WITHOUT CONTRAST, 02/26/2025 11:32 AM CLINICAL HISTORY: R05.9-Cough, bfwmqxrdqle-QPW-58-CM R06.02-Shortness of lwdbrj-MNN-77-CM J84.112- Idiopathic pulmonary fibrosis (HCC)-ICD-10-CM M05.79-Rheumatoid arthritis with rheumatoid factor of multiple sites without organ or systemsinvolvement (HCC)-ICD-10-CM. COMPARISON: June PROCEDURE COMMENTS: High-resolution CT [...] upper abdomen. Cholelithiasis. No suspicious osseous lesion. No significant change in interstitial lung disease as above. Possible early UIP pattern - Note: Radiology results need to be interpreted within a comprehensive clinical context. If you have questionsabout the radiology report, please contact the office of the ordering clinician. Pulmonary Functions Testing Results: No results found for: FEV1 , FVC , UPK9MQO , TLC , DLCO (FEV1 < 60% predicted = moderate or severe pulmonary disease) Results for orders placed or performed during the hospital encounter of 02/26/25 PULMONARY FUNCTION TEST Result Value FVC_PRE 3.09 (L) FEV1_PRE 2.30 (L) FEV1/FVC_PRE 74.52 Hb_PRE 15.40 ERV_PRE 0.36 (L) RV_PRE 1.94 RV%TLC_PRE 38.23 TLC_PRE 5.08 (L) FVC_Pre%REF 68 FEV1_Pre%REF 68 RV_Pre%REF 70 TLC_Pre%REF 64 ERV_Pre%REF 25 Impression Restrictive ventilation disorde rc/w Interstitial lung disease or Pneumonitis No results found for: ALPHA1 ABG No results found for: PCO2 , HCO3 (pCO2 > 45 or HCO3 > 29 indicates hypoventilation) Echocardiogram No results found for this or any previous visit. Assessment and Plan: Diagnostic tests were reviewed and questions answered. Diagnosis, care plan and treatment options were discussed. The patient understand instructions and will follow up as directed. 1. UIP (usual interstitial pneumonitis) (HCC) ANTINUCLEAR ANTIBODIES (TOM) SCREEN BY DONOVAN W/ REFLEX TO IFA SCLERODERMA (SCL-70) ([facility]) ANTIBODY IGG -REF LAB TUCKER ANTIBODY, IGG -REF LAB RIBONUCLEIC PROTEIN ANTIBODY, IGG -REF LAB DSDNA AB REFLEX TO TITER -REF LAB EXTRACTABLE NUCLEAR ANTIGEN ANTIOBODIES CYCLIC CITRULLINATED PEPTIDE ANTIBODY, IGG CREATINE KINASE ALDOLASE -REF LAB ANGIOTENSIN CONVERTING ENZYME -REF LAB HYPERSENSITIVITY PNEUMONITIS I - REF LAB HYPERSENSITIVITY PNEUMONITIS II - REF LAB PULMONARY FUNCTION TEST CT CHEST HIGH RESOLUTION WO CONTRAST 2. Seropositive rheumatoid arthritis of multiple sites (HCC) ANTINUCLEAR ANTIBODIES (TOM) SCREEN BYELISA W/ REFLEX TO IFA SCLERODERMA (SCL-70) ([facility]) ANTIBODY IGG -REF LAB TUCKER ANTIBODY, IGG -REF LAB RIBONUCLEIC PROTEIN ANTIBODY, IGG -REF LAB DSDNA AB REFLEX TO TITER -REF LAB EXTRACTABLE NUCLEAR ANTIGEN ANTIOBODIES CYCLIC CITRULLINATED PEPTIDE ANTIBODY, IGG CREATINE KINASE ALDOLASE -REF LAB ANGIOTENSIN CONVERTING ENZYME -REF LAB HYPERSENSITIVITY PNEUMONITIS I - REF LAB HYPERSENSITIVITY PNEUMONITIS II - REF LAB PULMONARY FUNCTION TEST CT CHEST HIGH RESOLUTION WO CONTRAST 3. SOB (shortness of breath) More sob Minimal cough Pft and ct chest unchanged 6 min walk today Repeat 6 mos Still needs ild labs [1] Past Medical History: Diagnosis Date Arthritis Bipolar 1 disorder ([facility]) bipolar manic depressive. Diabetes mellitus ([facility]) Lung disease IA (myocardial infarction) ([facility]) patient denied any heart attack at time of database call but told Jahaira Boateng he had mild heart attack 6 years ago at time of her phone call. Pulmonary fibrosis ([facility]) [2] Social History Socioeconomic History Marital status: Spouse name: None Number of children: None Years of education: None Highest education level: None Tobacco Use Smoking status: Never Smokeless tobacco: Never Tobacco comments: refused counseling. Substance and Sexual Activity Alcohol use: Not Currently Comment: rarely.1 bottle bourbon per year. Drug use: Never Sexual activity: Not Currently Partners: Female [3] Current Outpatient Medications Medication Sig Dispense Refill albuterol (PROVENTIL) 2.5 mg /3 mL (0.083 [...] Tablet Take 10 mg by mouth nightly. No current facility-administered medications for this visit. [4] No Known Allergies documented in this encounter Plan of Treatment Scheduled Orders Name Type Priority Associated Diagnoses Orde r Schedule ANTINUCLEAR ANTIBODIES (TOM) SCREEN BY DONOVAN W/ REFLEX TO IFA Lab Routine UIP (usual interstitial pneumonitis) ([facility]) Seropositive rheumatoid arthritis of multiple sites ([facility]) 1 Occurrences starting 02/28/2025 until 02/28/2026 SCLERODERMA (SCL-70) ([facility]) ANTIBODY IGG -REF LAB Lab Routine UIP (usual interstitial pneumonitis) ([facility]) Seropositive rheumatoid arthritis of multiple sites ([facility]) 1 Occurrences starting 02/28/2025 until 02/28/2026 TUCKER ANTIBODY, IGG -REF LAB Lab Routine UIP (usual interstitial pneumonitis) ([facility]) Seropositive rheumatoid arthritis of multiple sites ([facility]) 1 Occurrences starting 02/28/2025 until 02/28/2026 RIBONUCLEIC PROTEIN ANTIBODY, IGG -REF LAB Lab Routine UIP (usual interstitial pneumonitis) ([facility]) Seropositive rheumatoid arthritis of multiple sites ([facility]) 1 Occurrences starting 02/28/2025 until 02/28/2026 DSDNA AB REFLEX TO TITER -REF LAB Lab Routine UIP (usual interstitial pneumonitis) ([facility]) Seropositive rheumatoid arthritis of multiple sites ([facility]) 1 Occurrences starting 02/28/2025 until 02/28/2026 EXTRACTABLE NUCLEAR ANTIGEN ANTIOBODIES Lab Routine UIP (usual interstitial pneumonitis) ([facility]) Seropositive rheumatoid arthritis of multiple sites ([facility]) 1 Occurrences starting 02/28/2025 until 02/28/2026 CYCLIC CITRULLINATED PEPTIDE ANTIBODY, IGG Lab Routine UIP (usual interstitial pneumonitis) ([facility]) Seropositive rheumatoid arthritis of multiple sites ([facility]) 1 Occurrences starting 02/28/2025 until 02/28/2026 CREATINE KINASE Lab Routine UIP (usual interstitial pneumonitis) ([facility]) Seropositive rheumatoid arthritis of multiple sites ([facility]) 1 Occurrences starting 02/28/2025 until 02/28/2026 ALDOLASE -REF LAB Lab Routine UIP (usual interstitial pneumonitis) ([facility]) Seropositive rheumatoid arthritis of multiple sites ([facility]) 1 Occurrences starting 02/28/2025 until 02/28/2026 ANGIOTENSIN CONVERTING ENZYME -REF LAB Lab Routine UIP (usual interstitial pneumonitis) ([facility]) Seropositive rheumatoid arthritis of multiple sites ([facility]) 1 Occurrences starting 02/28/2025 until 02/28/2026 HYPERSENSITIVITY PNEUMONITIS I - REF LAB Lab Routine UIP (usual interstitial pneumonitis) (HCC) Seropositive rheumatoid arthritis of multiple sites (HCC) 1 Occurrences starting 02/28/2025 until 02/28/2026 HYPERSENSITIVITY PNEUMONITIS II - REF LAB Lab Routine UIP (usual interstitial pneumonitis) (HCC) Seropositive rheumatoid arthritis of multiple sites (HCC) 1 Occurrences starting 02/28/2025 until 02/28/2026 PULMONARY FUNCTION TEST PFT Routine UIP (usual interstitial pneumonitis) (HCC) Seropositive rheumatoid arthritis of multiple sites (HCC) 1 Occurrences starting 02/28/2025 until 02/28/2026 CT CHEST HIGH RESOLUTION WO CONTRAST Imaging Routine UIP (usual interstitial pneumonitis) (HCC) Seropositive rheumatoid arthritis of multiple sites (HCC) 1 Occurrences starting 02/28/2025 until 02/28/2026 documented as of this encounter Visit Diagnoses Diagnosis UIP (usual interstitial pneumonitis) ([facility])- Primary Postinflammatory pulmonary fibrosis Seropositive rheumatoid arthritis of multiple sites ([facility]) SOB (shortness of breath) Shortness of breath documented in this encounter Care Teams Insurance Underwriter Sales Relationship Specialty Start Date End Date Kimberly Andrews MD [address] [place] [address] PCP - General Family Medicine 08/29/11 documented as of this encounter
--- OUTSIDE RECORDS SUMMARY | 2025-03-24 19:22 | XMS_ITS | Clinical Summary ---
Author Organization [facility] Address [address] [place] [address] Phone Care Team Providers Care Filter Washer And Presser Name Role Phone Kimberly Andrews MD Primary Care Provider [phone] Allergies No known active allergies Medications omeprazole [...] Encounters Date Type Department Care Team Description 02/28/2025 1:00 PM EST Office Visit [facility] Pulmonology [facility] [address] [facility] [address] [place] [address] Ryan Lockett MD UIP (usual interstitial pneumonitis) (HCC) (Primary Dx); Seropositive rheumatoid arthritis of multiple sites (HCC); SOB (shortness of breath) 02/26/2025 11:20 AM EST - 02/26/2025 11:59 PM EST Hospital Encounter [facility] [address] [place] [address] Ryan Lockett MD Cough, unspecified type; SOB (shortness of breath); UIP (usual interstitial pneumonitis) (HCC); Seropositive rheumatoid arthritis of multiple sites (HCC) Discharge Disposition: Home or Self Care 02/26/2025 11:20 AM EST - 02/26/2025 11:59 PM EST Hospital Encounter [facility] [address] [place] [address] Ryan Lockett MD Cough, unspecified type; SOB (shortness of breath); UIP (usual interstitial pneumonitis) (HCC); Seropositive rheumatoid arthritis of multiple sites (HCC) Discharge Disposition: Home or Self Care 02/24/2025 Travel from Last 3 Months Surgical History Surgery Date Site/Laterality Comments ELBOW SURGERY right elbow surgery due to work injury-elbow was crushed. FINGER SURGERY left index finger surgery due to blood poisoning. CHOLECYSTECTOMY 2019 polyp Medical History Medical History Date Comments Arthritis Bipolar 1 disorder (HCC) bipolar manic depressive. GA (myocardial infarction) (HCC) patient denied any heart attack at time of database call but told Jahaira Boateng he had mild heart attack 6 years ago at time of her phone call. Pulmonary fibrosis (HCC) Lung disease Diabetes mellitus (HCC) Family History Medical History Relation Name Comments [...] on file Sexual Orientation Not on file Last Filed Vital Signs Vital Sign Reading Time Taken Comments Blood Pressure 140/80 02/28/2025 1:15 PM EST Pulse 96 02/28/2025 1:15 PM EST Temperature 36.2 C (97.2 F) 03/07/2023 3:59 PM EST Respiratory Rate 18 03/07/2023 3:59 PM EST Oxygen Saturation 93% 02/28/2025 1:15 PM EST ra@rest Inhaled Oxygen Concentration - - Weight 125.6 kg (277 lb) 02/28/2025 1:15 PM EST Height 188 cm (6' 2 ) 02/28/2025 1:15 PM EST Body Mass Index 35.56 02/28/2025 1:15 PM EST Plan of Treatment Health Maintenance Due Date Last Done Comments Wellness Exam Medicare 1958 Hepatitis C Screening 1973 Cologuard 02/08/2000 Colon Cancer Screening 02/08/2000 Colonoscopy 02/08/2000 FIT 02/08/2000 Sigmoidoscopy 02/08/2000 Virtual Colonography 02/08/2000 RSV or 60+ (1 - Ris k 50-74 years 1-dose series) 2005 Zoster (1 of 2) 2005 COVID-19 Vaccine ( - 2024-2 6 season) 2024 Influenza Vaccine (#1) 2024 7, 2012 DTaP/TDaP/Td (4 - Td or Tdap) 11/21/2034, 03/26/2013, 2012 Pneumococcal Vaccine 50+ Completed 024, 04/07/2020, [...] Seropositive rheumatoid arthritis of multiple sites (HCC) PULMONARY FUNCTION TEST Routine 02/26/2025 11:20 AM EST Cough, unspecified type SOB (shortness of breath) UIP (usual interstitial pneumonitis) (HCC) Seropositive rheumatoid arthritis of multiple sites (HCC) from Last 3 Months Results * CT CHEST HIGH RESOLUTION WO [...] CONTRAST, 02/26/2025 11:32 AM CLINICAL HISTORY: R05.9-Cough, eaciwxeelso-FLY-38-CM R06.02-Shortness of fbxqwe-RNA-67-CM J84.112-Idiopathic pulmonary fibrosis (HCC)-ICD-10-CM M05.79-Rheumatoid arthritis with [...] CONTRAST, 02/26/2025 11:32 AM CLINICAL HISTORY: R05.9-Cough, pgetxvhgdvd-QXK-84-CM R06.02-Shortness of evdacx-JQM-26-CM J84.112-Idiopathic pulmonary fibrosis (HCC)-ICD-10-CM M05.79-Rheumatoid arthritis with [...] of the ordering clinician. Ryan Lockett MD [facility] ORDERABLES Final Result * (ABNORMAL) PULMONARY FUNCTION TEST (02/26/2025 11:20 AM EST) FVC_PRE 3.09(L) 3.38 - 5.73 L 02/26/2025 2:02 PM EST [facility] FEV1_PRE 2.30(L) 2.48 - 4.26 L 02/26/2025 2:02 PM EST [facility] FEV1/FVC_PRE 74.52 62.88 - 86.43 % 02/26/2025 2:02 PM EST [facility] Hb_PRE 15.40 g(Hb)/dL 02/26/2025 2:02 PM EST [facility] ERV_PRE 0.36(L) 0.46 - 2.89 L 02/26/2025 2:02 PM EST [facility] RV_PRE 1.94 1.66 - 4.15 L 02/26/2025 2:02 PM EST [facility] RV%TLC_PRE 38.23 24.02 - 46.71 % 02/26/2025 2:02 PM EST [facility] TLC_PRE 5.08(L) 6.24 - 9.54 L 02/26/2025 2:02 PM EST [facility] FVC_Pre%REF 68 % 02/26/2025 2:02 PM EST [facility] FEV1_Pre%REF 68 % 02/26/2025 2:02 PM EST [facility] RV_Pre%REF 70 % 02/26/2025 2:02 PM EST [facility] TLC_Pre%REF 64 % 02/26/2025 2:02 PM EST [facility] ERV_Pre%REF 25 % 02/26/2025 2:02 PM EST [facility] 02/26/2025 11:2 0 AM EST Impressions [facility] - 02/26/2025 2:02 PM EST Restrictive ventilation disorde rc/w Interstitial lung disease or Pneumonitis us Ryan Lockett MD PFT ORDERABLES Final Result Performing Organization Address City/State/[facility] de Phone Number [facility] [address] [phone] from Last 3 Months Insurance AALIYAH KRUSE MR SHAWCINDY URIAH MR Care Teams Filter Washer And Presser Relationship Specialty Start Date End Date Kimberly Andrews MD [address] [place] [id number] PCP - General Family Medicine 08/29/11
--- OUTSIDE RECORDS SUMMARY | 2025-03-24 19:22 | XMS_ITS | Encounter Summary ---
Author Organization [facility] [place] [address] Care Team Providers Care Pie Filling Mixer Name Role Phone Kimberly Andrews MD Primary Care Provider [phone] Encounter Details Date Type Department Care Team (Latest Contact Info) Description 02/24/2025 Travel Social History Tobacco Use Types Packs/Day Years [...] Diagnoses Not on filedocumented in this encounter Care Teams Pie Filling Mixer Relationship Specialty Start Date End Date Kimberly Andrews MD [address] [place], [place] [id number] PCP - General Family Medicine 08/29/11 documented as of this encounter
--- OUTSIDE RECORDS SUMMARY | 2025-03-24 19:22 | XMS_ITS | Clinical Summary ---
Author Organization [facility] Address [address] [place] [address] Care Team Providers Care Pot Room Tapper Name Role Phone Paolo Colunga MD Primary Care Provider [phone] Allergies No known active allergies Medications atorvastatin [...] Health Maintenance Due Date Last Done Comments [facility] Annual Wellness (AWV) 1955 Y-/Child/Adol SDOH Screenings 1955 [id number] Vaccine (#1) 02/08/1960 [facility]- SDOH Screenings 1973 [...] Antigen Negative Negative 09/14/2021 3:39 PM EDT [facility] Hepatitis C Antibody Negative Negative 09/14/2021 3:39 PM EDT [facility] Hepatitis A Antibody IgM Negative Negative 09/14/2021 3:39 PM EDT [facility] Hepatitis B Core Antibody IgM Negative Negative 09/14/2021 3:39 PM EDT [facility] Blood Venous blood specimen / Unknown Venipuncture / Unknown 09/14/2021 1:31 PM EDT 09/14/2021 1:31 PM EDT us Marilynn Segundo Hernandez CERTIFIED FIRST ASSISTANT LAB BLOOD ORDERABLES Imelda taveras Result [facility] [address] [place] [address] from Last 3 Months or Most Recently Relevant to Health Maintenance Insurance [employer] Care Teams Pot Room Tapper Relationship Specialty Start Date End Date Paolo Colunga MD PCP - General 08/02/21
--- OUTSIDE RECORDS SUMMARY | 2025-03-24 19:22 | XMS_ITS | Encounter Summary ---
Author Organization [facility] Address [address] [id number] Care Team Providers Care Rigger Apprentice Name Role Phone Paolo Colunga MD Primary Care Provider [phone] Encounter Details Date Type Department Care Team (Late st Contact Info) Description 12/22/2023 [facility] [address] [place] [address] Paolo Colunga MD [address] [place] [address] Social History Tobacco Use Types Packs/Day Years [...] documented as of this encounter Care Teams Rigger Apprentice Relationship Specialty Start Date End Date Paolo Colunga MD PCP - General 08/02/21 documented as of this encounter
--- OUTSIDE RECORDS SUMMARY | 2025-03-24 19:22 | XMS_ITS | Encounter Summary ---
Author Organization [facility] Address [address] [place] [address] Care Team Providers Care Family And Consumer Science Professor Name Role Phone Paolo Colunga MD Primary Care Provider [phone] Reason for Referral * Consultation (Routine) - Closed Specialty Diagnoses / Procedures Referred By Contac t Referred To Contact Rheumatology Diagnoses Elevated rheumatoid factor Elevated sed rate Elevated C-reactive protein (CRP) Paolo Colunga MD Phone: tel: fax: Referral ID Status Reason Start Date Expiration Date V isits Requested Visits Authorized [id number] Closed Specialty Services Required 08/02/2021 02/01/2023 1 1 Encounter Details Date Type Department Care Team (Late st Contact Info) Description 08/02/2021 [facility] [address] [place] [address] Paolo Colunga MD [facility] [place] [address] Elevated rheumatoid factor (Primary Dx); Elevated sed [...] (CRP) documented in this encounter Care Teams Family And Consumer Science Professor Relationship Specialty Start Date End Date Paolo Colunga MD PCP - General 08/02/21 documented as of this encounter
[2025-03-24 19:39] LABS: Chloride 99 mmol/L (98-107)
[2025-03-24 19:40] LABS: Albumin Level 4.2 g/dl (3.5-5.0); Potassium 4.3 mmoL/L (3.5-5.1); Sodium 137 mmol/L (136-145)
[2025-03-24 19:41] LABS: Hematocrit 41.7 % (42.0-52.0); Hemoglobin 14.0 g/dL (14.1-18.0); Immature Granulocytes % 0.6 %; Mean Corpuscular HGB Conc 33.6 g/dL (31.8-35.4); Mean Corpuscular Hemoglobin 32.9 pg (27.0-31.2); Mean Corpuscular Volume 98.1 fl (80-94); Nucleated Red Blood Cells % 0 %; Platelet Count 192 K/mm3 (142-424); Red Blood Count 4.25 M/mm3 (4.60-6.20); Red Cell Distribution Width-SD 52.0 fL; White Blood Count 13.8 K/mm3 (4.8-10.8)
[2025-03-24 19:42] LABS: Alanine Aminotransferase 48 U/L (12-78); Anion Gap 15.3 mEq/L (5-15); Aspartate Amino Transferase 38 U/L (17-59); Blood Urea Nitrogen 17 mg/dl (9-20); Carbon Dioxide 27 mmol/L (22.0-30.0); Creatinine,Serum 0.80 mg/dl (0.66-1.25); Estimated Glomerular Filt Rate 96 ml/min (>60); GFR (African American) 116 ML/MIN (>60)
[2025-03-24 19:43] LABS: Albumin/Globulin Ratio 1.4 (1.1-1.8); Alkaline Phosphatase 62 U/L (38-126); Bilirubin,Total 0.6 mg/dl (0.2-1.3); Calcium 9.0 mg/dl (8.4-10.2); Globulin 3.0 g/dL (1.3-3.2); Glucose 121 mg/dl (74-100); Total Protein,Serum 7.2 g/dl (6.3-8.2)
== END 2025-03-24 23:59 | disposition home or self-care (01) ==
LOC: LAB.DROPOF 19:20
PROVIDERS: PCP Family Medicine
DX: C44.91 Basal cell carcinoma of skin, unspecified (principal); M05.79 Rheumatoid arthritis with rheumatoid factor of multiple sites without organ or systems involvement; E11.9 Type 2 diabetes mellitus without complications; K21.9 Gastro-esophageal reflux disease without esophagitis; J84.9 Interstitial pulmonary disease, unspecified; Z79.899 Other long term (current) drug therapy
CPT/HCPCS: 80053; 85025

== ENCOUNTER 2025-04-01 15:01 | Outpatient (CLI) | payer MEDICARE, SELFPAY ==
[2025-04-01 15:26] LABS: Hematocrit 41.9 % (42.0-52.0); Hemoglobin 14.0 g/dL (14.1-18.0); Immature Granulocytes % 0.6 %; Mean Corpuscular HGB Conc 33.4 g/dL (31.8-35.4); Mean Corpuscular Hemoglobin 32.4 pg (27.0-31.2); Mean Corpuscular Volume 97.0 fl (80-94); Nucleated Red Blood Cells % 0 %; Platelet Count 214 K/mm3 (142-424); Red Blood Count 4.32 M/mm3 (4.60-6.20); Red Cell Distribution Width-SD 50.1 fL; White Blood Count 10.1 K/mm3 (4.8-10.8)
[2025-04-01 15:35] LABS: Alanine Aminotransferase 47 U/L (12-78); Albumin Level 4.1 g/dl (3.5-5.0); Albumin/Globulin Ratio 1.3 (1.1-1.8); Alkaline Phosphatase 73 U/L (38-126); Anion Gap 14.8 mEq/L (5-15); Aspartate Amino Transferase 32 U/L (17-59); Bilirubin,Total 0.6 mg/dl (0.2-1.3); Blood Urea Nitrogen 12 mg/dl (9-20); Calcium 9.3 mg/dl (8.4-10.2); Carbon Dioxide 27 mmol/L (22.0-30.0); Chloride 101 mmol/L (98-107); Creatinine,Serum 0.80 mg/dl (0.66-1.25); Estimated Glomerular Filt Rate 96 ml/min (>60); GFR (African American) 116 ML/MIN (>60); Globulin 3.2 g/dL (1.3-3.2); Glucose 99 mg/dl (74-100); Potassium 3.8 mmoL/L (3.5-5.1); Sodium 139 mmol/L (136-145); Total Protein,Serum 7.3 g/dl (6.3-8.2)
== END 2025-04-01 23:59 | disposition home or self-care (01) ==
LOC: LAB.DROPOF 15:02
PROVIDERS: PCP Family Medicine; Visit Provider Family Medicine
DX: C44.91 Basal cell carcinoma of skin, unspecified (principal); M05.79 Rheumatoid arthritis with rheumatoid factor of multiple sites without organ or systems involvement; E11.9 Type 2 diabetes mellitus without complications; K21.9 Gastro-esophageal reflux disease without esophagitis; J84.9 Interstitial pulmonary disease, unspecified; Z79.899 Other long term (current) drug therapy
CPT/HCPCS: 80053; 85025